=== PATIENT | female | born 1950 | race African-American/Black ===

== ENCOUNTER 2017-03-12 13:24 | Inpatient (IN) | payer MEDICARE, MEDICAID ==
[~2017-03-12] VITALS: Ht 152.4 cm; Wt 89.1 kg
[2017-03-12 14:13] LABS: Basophils # (auto) 0 uL; Basophils % (auto) 0.7 % (0.0-2.0); DEFINITIVE VIEW TRANSMISSION; Eosinophils # (auto) 0.1 uL; Eosinophils % (auto) 2.4 % (0.0-7.0); Hematocrit 37.1 % (36.0-46.0); Lymphocytes # (auto) 1.6 uL; Lymphocytes % (auto) 46.8 % (10.0-50.0); Mean Corpuscular Hemoglobin 25.8 pg (28.0-32.0); Mean Corpuscular Hgb Conc. 32.5 g/dL (32.0-36.0); Mean Corpuscular Volume 79.3 fL (80.0-100.0); Mean Platelet Volume 7.9 fL (7.4-10.4); Monocytes # (auto) 0.3 uL; Monocytes % (auto) 8.5 % (0.0-12.0); Neutrophils # (auto) 1.4 uL; Neutrophils % (auto) 41.6 % (37.0-80.0); Platelet Count (auto) 338 10^3/uL (140-450); Red Cell Distribution Width 14.3 % (11.6-16.0); White Blood Cell 3.3 10^3/uL (4.4-10.8)
[2017-03-12 14:39] LABS: Albumin 3.1 g/dL (3.4-5.0); Alkaline Phosphatase 83 U/L (45-117); Anion Gap 11 (5-15); Aspartate Aminotransferase 14 U/L (15-37); BUN/Creatinine Ratio 10.1; Bilirubin, Total 0.3 mg/dL (0.2-1.0); Blood Urea Nitrogen 8 mg/dL (7-18); Calcium 8.9 mg/dL (8.5-10.1); Carbon Dioxide 27 mmol/L (21-32); Chloride 108 mmol/L (98-107); GFR African American 94 mL/min; GFR Non-African American 78 mL/min; Glucose 80 mg/dL (74-106); Magnesium 1.9 mg/dL (1.6-2.6); Potassium 3.1 mmol/L (3.5-5.1); Sodium 146 mmol/L (136-145); Total Protein 7.4 g/dL (6.4-8.2)
[2017-03-12] MEDS ORDERED: ASPirin 81 mg TAB PO ONE (20:00)
[2017-03-12] MEDS ORDERED: POTASSIUM CHL 20 Meq TABLET PO ONE (20:00)
[2017-03-12] MEDS: ATORVASTATIN 20 MG TAB PO SCH (22:12)
[2017-03-12] MEDS: FAMOTIDINE 20 MG TAB PO SCH (22:13)
[2017-03-12] MEDS: ENOXAPARIN SOD 40 MG/0.4 ML SYRINGE SC SCH (22:14)
[2017-03-12] MEDS ORDERED: TEMAZEPAM 15 MG CAP PO PRN (22:15)
[2017-03-12] MEDS ORDERED: HYDROcodone-ACET 5/325MG TAB PO PRN (22:15)
[2017-03-12] MEDS ORDERED: ACETAMINOPHEN 325 MG TAB PO PRN (22:15)
[2017-03-12] MEDS ORDERED: ONDANSETRON HCL 4 MG/2 ML VIAL IV PRN (22:15)
[2017-03-12] MEDS: DONEPEZIL HYDROCHLORIDE 5 MG TAB PO SCH (22:21)
[2017-03-12] MEDS: CARVEDILOL 3.125 MG TAB PO SCH (22:22)
[2017-03-12 22:30] VITALS: BP 104/41
[2017-03-12 23:05] VITALS: BP 104/41
[2017-03-13] MEDS ORDERED: ZOLP10TA PO (01:46)
[2017-03-13] MEDS ORDERED: FLUO20CA19 PO (01:46)
[2017-03-13] MEDS ORDERED: OXY10CRT PO (01:46)
[2017-03-13] MEDS ORDERED: DONE10TA17 PO (01:46)
[2017-03-13] MEDS ORDERED: NORT25CA PO (01:46)
[2017-03-13] MEDS ORDERED: AML5T PO (01:46)
[2017-03-13] MEDS ORDERED: METO-169 PO (01:46)
[2017-03-13 03:26] LABS: Urine Bilirubin Negative (Negative); Urine Blood Negative /uL (Negative); Urine Color Yellow (Yellow); Urine Glucose Normal (Normal); Urine Ketone Negative (Negative); Urine Mucus FEW (None Seen); Urine Nitrite Negative (Negative); Urine RBC 1 /hpf (0 - 4); Urine Squamous Epithelial Cell FEW /hpf (<5); Urine Urobilinogen Normal (Negative)
[2017-03-13 05:00] VITALS: BP_SYST 127; BP_SYST 144; BP_DIAS 63; BP_DIAS 73
[2017-03-13 06:38] LABS: Basophils # (auto) 0 uL; Basophils % (auto) 0.4 % (0.0-2.0); DEFINITIVE VIEW TRANSMISSION; Eosinophils # (auto) 0.1 uL; Eosinophils % (auto) 2.1 % (0.0-7.0); Hematocrit 36.4 % (36.0-46.0); Hemoglobin 11.9 g/dL (12.2-16.2); Lymphocytes # (auto) 1.8 uL; Lymphocytes % (auto) 42.8 % (10.0-50.0); Mean Corpuscular Hemoglobin 26.2 pg (28.0-32.0); Mean Corpuscular Hgb Conc. 32.7 g/dL (32.0-36.0); Mean Platelet Volume 7.9 fL (7.4-10.4); Monocytes # (auto) 0.4 uL; Monocytes % (auto) 9.7 % (0.0-12.0); Neutrophils # (auto) 1.9 uL; Platelet Count (auto) 303 10^3/uL (140-450); Red Cell Distribution Width 14.2 % (11.6-16.0); White Blood Cell 4.1 10^3/uL (4.4-10.8)
[2017-03-13 07:09] LABS: Albumin 2.6 g/dL (3.4-5.0); BUN/Creatinine Ratio 14.3; Bilirubin, Total 0.3 mg/dL (0.2-1.0); Calcium 8.4 mg/dL (8.5-10.1); Potassium 3.4 mmol/L (3.5-5.1); Total Protein 6.6 g/dL (6.4-8.2)
[2017-03-13 09:00] VITALS: BP 119/67
[2017-03-13] MEDS: FAMOTIDINE 20 MG TAB PO SCH ×2 (10:00→21:45)
[2017-03-13] MEDS: FLUoxetine HCL 20 MG CAP PO SCH (10:00)
[2017-03-13] MEDS: METOPROLOL SUCCINATE XL 50 MG TAB PO SCH (10:00)
[2017-03-13] MEDS: ASPirin 325 MG TAB PO SCH (10:00)
[2017-03-13] MEDS: amLODIPine BESYLATE 5 MG TAB PO SCH (10:01)
[2017-03-13] MEDS: CARVEDILOL 3.125 MG TAB PO SCH ×2 (10:01→21:45)
[2017-03-13 12:15] VITALS: BP 140/77
[2017-03-13 15:54] VITALS: BP 112/61
[2017-03-13] MEDS: ENOXAPARIN SOD 40 MG/0.4 ML SYRINGE SC SCH (21:44)
[2017-03-13] MEDS: ATORVASTATIN 20 MG TAB PO SCH (21:44)
[2017-03-13] MEDS: DONEPEZIL HYDROCHLORIDE 5 MG TAB PO SCH (21:45)
[2017-03-13 22:00] VITALS: BP 104/64
[2017-03-13] MEDS ORDERED: CALCIUM CARB 500 MG CHEW TAB PO PRN (23:15)
[2017-03-14 05:00] VITALS: BP 125/63
[2017-03-14 10:02] VITALS: BP 131/99
[2017-03-14] MEDS: ASPirin 325 MG TAB PO SCH (10:25)
[2017-03-14] MEDS: FAMOTIDINE 20 MG TAB PO SCH ×2 (10:25→21:50)
[2017-03-14] MEDS: amLODIPine BESYLATE 5 MG TAB PO SCH (10:26)
[2017-03-14] MEDS: FLUoxetine HCL 20 MG CAP PO SCH (10:26)
[2017-03-14] MEDS: CARVEDILOL 3.125 MG TAB PO SCH (10:27)
[2017-03-14] MEDS: METOPROLOL SUCCINATE XL 50 MG TAB PO SCH (10:27)
[2017-03-14 10:35] LABS: BUN/Creatinine Ratio 12.6; Calcium 8.4 mg/dL (8.5-10.1); Magnesium 1.8 mg/dL (1.6-2.6); Potassium 3.5 mmol/L (3.5-5.1)
[2017-03-14 10:56] LABS: Hematocrit 36.7 % (36.0-46.0); Hemoglobin 12.1 g/dL (12.2-16.2)
[2017-03-14] MEDS ORDERED: MAGNESIUM SULFATE 1GM/100ML 100 ML IV ONE (11:00)
[2017-03-14] MEDS ORDERED: POTASSIUM CHL 20 Meq TABLET PO ONE (11:15)
[2017-03-14 17:07] VITALS: BP 97/61
[2017-03-14 21:07] VITALS: BP 113/59
[2017-03-14 21:10] VITALS: BP 117/72
[2017-03-14 21:16] VITALS: BP 97/61
[2017-03-14] MEDS: ENOXAPARIN SOD 40 MG/0.4 ML SYRINGE SC SCH (21:48)
[2017-03-14] MEDS: DONEPEZIL HYDROCHLORIDE 5 MG TAB PO SCH (21:49)
[2017-03-14] MEDS: ATORVASTATIN 20 MG TAB PO SCH (21:50)
[2017-03-15 05:01] VITALS: BP 101/58
[2017-03-15 06:00] LABS: Cholesterol 182 mg/dL (< 200); HDL Cholesterol 68 mg/dL (40-59); LDL Cholesterol 108 mg/dL (< 100); Triglycerides 68 mg/dL (< 150)
[2017-03-15 08:45] VITALS: BP 148/84
[2017-03-15] MEDS ORDERED: ASPirin 325 MG TAB PO SCH (10:00)
[2017-03-15] MEDS: FAMOTIDINE 20 MG TAB PO SCH ×2 (10:41→22:09)
[2017-03-15] MEDS: FLUoxetine HCL 20 MG CAP PO SCH (10:41)
[2017-03-15] MEDS: amLODIPine BESYLATE 5 MG TAB PO SCH (10:41)
[2017-03-15] MEDS: METOPROLOL SUCCINATE XL 50 MG TAB PO SCH (10:42)
[2017-03-15 12:59] VITALS: BP 111/54
[2017-03-15] MEDS ORDERED: LORazepam 2MG/ML-1ML VIAL IV ONE (14:15)
[2017-03-15] MEDS ORDERED: MAGNESIUM OXIDE 400 MG TAB PO ONE (14:15)
[2017-03-15 16:21] VITALS: BP 111/59
[2017-03-15 17:16] VITALS: BP 97/46
[2017-03-15 21:50] VITALS: BP 115/62
[2017-03-15] MEDS: ATORVASTATIN 20 MG TAB PO SCH (22:09)
[2017-03-15] MEDS: DONEPEZIL HYDROCHLORIDE 5 MG TAB PO SCH (22:09)
== END 2017-03-15 22:30 | disposition home or self-care (01) | DRG 65 ==
LOC: ER 13:24 → OVERFLOW 13:25 → EAST 23:08
PROVIDERS: ADMIT Internal Medicine; ATTEND Internal Medicine
PROC: 5A09357 Assistance with Respiratory Ventilation, Less than 24 Consecutive Hours, Continuous Positive Airway Pressure (ICD-10-PCS; principal; 2017-03-14)
DX: I63.9 Cerebral infarction, unspecified (principal); E44.1 Mild protein-calorie malnutrition; E87.5 Hyperkalemia; E66.9 Obesity, unspecified; F32.9 Major depressive disorder, single episode, unspecified; E87.6 Hypokalemia; F41.9 Anxiety disorder, unspecified; J32.0 Chronic maxillary sinusitis; Z90.710 Acquired absence of both cervix and uterus; Z80.6 Family history of leukemia; Z82.0 Family history of epilepsy and other diseases of the nervous system; Z82.49 Family history of ischemic heart disease and other diseases of the circulatory system; Z82.3 Family history of stroke; Z83.3 Family history of diabetes mellitus; Z79.82 Long term (current) use of aspirin; Z86.73 Personal history of transient ischemic attack (TIA), and cerebral infarction without residual deficits
CPT/HCPCS: 36415; 70450; 70551; 80048; 80053; 80061; 81001; 83090; 83735; 84484; 85014; 85018; 85025; 93005; 93306; 93886; 94660; 94762; 99291; J2405

== ENCOUNTER 2017-11-29 17:33 | Emergency (ER) | payer MEDICARE, MEDICAID ==
[~2017-11-29] VITALS: Ht 152.4 cm; Wt 74.8 kg
[~2017-11-29 17:33] MED LIST: AML5T PO; DONE10TA17 PO; FLUO20CA19 PO; METO-169 PO; NORT25CA PO; OXY10CRT PO; ZOLP10TA PO
[2017-11-29 18:48] VITALS: BP 152/66
[2017-11-29] MEDS ORDERED: KETOROLAC TROMETH 60MG/2ML VIAL IM ONE (19:30)
== END 2017-11-29 20:23 | disposition home or self-care (01) ==
LOC: ER 17:38
DX: M54.5 Low back pain (principal); I10 Essential (primary) hypertension; Z90.710 Acquired absence of both cervix and uterus; Z79.899 Other long term (current) drug therapy
CPT/HCPCS: 74176; 96372; 99284; J1885

== ENCOUNTER 2017-12-28 22:31 | Inpatient (IN) | payer MEDICARE, MEDICAID ==
[~2017-12-28] VITALS: Ht 152.4 cm; Wt 80.8 kg
[2017-12-28] MEDS ORDERED: cloNIDine HCL 0.1 MG TAB PO ONE (23:00)
[2017-12-28] MEDS ORDERED: PANT40TA2 PO (23:11)
[2017-12-28] MEDS ORDERED: CYCL5TAB PO (23:11)
[2017-12-28] MEDS ORDERED: NAP500T PO (23:11)
[2017-12-28 23:39] LABS: Alanine Aminotransferase 15 U/L (13-56); Albumin 3.4 g/dL (3.4-5.0); Alkaline Phosphatase 81 U/L (45-117); Anion Gap 9 (5-15); Aspartate Aminotransferase 8 U/L (15-37); BUN/Creatinine Ratio 16.7; Bilirubin, Total 0.6 mg/dL (0.2-1.0); Blood Urea Nitrogen 11 mg/dL (7-18); Calcium 8.9 mg/dL (8.5-10.1); Carbon Dioxide 23 mmol/L (21-32); Chloride 109 mmol/L (98-107); GFR African American 115 mL/min; GFR Non-African American 95 mL/min; Glucose 82 mg/dL (74-106); Potassium 3.3 mmol/L (3.5-5.1); Sodium 141 mmol/L (136-145); Total Protein 7.7 g/dL (6.4-8.2)
[2017-12-28 23:45] LABS: Monocytes # (auto) 0.5 uL
[2017-12-28 23:47] LABS: Basophils # (auto) 0.1 uL; Basophils % (auto) 1.6 % (0.0-2.0); Eosinophils # (auto) 0.1 uL; Eosinophils % (auto) 3.1 % (0.0-7.0); Hematocrit 38.7 % (36.0-46.0); Hemoglobin 12.7 g/dL (12.2-16.2); Lymphocytes # (auto) 1.6 uL; Mean Corpuscular Hemoglobin 26.7 pg (28.0-32.0); Mean Corpuscular Hgb Conc. 32.8 g/dL (32.0-36.0); Mean Corpuscular Volume 81.3 fL (80.0-100.0); Monocytes % (auto) 10.9 % (0.0-12.0); Neutrophils # (auto) 2.3 uL; Neutrophils % (auto) 49.4 % (37.0-80.0); Nucleated Red Blood Cells % 0.2 %; Platelet Count (auto) 232 10^3/uL (140-450); Red Blood Cells 4.77 10^6/uL (4.0-5.20); Red Cell Distribution Width 15.2 % (11.8-14.3); White Blood Cell 4.6 10^3/uL (4.4-10.8)
[2017-12-29] MEDS ORDERED: NALBUPHINE HCL 10 MG/1ml INJECTION IV ONE (00:45)
[2017-12-29] MEDS ORDERED: ONDANSETRON HCL 4 MG/2 ML VIAL IV ONE (01:30)
[2017-12-29] MEDS ORDERED: POTASSIUM CHL 20MEQ/100ML 100 ML IV ONE (02:15)
[2017-12-29] MEDS ORDERED: SODIUM CHLORIDE 0.9% 500 ML IV ONE (02:15)
[2017-12-29] MEDS ORDERED: SODIUM CHLORIDE 0.9% 1,000 ML IV SCH (03:01)
[2017-12-29] MEDS ORDERED: NITROGLYCERIN 0.4 MG SL TAB SL PRN (03:15)
[2017-12-29] MEDS ORDERED: ACETAMINOPHEN 325 MG TAB PO PRN (03:15)
[2017-12-29] MEDS ORDERED: MORPHINE SULFATE 4 MG/ML SYR/VIAL IV PRN (03:15)
[2017-12-29] MEDS ORDERED: ONDANSETRON HCL 4 MG/2 ML VIAL IV PRN (03:15)
[2017-12-29] MEDS ORDERED: ALBUMIN 5% 250 ML IV ONE (03:45)
[2017-12-29 03:55] LABS: Urine Bacteria NONE SEEN /hpf (None Seen); Urine Blood Negative /uL (Negative); Urine Specific Gravity 1.011 (1.001-1.035); Urine WBC 1 /hpf (0 - 5)
[2017-12-29 04:05] LABS: Alcohol, Urine < 3.0 mg/dL (0-5); Amphetamine Screen, Urine NEGATIVE (NEGATIVE); Barbiturate Scree,Urine NEGATIVE (NEGATIVE); Benzodiazephine Screen, Urine NEGATIVE (NEGATIVE); Cannabinoid Screen, Urine NEGATIVE (NEGATIVE); Cocaine Screen, Urine NEGATIVE (NEGATIVE); Opiate Scree,Urine NEGATIVE (NEGATIVE); Phencyclidine Screen, Urine NEGATIVE (NEGATIVE)
[2017-12-29] MEDS ORDERED: NOREPINEPHRINE 8 MG/250ML KIT 250 ML IV ONE (05:03)
[2017-12-29 06:50] VITALS: BP 118/72
[2017-12-29] MEDS: NOREPINEPHRINE 8 MG/250ML KIT 250 ML IV SCH (07:10)
[2017-12-29 08:30] VITALS: BP 138/78
[2017-12-29 09:15] VITALS: BP 138/78
[2017-12-29] MEDS: amLODIPine BESYLATE 5 MG TAB PO SCH (09:22)
[2017-12-29] MEDS: cefTRIAXone 1GM/10ml IVPUSH 10 ML IV SCH (09:47)
[2017-12-29] MEDS: PANTOPRAZOLE 40 MG TAB PO SCH (09:48)
[2017-12-29] MEDS: ENOXAPARIN SOD 40 MG/0.4 ML SYRINGE SC SCH (09:48)
[2017-12-29] MEDS ORDERED: METOPROLOL SUCCINATE XL 50 MG TAB PO SCH (10:00)
[2017-12-29] MEDS ORDERED: SODIUM CHLORIDE 0.9% 1,000 ML IV ONE (13:45)
[2017-12-29] MEDS ORDERED: POTASSIUM CHL 20 Meq TABLET PO ONE (14:00)
[2017-12-29] MEDS: SODIUM CHLORIDE 0.9% 1,000 ML IV SCH (16:15)
[2017-12-29] MEDS: DONEPEZIL HYDROCHLORIDE 5 MG TAB PO SCH (22:00)
[2017-12-29] MEDS: ATORVASTATIN 20 MG TAB PO SCH (22:00)
[2017-12-29] MEDS: HYDROcodone-ACET 7.5/325MG TAB PO PRN (22:47)
[2017-12-30] MEDS: SODIUM CHLORIDE 0.9% 1,000 ML IV SCH ×3 (02:15→22:46)
[2017-12-30] MEDS: HYDROcodone-ACET 7.5/325MG TAB PO PRN ×2 (04:29→21:13)
[2017-12-30] MEDS: NOREPINEPHRINE 8 MG/250ML KIT 250 ML IV SCH (05:15)
[2017-12-30 06:37] LABS: Basophils # (auto) 0 uL; Basophils % (auto) 0.3 % (0.0-2.0); Eosinophils # (auto) 0.2 uL; Lymphocytes # (auto) 1.6 uL; Neutrophils # (auto) 1.5 uL; White Blood Cell 3.7 10^3/uL (4.4-10.8)
[2017-12-30 06:40] LABS: Eosinophils % (auto) 4.7 % (0.0-7.0); Hemoglobin 10.5 g/dL (12.2-16.2); Lymphocytes % (auto) 42.4 % (10.0-50.0); Mean Corpuscular Hemoglobin 27.1 pg (28.0-32.0); Mean Corpuscular Hgb Conc. 32.9 g/dL (32.0-36.0); Mean Corpuscular Volume 82.5 fL (80.0-100.0); Monocytes # (auto) 0.4 uL; Monocytes % (auto) 11.2 % (0.0-12.0); Neutrophils % (auto) 41.4 % (37.0-80.0); Red Blood Cells 3.87 10^6/uL (4.0-5.20); Red Cell Distribution Width 15.8 % (11.8-14.3)
[2017-12-30 06:41] LABS: Platelet Count (auto) 183 10^3/uL (140-450)
[2017-12-30 06:56] LABS: Albumin 2.8 g/dL (3.4-5.0); BUN/Creatinine Ratio 18.8; Calcium 8.7 mg/dL (8.5-10.1)
[2017-12-30 07:00] LABS: Bilirubin, Total 0.3 mg/dL (0.2-1.0); Total Protein 6.1 g/dL (6.4-8.2)
[2017-12-30] MEDS: cefTRIAXone 1GM/10ml IVPUSH 10 ML IV SCH (08:53)
[2017-12-30] MEDS: PANTOPRAZOLE 40 MG TAB PO SCH (09:27)
[2017-12-30] MEDS: ENOXAPARIN SOD 40 MG/0.4 ML SYRINGE SC SCH (09:27)
[2017-12-30] MEDS: amLODIPine BESYLATE 5 MG TAB PO SCH (09:27)
[2017-12-30 10:42] VITALS: BP 119/63
[2017-12-30 12:00] VITALS: BP 111/52
[2017-12-30 17:14] VITALS: BP 111/61
[2017-12-30 20:00] VITALS: BP 120/58
[2017-12-30 22:00] VITALS: BP 120/58
[2017-12-30] MEDS: DONEPEZIL HYDROCHLORIDE 5 MG TAB PO SCH ×2 (22:00→22:46)
[2017-12-30] MEDS: ATORVASTATIN 20 MG TAB PO SCH (22:46)
[2017-12-31] VITALS (7 sets, daily range): BP systolic 124–144; BP diastolic 60–78
[2017-12-31 05:39] LABS: Basophils # (auto) 0 uL; Eosinophils # (auto) 0.1 uL; Lymphocytes # (auto) 1.6 uL; Nucleated Red Blood Cells % 0.1 %
[2017-12-31 05:42] LABS: Basophils % (auto) 0.8 % (0.0-2.0); Eosinophils % (auto) 3.2 % (0.0-7.0); Hematocrit 33.1 % (36.0-46.0); Hemoglobin 10.8 g/dL (12.2-16.2); Lymphocytes % (auto) 40.2 % (10.0-50.0); Mean Corpuscular Hemoglobin 26.9 pg (28.0-32.0); Mean Corpuscular Hgb Conc. 32.6 g/dL (32.0-36.0); Mean Corpuscular Volume 82.5 fL (80.0-100.0); Monocytes # (auto) 0.4 uL; Monocytes % (auto) 11.2 % (0.0-12.0); Neutrophils # (auto) 1.7 uL; Neutrophils % (auto) 44.6 % (37.0-80.0); Platelet Count (auto) 175 10^3/uL (140-450); Red Blood Cells 4.01 10^6/uL (4.0-5.20); Red Cell Distribution Width 15.3 % (11.8-14.3); White Blood Cell 3.9 10^3/uL (4.4-10.8)
[2017-12-31 06:02] LABS: Calcium 8.7 mg/dL (8.5-10.1); Potassium 3.8 mmol/L (3.5-5.1)
[2017-12-31 06:04] LABS: BUN/Creatinine Ratio 16.3
[2017-12-31] MEDS: amLODIPine BESYLATE 5 MG TAB PO SCH (09:03)
[2017-12-31] MEDS: PANTOPRAZOLE 40 MG TAB PO SCH (09:05)
[2017-12-31] MEDS: ENOXAPARIN SOD 40 MG/0.4 ML SYRINGE SC SCH (09:05)
[2017-12-31] MEDS: cefTRIAXone 1GM/10ml IVPUSH 10 ML IV SCH (09:05)
[2017-12-31] MEDS: SODIUM CHLORIDE 0.9% 1,000 ML IV SCH ×2 (09:06→20:08)
[2017-12-31] MEDS ORDERED: LORazepam 2MG/ML-1ML VIAL IV PRN (12:30)
[2017-12-31] MEDS: HYDROcodone-ACET 7.5/325MG TAB PO PRN (20:27)
[2017-12-31] MEDS: DONEPEZIL HYDROCHLORIDE 5 MG TAB PO SCH ×2 (21:43→21:58)
[2017-12-31] MEDS: ATORVASTATIN 20 MG TAB PO SCH (21:43)
[2018-01-01] VITALS (7 sets, daily range): BP systolic 120–148; BP diastolic 52–77
[2018-01-01] MEDS: SODIUM CHLORIDE 0.9% 1,000 ML IV SCH ×2 (03:52→15:01)
[2018-01-01 06:48] LABS: Basophils # (auto) 0 uL; Eosinophils # (auto) 0.2 uL; Hemoglobin 11.4 g/dL (12.2-16.2); Mean Corpuscular Hemoglobin 26.3 pg (28.0-32.0); Mean Corpuscular Hgb Conc. 32.4 g/dL (32.0-36.0); Nucleated Red Blood Cells % 0.1 %
[2018-01-01 06:50] LABS: Basophils % (auto) 1.1 % (0.0-2.0); Eosinophils % (auto) 4.2 % (0.0-7.0); Hematocrit 35.3 % (36.0-46.0); Lymphocytes # (auto) 1.4 uL; Lymphocytes % (auto) 34.1 % (10.0-50.0); Mean Corpuscular Volume 81.4 fL (80.0-100.0); Monocytes # (auto) 0.5 uL; Monocytes % (auto) 11.3 % (0.0-12.0); Neutrophils % (auto) 49.3 % (37.0-80.0); Platelet Count (auto) 191 10^3/uL (140-450); Red Blood Cells 4.33 10^6/uL (4.0-5.20)
[2018-01-01 07:06] LABS: Calcium 8.9 mg/dL (8.5-10.1)
[2018-01-01 07:09] LABS: BUN/Creatinine Ratio 10.2
[2018-01-01] MEDS: PANTOPRAZOLE 40 MG TAB PO SCH (10:19)
[2018-01-01] MEDS: amLODIPine BESYLATE 5 MG TAB PO SCH (10:19)
[2018-01-01] MEDS: ENOXAPARIN SOD 40 MG/0.4 ML SYRINGE SC SCH (10:19)
[2018-01-01] MEDS: POTASSIUM CHL 20 Meq TABLET PO SCH (15:01)
[2018-01-01] MEDS: HYDROcodone-ACET 7.5/325MG TAB PO PRN (20:05)
[2018-01-01] MEDS: ATORVASTATIN 20 MG TAB PO SCH (21:56)
[2018-01-01] MEDS: DONEPEZIL HYDROCHLORIDE 5 MG TAB PO SCH (21:56)
[2018-01-02] MEDS: SODIUM CHLORIDE 0.9% 1,000 ML IV SCH ×2 (01:39→10:39)
[2018-01-02 05:34] VITALS: BP 180/86
[2018-01-02 06:29] LABS: Basophils # (auto) 0 uL; Eosinophils # (auto) 0.2 uL; Hemoglobin 11.6 g/dL (12.2-16.2); Lymphocytes # (auto) 1.5 uL; Monocytes # (auto) 0.4 uL; Neutrophils # (auto) 1.7 uL; Red Cell Distribution Width 15.1 % (11.8-14.3)
[2018-01-02 06:31] LABS: Basophils % (auto) 1.2 % (0.0-2.0); Hematocrit 36.1 % (36.0-46.0); Lymphocytes % (auto) 38.1 % (10.0-50.0); Mean Corpuscular Hemoglobin 26.2 pg (28.0-32.0); Mean Corpuscular Volume 81.9 fL (80.0-100.0); Monocytes % (auto) 10.7 % (0.0-12.0); Nucleated Red Blood Cells % 0.2 %; Platelet Count (auto) 212 10^3/uL (140-450); Red Blood Cells 4.41 10^6/uL (4.0-5.20); White Blood Cell 3.8 10^3/uL (4.4-10.8)
[2018-01-02 06:40] VITALS: BP 149/83
[2018-01-02 06:40] LABS: BUN/Creatinine Ratio 10.3; Calcium 8.3 mg/dL (8.5-10.1); Potassium 3.3 mmol/L (3.5-5.1)
[2018-01-02 09:00] VITALS: BP 133/67
[2018-01-02] MEDS ORDERED: POTASSIUM CHL 20 Meq TABLET PO ONE (09:45)
[2018-01-02] MEDS: amLODIPine BESYLATE 5 MG TAB PO SCH (10:31)
[2018-01-02] MEDS: POTASSIUM CHL 20 Meq TABLET PO SCH (10:33)
[2018-01-02] MEDS: PANTOPRAZOLE 40 MG TAB PO SCH (10:34)
[2018-01-02] MEDS: ENOXAPARIN SOD 40 MG/0.4 ML SYRINGE SC SCH (10:34)
[2018-01-02 13:00] VITALS: BP 134/70
[2018-01-02 13:36] VITALS: BP 134/70
== END 2018-01-02 14:50 | disposition home or self-care (01) | DRG 314 ==
LOC: EDBD 22:31 → ER 22:42 → TELE 22:43 → TELE-WESTW 12-30 10:40
PROVIDERS: ADMIT Nurse Practitioner; ATTEND Internal Medicine
PROC: 5A09357 Assistance with Respiratory Ventilation, Less than 24 Consecutive Hours, Continuous Positive Airway Pressure (ICD-10-PCS; principal; 2017-12-29)
PROC: 5A09357 Assistance with Respiratory Ventilation, Less than 24 Consecutive Hours, Continuous Positive Airway Pressure (ICD-10-PCS; 2018-01-01)
DX: I95.9 Hypotension, unspecified (principal); G93.40 Encephalopathy, unspecified; E87.2 Acidosis; G45.9 Transient cerebral ischemic attack, unspecified; I69.354 Hemiplegia and hemiparesis following cerebral infarction affecting left non-dominant side; E86.0 Dehydration; E16.2 Hypoglycemia, unspecified; G47.33 Obstructive sleep apnea (adult) (pediatric); E87.6 Hypokalemia; I10 Essential (primary) hypertension; J32.0 Chronic maxillary sinusitis; E66.9 Obesity, unspecified; F32.9 Major depressive disorder, single episode, unspecified; F41.9 Anxiety disorder, unspecified; M19.90 Unspecified osteoarthritis, unspecified site; Z79.899 Other long term (current) drug therapy; Z80.6 Family history of leukemia; Z82.0 Family history of epilepsy and other diseases of the nervous system; Z82.3 Family history of stroke; Z82.49 Family history of ischemic heart disease and other diseases of the circulatory system; Z83.3 Family history of diabetes mellitus; Z90.710 Acquired absence of both cervix and uterus
CPT/HCPCS: 36415; 36600; 51702; 70450; 70551; 71045; 72125; 80048; 80053; 80307; 81001; 82805; 82962; 83605; 84484; 85025; 87040; 93005; 93306; 93886; 94660; 95819; 96361; 96365; 96375; J2405; J3480

== ENCOUNTER 2018-07-09 11:50 | Observation (INO) | payer MEDICARE, MEDICAID ==
[~2018-07-09] VITALS: Ht 152.4 cm; Wt 79.4 kg
[~2018-07-09 11:50] MED LIST changes: +CYCL5TAB PO; +NAP500T PO; +PANT40TA2 PO
[2018-07-09 13:40] LABS: Eosinophils # (auto) 0.1 uL; Lymphocytes # (auto) 1.5 uL; Mean Corpuscular Volume 80.7 fL (80.0-100.0); Monocytes # (auto) 0.3 uL; Neutrophils # (auto) 2.4 uL; Nucleated Red Blood Cells % 0.1 %; White Blood Cell 4.4 10^3/uL (4.4-10.8)
[2018-07-09 13:42] LABS: Basophils # (auto) 0.1 uL; Basophils % (auto) 1.1 % (0.0-2.0); Eosinophils % (auto) 1.9 % (0.0-7.0); Hematocrit 39.2 % (36.0-46.0); Hemoglobin 12.8 g/dL (12.2-16.2); Lymphocytes % (auto) 34.1 % (10.0-50.0); Mean Corpuscular Hemoglobin 26.3 pg (28.0-32.0); Mean Corpuscular Hgb Conc. 32.6 g/dL (32.0-36.0); Monocytes % (auto) 7.3 % (0.0-12.0); Neutrophils % (auto) 55.6 % (37.0-80.0); Platelet Count (auto) 246 10^3/uL (140-450); Red Blood Cells 4.86 10^6/uL (4.0-5.20); Red Cell Distribution Width 16.1 % (11.8-14.3)
[2018-07-09 13:55] LABS: Albumin 3.3 g/dL (3.4-5.0); BUN/Creatinine Ratio 17.2; Calcium 8.5 mg/dL (8.5-10.1); Potassium 3.2 mmol/L (3.5-5.1)
[2018-07-09 13:57] LABS: Bilirubin, Total 0.2 mg/dL (0.2-1.0); Total Protein 7.3 g/dL (6.4-8.2)
[2018-07-09] MEDS ORDERED: POTASSIUM CHL 20 Meq TABLET PO ONE (19:00)
[2018-07-09 19:26] VITALS: BP 144/89
== END 2018-07-09 19:27 | disposition home or self-care (01) | DRG 885 ==
LOC: ER 11:50 → OVERFLOW 11:51 → ER 19:27
PROVIDERS: ADMIT Family Medicine; ATTEND Family Medicine
DX: F33.1 Major depressive disorder, recurrent, moderate (principal); R45.851 Suicidal ideations; I10 Essential (primary) hypertension; K21.9 Gastro-esophageal reflux disease without esophagitis; Z86.73 Personal history of transient ischemic attack (TIA), and cerebral infarction without residual deficits
CPT/HCPCS: 36415; 71045; 80053; 85025; 99285; G0378

== ENCOUNTER → 2020-05-18 | Emergency (ER) | payer MEDICARE, MEDICAID ==
[~2020-05-18] VITALS: Ht 152.4 cm; Wt 76.7 kg
[~2020-05-18] MED LIST changes: +ASPI81CH43 PO; +ATOR20TA50 PO; +HYDROcodone-ACET 7.5/325MG TAB PO ONE
[2020-05-18 18:10] VITALS: BP 137/61
[2020-05-18 18:53] LABS: Urine Bacteria NONE SEEN /hpf (None Seen); Urine Blood Negative /uL (Negative); Urine Hyaline Cast FEW /lpf (0 - 2); Urine Mucus FEW (None Seen); Urine Specific Gravity 1.028 (1.001-1.035); Urine WBC <1 /hpf (0 - 5)
[2020-05-18 19:03] LABS: Basophils # (auto) 0 10 ^3/uL (0-0.2); Eosinophils # (auto) 0.1 10 ^3/uL (0-0.8)
[2020-05-18 19:05] LABS: Basophils % (auto) 0.7 % (0.0-2.0); Hematocrit 41.7 % (36.0-46.0); Hemoglobin 13.2 g/dL (12.2-16.2); Lymphocytes # (auto) 2.2 10 ^3/uL (0.4-5.4); Lymphocytes % (auto) 42.8 % (10.0-50.0); Mean Corpuscular Hemoglobin 25.2 pg (28.0-32.0); Mean Corpuscular Hgb Conc. 31.7 g/dL (32.0-36.0); Mean Corpuscular Volume 79.6 fL (80.0-100.0); Monocytes # (auto) 0.5 10 ^3/uL (0-1.3); Monocytes % (auto) 9.2 % (0.0-12.0); Neutrophils # (auto) 2.4 10 ^3/uL (1.6-8.6); Neutrophils % (auto) 45.3 % (37.0-80.0); Nucleated Red Blood Cells % 0.2 %; Platelet Count (auto) 238 10^3/uL (140-450); Red Blood Cells 5.23 10^6/uL (4.0-5.20); Red Cell Distribution Width 16.6 % (11.8-14.3); White Blood Cell 5.2 10^3/uL (4.4-10.8)
[2020-05-18 19:08] LABS: Amphetamine Screen, Urine NEGATIVE (NEGATIVE); Barbiturate Scree,Urine NEGATIVE (NEGATIVE); Benzodiazephine Screen, Urine NEGATIVE (NEGATIVE); Cocaine Screen, Urine NEGATIVE (NEGATIVE); Opiate Scree,Urine NEGATIVE (NEGATIVE); Phencyclidine Screen, Urine NEGATIVE (NEGATIVE)
[2020-05-18 19:14] LABS: Cannabinoid Screen, Urine NEGATIVE (NEGATIVE)
[2020-05-18 19:24] LABS: Albumin 3.5 g/dL (3.4-5.0); BUN/Creatinine Ratio 17.4; Potassium 3.9 mmol/L (3.5-5.1)
[2020-05-18 19:27] LABS: Bilirubin, Total 0.3 mg/dL (0.2-1.0); Total Protein 7.9 g/dL (6.4-8.2)
== END | disposition home or self-care (01) ==
LOC: ER 14:02
DX: S39.012A Strain of muscle, fascia and tendon of lower back, initial encounter (principal); M54.31 Sciatica, right side; I12.9 Hypertensive chronic kidney disease with stage 1 through stage 4 chronic kidney disease, or unspecified chronic kidney disease; N18.9 Chronic kidney disease, unspecified; K21.9 Gastro-esophageal reflux disease without esophagitis; E78.5 Hyperlipidemia, unspecified; Z90.710 Acquired absence of both cervix and uterus; Z94.0 Kidney transplant status; Z86.73 Personal history of transient ischemic attack (TIA), and cerebral infarction without residual deficits; X50.0XXA Overexertion from strenuous movement or load, initial encounter; Y93.89 Activity, other specified; Y92.89 Other specified places as the place of occurrence of the external cause; Y99.8 Other external cause status
CPT/HCPCS: 36415; 74176; 80053; 80307; 81001; 82150; 83690; 85025

== ENCOUNTER 2021-06-26 20:23 | Emergency (ER) | payer MEDICARE, MEDICAID ==
[~2021-06-26 20:23] MED LIST changes: -DONE10TA17 PO; +DONE10TA5 PO; -HYDROcodone-ACET 7.5/325MG TAB PO ONE; -METO-169 PO; +METO-289 PO
[2021-06-26] MEDS ORDERED: diphenhdrAMINE HCL 25 MG CAP PO ONE (22:45)
== END 2021-06-27 00:12 | disposition left against medical advice (07) ==
LOC: ER 20:24
DX: L50.0 Allergic urticaria (principal); T39.395A Adverse effect of other nonsteroidal anti-inflammatory drugs [NSAID], initial encounter; Z53.21 Procedure and treatment not carried out due to patient leaving prior to being seen by health care provider; Y92.89 Other specified places as the place of occurrence of the external cause

== ENCOUNTER 2022-09-29 05:21 | Inpatient (IN) | payer MEDICARE, MEDICAID ==
[2022-09-29] VITALS (13 sets, daily range): BP systolic 107–149; BP diastolic 34–62
[~2022-09-29] VITALS: Ht 167.6 cm; Wt 91.0 kg
[~2022-09-29 05:21] MED LIST changes: +CYCL-837 PO; -CYCL5TAB PO
[2022-09-29] MEDS ORDERED: methylPREDNISolone SOD SUCC 125 MG/2 ML VL ONE (05:25)
[2022-09-29] MEDS ORDERED: ETOMIDATE (2MG/ML) 20ML VIAL IV ONE ×2 (05:25→06:00)
[2022-09-29] MEDS ORDERED: PROPOFOL 100 ML IV ONE (05:26)
[2022-09-29] MEDS ORDERED: ROCURONIUM 10MG/ML 10ML VIAL IV ONE ×2 (05:26→06:00)
[2022-09-29] MEDS ORDERED: MIDAZOLAM HCL 5 MG/ML-1ML VIAL ONE (05:26)
[2022-09-29] MEDS: PROPOFOL 100 ML IV SCH ×2 (05:41→20:56)
[2022-09-29] MEDS ORDERED: MIDAZOLAM HCL 5 MG/ML-1ML VIAL IV ONE (06:00)
[2022-09-29] MEDS ORDERED: methylPREDNISolone SOD SUCC 125 MG/2 ML VL IV ONE (06:00)
[2022-09-29] MEDS ORDERED: FAMOTIDINE (10MG/ML) 2ML VL IV ONE (06:15)
[2022-09-29] MEDS ORDERED: TERBUTALINE SULFATE 1 MG/ML 1ML VIAL SC ONE (06:15)
[2022-09-29 07:02] LABS: Basophils # (auto) 0 10 ^3/uL (0-0.2); Eosinophils # (auto) 0.2 10 ^3/uL (0-0.8); Hemoglobin 12.6 g/dL (12.2-16.2); Lymphocytes # (auto) 1.7 10 ^3/uL (0.4-5.4); Nucleated Red Blood Cells % 0.1 %; White Blood Cell 5.3 10^3/uL (4.4-10.8)
[2022-09-29 07:05] LABS: Basophils % (auto) 0.9 % (0.0-2.0); Eosinophils % (auto) 3.8 % (0.0-7.0); Hematocrit 38.4 % (36.0-46.0); Lymphocytes % (auto) 32.8 % (10.0-50.0); Mean Corpuscular Hemoglobin 25.4 pg (28.0-32.0); Mean Corpuscular Hgb Conc. 32.8 g/dL (32.0-36.0); Mean Corpuscular Volume 77.3 fL (80.0-100.0); Monocytes # (auto) 0.4 10 ^3/uL (0-1.3); Monocytes % (auto) 6.7 % (0.0-12.0); Neutrophils % (auto) 55.8 % (37.0-80.0); Red Blood Cells 4.97 10^6/uL (4.0-5.20); Red Cell Distribution Width 16.2 % (11.8-14.3)
[2022-09-29 07:21] LABS: Potassium 3.3 mmol/L (3.5-5.1)
[2022-09-29 07:26] LABS: Urine Bacteria FEW /hpf (None Seen); Urine Blood Negative /uL (Negative); Urine Hyaline Cast FEW /lpf (0 - 2); Urine Mucus FEW (None Seen); Urine Specific Gravity 1.016 (1.001-1.035); Urine WBC 1 /hpf (0 - 5)
[2022-09-29 07:36] LABS: Albumin 3.4 g/dL (3.4-5.0); Bilirubin, Total 0.5 mg/dL (0.2-1.0); Calcium 9.5 mg/dL (8.5-10.1); Total Protein 7.4 g/dL (6.4-8.2)
[2022-09-29] MEDS: MAGNESIUM SULFATE 1GM/100ML 100 ML IV SCH ×2 (07:39→08:35)
[2022-09-29] MEDS ORDERED: POTASSIUM EFFERVESENT TAB 25 MEQ GT ONE (10:45)
[2022-09-29] MEDS ORDERED: ONDANSETRON HCL 4 MG/2 ML VIAL IV PRN (10:45)
[2022-09-29] MEDS: SODIUM CHLORIDE 0.9% 1,000 ML IV SCH ×4 (12:26→21:54)
[2022-09-29] MEDS: MIDAZOLAM DRIP 50 mg/50mL 50 ML IV SCH ×2 (13:13→22:09)
[2022-09-29] MEDS: methylPREDNISolone SOD SUCC 125 MG/2 ML VL IV SCH ×2 (15:08→21:55)
[2022-09-29 16:07] LABS: Creatinine, Urine 238 mg/dL (30.0-125.0); Sodium Urine 37 mmol/L (40-220)
[2022-09-30] VITALS (84 sets, daily range): BP systolic 111–174; BP diastolic 49–79
[2022-09-30] MEDS: PROPOFOL 100 ML IV SCH ×6 (03:37→22:26)
[2022-09-30 04:43] LABS: Basophils # (auto) 0.1 10 ^3/uL (0-0.2); Basophils % (auto) 0.5 % (0.0-2.0); Eosinophils # (auto) 0 10 ^3/uL (0-0.8); Hematocrit 40.1 % (36.0-46.0); Hemoglobin 13.3 g/dL (12.2-16.2); Lymphocytes # (auto) 1.5 10 ^3/uL (0.4-5.4); Lymphocytes % (auto) 9.4 % (10.0-50.0); Mean Corpuscular Hemoglobin 25.3 pg (28.0-32.0); Mean Corpuscular Volume 76.5 fL (80.0-100.0); Monocytes # (auto) 0.2 10 ^3/uL (0-1.3); Monocytes % (auto) 1.3 % (0.0-12.0); Neutrophils # (auto) 14.1 10 ^3/uL (1.6-8.6); Neutrophils % (auto) 88.8 % (37.0-80.0); Nucleated Red Blood Cells % 0.2 %; Red Blood Cells 5.25 10^6/uL (4.0-5.20); Red Cell Distribution Width 15.8 % (11.8-14.3); White Blood Cell 15.9 10^3/uL (4.4-10.8)
[2022-09-30 05:16] LABS: Albumin 2.9 g/dL (3.4-5.0); BUN/Creatinine Ratio 17.3; Calcium 9.3 mg/dL (8.5-10.1); Potassium 3.3 mmol/L (3.5-5.1)
[2022-09-30 05:19] LABS: Bilirubin, Total 0.5 mg/dL (0.2-1.0); Total Protein 7.7 g/dL (6.4-8.2)
[2022-09-30] MEDS: MIDAZOLAM DRIP 50 mg/50mL 50 ML IV SCH ×3 (05:36→17:17)
[2022-09-30] MEDS: methylPREDNISolone SOD SUCC 125 MG/2 ML VL IV SCH ×3 (05:37→21:50)
[2022-09-30] MEDS: SODIUM CHLORIDE 0.9% 1,000 ML IV SCH ×3 (06:29→21:51)
[2022-09-30] MEDS: PANTOPRAZOLE 40 MG/10 ML VIAL INJ IV SCH (10:33)
[2022-09-30] MEDS: ENOXAPARIN SOD 40 MG/0.4 ML SYRINGE SC SCH (10:33)
[2022-09-30] MEDS: POTASSIUM CHL 20MEQ/100ML 100 ML IV SCH ×3 (10:34→14:56)
[2022-10-01] VITALS (97 sets, daily range): BP systolic 93–167; BP diastolic 49–83
[2022-10-01] MEDS: MIDAZOLAM DRIP 50 mg/50mL 50 ML IV SCH ×4 (01:14→21:15)
[2022-10-01] MEDS: PROPOFOL 100 ML IV SCH ×2 (02:26→06:00)
[2022-10-01] MEDS: SODIUM CHLORIDE 0.9% 1,000 ML IV SCH ×2 (02:29→06:33)
[2022-10-01 04:17] LABS: Basophils # (auto) 0 10 ^3/uL (0-0.2); Basophils % (auto) 0.2 % (0.0-2.0); Eosinophils # (auto) 0 10 ^3/uL (0-0.8); Hematocrit 35.8 % (36.0-46.0); Hemoglobin 11.8 g/dL (12.2-16.2); Lymphocytes # (auto) 0.7 10 ^3/uL (0.4-5.4); Lymphocytes % (auto) 5.3 % (10.0-50.0); Mean Corpuscular Hemoglobin 25.2 pg (28.0-32.0); Mean Corpuscular Hgb Conc. 32.9 g/dL (32.0-36.0); Mean Corpuscular Volume 76.3 fL (80.0-100.0); Monocytes # (auto) 0.3 10 ^3/uL (0-1.3); Neutrophils # (auto) 11.6 10 ^3/uL (1.6-8.6); Neutrophils % (auto) 92.5 % (37.0-80.0); Nucleated Red Blood Cells % 0.1 %; Red Blood Cells 4.69 10^6/uL (4.0-5.20); White Blood Cell 12.6 10^3/uL (4.4-10.8)
[2022-10-01 04:34] LABS: Anion Gap 10 (5-15); Blood Urea Nitrogen 22 mg/dL (7-18); Calcium 8.3 mg/dL (8.5-10.1); Carbon Dioxide 18 mmol/L (21-32); Chloride 120 mmol/L (98-107); GFR African American 63 mL/min; GFR Non-African American 52 mL/min; Glucose 126 mg/dL (74-106); Magnesium 2.4 mg/dL (1.6-2.6); Potassium 3.8 mmol/L (3.5-5.1); Sodium 148 mmol/L (136-145)
[2022-10-01] MEDS: methylPREDNISolone SOD SUCC 125 MG/2 ML VL IV SCH ×3 (05:59→22:21)
[2022-10-01] MEDS: SOD CHL 0.45% 1,000 ML IV SCH (09:18)
[2022-10-01] MEDS: PANTOPRAZOLE 40 MG/10 ML VIAL INJ IV SCH (09:41)
[2022-10-01] MEDS: ENOXAPARIN SOD 40 MG/0.4 ML SYRINGE SC SCH (09:41)
[2022-10-02] VITALS (48 sets, daily range): BP systolic 125–176; BP diastolic 53–92
[2022-10-02] MEDS: MIDAZOLAM DRIP 50 mg/50mL 50 ML IV SCH ×2 (01:20→06:17)
[2022-10-02 04:01] LABS: Basophils # (auto) 0 10 ^3/uL (0-0.2); Eosinophils # (auto) 0 10 ^3/uL (0-0.8); Hemoglobin 12.5 g/dL (12.2-16.2); Mean Corpuscular Hemoglobin 25.1 pg (28.0-32.0); Monocytes # (auto) 0.3 10 ^3/uL (0-1.3); Nucleated Red Blood Cells % 0.1 %; White Blood Cell 11.3 10^3/uL (4.4-10.8)
[2022-10-02 04:03] LABS: Basophils % (auto) 0.1 % (0.0-2.0); Hematocrit 38.3 % (36.0-46.0); Lymphocytes # (auto) 0.6 10 ^3/uL (0.4-5.4); Lymphocytes % (auto) 5.2 % (10.0-50.0); Mean Corpuscular Hgb Conc. 32.6 g/dL (32.0-36.0); Mean Corpuscular Volume 77.1 fL (80.0-100.0); Monocytes % (auto) 2.9 % (0.0-12.0); Neutrophils # (auto) 10.3 10 ^3/uL (1.6-8.6); Neutrophils % (auto) 91.8 % (37.0-80.0); Red Blood Cells 4.97 10^6/uL (4.0-5.20); Red Cell Distribution Width 16.8 % (11.8-14.3)
[2022-10-02 04:18] LABS: BUN/Creatinine Ratio 24.8; Calcium 8.9 mg/dL (8.5-10.1); Magnesium 2.6 mg/dL (1.6-2.6); Potassium 3.5 mmol/L (3.5-5.1)
[2022-10-02] MEDS: SOD CHL 0.45% 1,000 ML IV SCH (05:30)
[2022-10-02] MEDS: methylPREDNISolone SOD SUCC 125 MG/2 ML VL IV SCH ×3 (05:49→22:43)
[2022-10-02] MEDS: PROPOFOL 100 ML IV SCH (05:49)
[2022-10-02] MEDS: ENOXAPARIN SOD 40 MG/0.4 ML SYRINGE SC SCH (09:24)
[2022-10-02] MEDS: PANTOPRAZOLE 40 MG/10 ML VIAL INJ IV SCH (09:24)
[2022-10-02] MEDS: hydrALAZINE HCL 20 MG/ML VL IV PRN (11:05)
[2022-10-03] VITALS (56 sets, daily range): BP systolic 140–179; BP diastolic 60–138
[2022-10-03] MEDS: SOD CHL 0.45% 1,000 ML IV SCH ×2 (00:43→20:41)
[2022-10-03] MEDS: MIDAZOLAM DRIP 50 mg/50mL 50 ML IV SCH ×4 (03:42→23:26)
[2022-10-03 04:17] LABS: Basophils # (auto) 0 10 ^3/uL (0-0.2); Basophils % (auto) 0.2 % (0.0-2.0); Eosinophils # (auto) 0 10 ^3/uL (0-0.8); Hemoglobin 13.6 g/dL (12.2-16.2); Lymphocytes # (auto) 0.6 10 ^3/uL (0.4-5.4); Lymphocytes % (auto) 7.5 % (10.0-50.0); Mean Corpuscular Volume 77.8 fL (80.0-100.0); Monocytes # (auto) 0.3 10 ^3/uL (0-1.3); Neutrophils # (auto) 7.3 10 ^3/uL (1.6-8.6); Nucleated Red Blood Cells % 0.1 %; White Blood Cell 8.2 10^3/uL (4.4-10.8)
[2022-10-03 04:20] LABS: Hematocrit 41.6 % (36.0-46.0); Mean Corpuscular Hemoglobin 25.4 pg (28.0-32.0); Mean Corpuscular Hgb Conc. 32.6 g/dL (32.0-36.0); Monocytes % (auto) 3.7 % (0.0-12.0); Neutrophils % (auto) 88.6 % (37.0-80.0); Red Blood Cells 5.34 10^6/uL (4.0-5.20); Red Cell Distribution Width 16.3 % (11.8-14.3)
[2022-10-03] MEDS: methylPREDNISolone SOD SUCC 125 MG/2 ML VL IV SCH ×3 (05:44→21:37)
[2022-10-03] MEDS: PROPOFOL 100 ML IV SCH (05:47)
[2022-10-03 09:35] LABS: Albumin 2.6 g/dL (3.4-5.0); BUN/Creatinine Ratio 35.2; Bilirubin, Total 0.5 mg/dL (0.2-1.0); Magnesium 2.6 mg/dL (1.6-2.6); Potassium 3.4 mmol/L (3.5-5.1); Total Protein 6.7 g/dL (6.4-8.2)
[2022-10-03] MEDS: PANTOPRAZOLE 40 MG/10 ML VIAL INJ IV SCH (10:47)
[2022-10-03] MEDS: ENOXAPARIN SOD 40 MG/0.4 ML SYRINGE SC SCH (10:48)
[2022-10-03] MEDS: hydrALAZINE HCL 20 MG/ML VL IV PRN ×2 (17:36→23:33)
[2022-10-04] VITALS (51 sets, daily range): BP systolic 112–181; BP diastolic 41–115
[2022-10-04] MEDS: MIDAZOLAM DRIP 50 mg/50mL 50 ML IV SCH ×5 (02:04→21:40)
[2022-10-04] MEDS: PROPOFOL 100 ML IV SCH ×2 (02:44→22:54)
[2022-10-04] MEDS: ALBUTEROL SULF 2.5 MG/0.5ML(0.5%) NEB SOLN NEB PRN (02:48)
[2022-10-04] MEDS: IPRATROPIUM BROM 0.5 MG/2.5ML INH SOL NEB PRN (02:48)
[2022-10-04 05:04] LABS: BUN/Creatinine Ratio 34.8; Calcium 8.5 mg/dL (8.5-10.1); Magnesium 2.4 mg/dL (1.6-2.6); Potassium 3.2 mmol/L (3.5-5.1)
[2022-10-04 05:12] LABS: Basophils # (auto) 0 10 ^3/uL (0-0.2); Eosinophils # (auto) 0 10 ^3/uL (0-0.8); Lymphocytes # (auto) 0.7 10 ^3/uL (0.4-5.4); Monocytes # (auto) 1.1 10 ^3/uL (0-1.3); Neutrophils # (auto) 9.6 10 ^3/uL (1.6-8.6); Nucleated Red Blood Cells % 0.1 %; White Blood Cell 11.5 10^3/uL (4.4-10.8)
[2022-10-04 05:18] LABS: Basophils % (auto) 0.3 % (0.0-2.0); Eosinophils % (auto) 0.2 % (0.0-7.0); Hematocrit 38.7 % (36.0-46.0); Hemoglobin 12.7 g/dL (12.2-16.2); Lymphocytes % (auto) 5.7 % (10.0-50.0); Mean Corpuscular Hemoglobin 25.1 pg (28.0-32.0); Mean Corpuscular Hgb Conc. 32.7 g/dL (32.0-36.0); Mean Corpuscular Volume 76.6 fL (80.0-100.0); Monocytes % (auto) 9.9 % (0.0-12.0); Neutrophils % (auto) 83.9 % (37.0-80.0); Red Blood Cells 5.05 10^6/uL (4.0-5.20); Red Cell Distribution Width 16.2 % (11.8-14.3)
[2022-10-04] MEDS: methylPREDNISolone SOD SUCC 125 MG/2 ML VL IV SCH ×2 (06:01→21:39)
[2022-10-04] MEDS: PANTOPRAZOLE 40 MG/10 ML VIAL INJ IV SCH (08:59)
[2022-10-04] MEDS: ENOXAPARIN SOD 40 MG/0.4 ML SYRINGE SC SCH (08:59)
[2022-10-04] MEDS ORDERED: cefTRIAXone 1GM/50ML D5W 50 ML IV ONE (10:00)
[2022-10-04] MEDS ORDERED: POTASSIUM CHL 20MEQ/100ML 100 ML IV ONE (10:00)
[2022-10-04] MEDS: AZITHROMYCIN 500MG/ 250ML 250 ML IV SCH (10:05)
[2022-10-04] MEDS: hydrALAZINE HCL 20 MG/ML VL IV PRN (11:08)
[2022-10-04] MEDS: SOD CHL 0.45% 1,000 ML IV SCH (17:00)
[2022-10-05] VITALS (82 sets, daily range): BP systolic 124–183; BP diastolic 45–89
[2022-10-05] MEDS: SOD CHL 0.45% 1,000 ML IV SCH (02:30)
[2022-10-05 04:29] LABS: Basophils # (auto) 0 10 ^3/uL (0-0.2); Basophils % (auto) 0.1 % (0.0-2.0); Eosinophils # (auto) 0 10 ^3/uL (0-0.8); Eosinophils % (auto) 0.1 % (0.0-7.0); Lymphocytes # (auto) 0.5 10 ^3/uL (0.4-5.4); Mean Corpuscular Volume 78.3 fL (80.0-100.0)
[2022-10-05 04:34] LABS: Hematocrit 41.8 % (36.0-46.0); Hemoglobin 13.5 g/dL (12.2-16.2); Lymphocytes % (auto) 3.8 % (10.0-50.0); Mean Corpuscular Hemoglobin 25.3 pg (28.0-32.0); Mean Corpuscular Hgb Conc. 32.4 g/dL (32.0-36.0); Monocytes # (auto) 0.6 10 ^3/uL (0-1.3); Monocytes % (auto) 5.3 % (0.0-12.0); Neutrophils # (auto) 10.8 10 ^3/uL (1.6-8.6); Neutrophils % (auto) 90.7 % (37.0-80.0); Nucleated Red Blood Cells % 0.1 %; Red Blood Cells 5.34 10^6/uL (4.0-5.20); Red Cell Distribution Width 16.3 % (11.8-14.3); White Blood Cell 11.9 10^3/uL (4.4-10.8)
[2022-10-05 04:37] LABS: BUN/Creatinine Ratio 33.8; Calcium 8.7 mg/dL (8.5-10.1); Magnesium 2.7 mg/dL (1.6-2.6); Potassium 3.6 mmol/L (3.5-5.1)
[2022-10-05] MEDS: methylPREDNISolone SOD SUCC 125 MG/2 ML VL IV SCH ×3 (06:38→22:48)
[2022-10-05] MEDS: cefTRIAXone 1GM/50ML D5W 50 ML IV SCH (08:57)
[2022-10-05] MEDS: PROPOFOL 100 ML IV SCH (09:02)
[2022-10-05] MEDS: PANTOPRAZOLE 40 MG/10 ML VIAL INJ IV SCH (10:10)
[2022-10-05] MEDS: ENOXAPARIN SOD 40 MG/0.4 ML SYRINGE SC SCH (10:10)
[2022-10-05] MEDS: AZITHROMYCIN 500MG/ 250ML 250 ML IV SCH (10:11)
[2022-10-05] MEDS: hydrALAZINE HCL 20 MG/ML VL IV PRN (22:49)
[2022-10-06] VITALS (20 sets, daily range): BP systolic 109–149; BP diastolic 43–96
[2022-10-06] MEDS: ALBUTEROL SULF 2.5 MG/0.5ML(0.5%) NEB SOLN NEB PRN ×2 (00:28→06:32)
[2022-10-06] MEDS: IPRATROPIUM BROM 0.5 MG/2.5ML INH SOL NEB PRN ×2 (00:28→06:32)
[2022-10-06] MEDS: SOD CHL 0.45% 1,000 ML IV SCH (03:16)
[2022-10-06 04:22] LABS: Basophils # (auto) 0 10 ^3/uL (0-0.2); Hemoglobin 12.5 g/dL (12.2-16.2); Lymphocytes # (auto) 0.4 10 ^3/uL (0.4-5.4)
[2022-10-06 04:26] LABS: Basophils % (auto) 0.3 % (0.0-2.0); Eosinophils # (auto) 0.1 10 ^3/uL (0-0.8); Eosinophils % (auto) 0.7 % (0.0-7.0); Lymphocytes % (auto) 3.2 % (10.0-50.0); Mean Corpuscular Hemoglobin 25.2 pg (28.0-32.0); Mean Corpuscular Volume 78.8 fL (80.0-100.0); Monocytes # (auto) 0.6 10 ^3/uL (0-1.3); Monocytes % (auto) 5.1 % (0.0-12.0); Neutrophils # (auto) 10.3 10 ^3/uL (1.6-8.6); Neutrophils % (auto) 90.7 % (37.0-80.0); Nucleated Red Blood Cells % 0.2 %; Red Blood Cells 4.95 10^6/uL (4.0-5.20); Red Cell Distribution Width 16.4 % (11.8-14.3); White Blood Cell 11.4 10^3/uL (4.4-10.8)
[2022-10-06 04:44] LABS: BUN/Creatinine Ratio 45.3; Calcium 8.7 mg/dL (8.5-10.1); Potassium 3.8 mmol/L (3.5-5.1)
[2022-10-06] MEDS: methylPREDNISolone SOD SUCC 125 MG/2 ML VL IV SCH ×3 (05:31→22:40)
[2022-10-06] MEDS: AZITHROMYCIN 500MG/ 250ML 250 ML IV SCH (09:48)
[2022-10-06] MEDS: cefTRIAXone 1GM/50ML D5W 50 ML IV SCH (09:49)
[2022-10-06] MEDS: PANTOPRAZOLE 40 MG/10 ML VIAL INJ IV SCH (09:49)
[2022-10-06] MEDS: ENOXAPARIN SOD 40 MG/0.4 ML SYRINGE SC SCH (09:49)
[2022-10-06] MEDS: MIDAZOLAM DRIP 50 mg/50mL 50 ML IV SCH (13:00)
[2022-10-07] MEDS: SOD CHL 0.45% 1,000 ML IV SCH (05:00)
[2022-10-07] MEDS: PROPOFOL 100 ML IV SCH (06:00)
[2022-10-07] MEDS: methylPREDNISolone SOD SUCC 125 MG/2 ML VL IV SCH ×3 (06:39→22:43)
[2022-10-07 09:00] VITALS: BP 144/64
[2022-10-07] MEDS: ENOXAPARIN SOD 40 MG/0.4 ML SYRINGE SC SCH (09:25)
[2022-10-07] MEDS: PANTOPRAZOLE 40 MG/10 ML VIAL INJ IV SCH (09:25)
[2022-10-07] MEDS: cefTRIAXone 1GM/50ML D5W 50 ML IV SCH (09:26)
[2022-10-07] MEDS: AZITHROMYCIN 500MG/ 250ML 250 ML IV SCH (09:26)
[2022-10-07 12:48] VITALS: BP 144/68
[2022-10-07 16:39] VITALS: BP 140/63
[2022-10-07 22:00] VITALS: BP 124/54
[2022-10-08 00:19] VITALS: BP 124/54
[2022-10-08] MEDS: SOD CHL 0.45% 1,000 ML IV SCH (02:46)
[2022-10-08 05:00] VITALS: BP 133/64
[2022-10-08] MEDS: methylPREDNISolone SOD SUCC 125 MG/2 ML VL IV SCH ×3 (05:49→21:14)
[2022-10-08 09:04] VITALS: BP 145/56
[2022-10-08] MEDS: ENOXAPARIN SOD 40 MG/0.4 ML SYRINGE SC SCH (10:05)
[2022-10-08] MEDS: cefTRIAXone 1GM/50ML D5W 50 ML IV SCH (10:06)
[2022-10-08] MEDS: PANTOPRAZOLE 40 MG/10 ML VIAL INJ IV SCH (10:06)
[2022-10-08] MEDS: AZITHROMYCIN 500MG/ 250ML 250 ML IV SCH (10:06)
[2022-10-08 12:13] VITALS: BP 150/65
[2022-10-08 16:44] VITALS: BP 153/68
[2022-10-08 22:00] VITALS: BP 146/63
[2022-10-09 05:00] VITALS: BP 151/77
[2022-10-09] MEDS: methylPREDNISolone SOD SUCC 125 MG/2 ML VL IV SCH ×2 (05:38→14:22)
[2022-10-09 06:46] LABS: Hematocrit 38.3 % (36.0-46.0)
[2022-10-09 06:48] LABS: Hemoglobin 12.6 g/dL (12.2-16.2); Mean Corpuscular Hemoglobin 25.4 pg (28.0-32.0); Mean Corpuscular Hgb Conc. 32.9 g/dL (32.0-36.0); Mean Corpuscular Volume 77.3 fL (80.0-100.0); Red Blood Cells 4.95 10^6/uL (4.0-5.20); Red Cell Distribution Width 15.6 % (11.8-14.3); White Blood Cell 5.6 10^3/uL (4.4-10.8)
[2022-10-09 06:57] LABS: Calcium 8.6 mg/dL (8.5-10.1); Potassium 4.4 mmol/L (3.5-5.1)
[2022-10-09 07:04] LABS: Albumin 2.2 g/dL (3.4-5.0); BUN/Creatinine Ratio 38.5; Bilirubin, Total 0.5 mg/dL (0.2-1.0); Total Protein 5.4 g/dL (6.4-8.2)
[2022-10-09 07:14] LABS: Basophils % (manual) 0 (0.0-2.0); Blast Cells 0; Eosinophils % (manual) 0 (0-7); Promyelocytes % 0; Reactive Lymphocytes 0
[2022-10-09] MEDS: cefTRIAXone 1GM/50ML D5W 50 ML IV SCH (08:27)
[2022-10-09 08:39] VITALS: BP 118/67
[2022-10-09 08:55] LABS: Band Neutrophils % (manual) 1; Lymphocytes % (manual) 13 (10.0-50.0); Metamyelocytes % 1; Monocytes % (manual) 9 (0-12); Myelocytes % 1
[2022-10-09] MEDS: AZITHROMYCIN 500MG/ 250ML 250 ML IV SCH (09:30)
[2022-10-09] MEDS: ENOXAPARIN SOD 40 MG/0.4 ML SYRINGE SC SCH (09:30)
[2022-10-09] MEDS: PANTOPRAZOLE 40 MG/10 ML VIAL INJ IV SCH (09:30)
[2022-10-09] MEDS ORDERED: LEVO500T31 PO (11:25)
[2022-10-09] MEDS ORDERED: METH4PAK PO (11:25)
[2022-10-09 13:00] VITALS: BP 138/60
[2022-10-09 16:37] VITALS: BP 138/60
== END 2022-10-09 16:55 | disposition home or self-care (01) | DRG 207 ==
LOC: EDBD 05:21 → ER 05:21 → TELE 10:44 → ICU WEST 21:11 → TELE-EAST 10-06 17:45
PROVIDERS: ADMIT Nurse Practitioner Family; ATTEND Internal Medicine Geriatric Medicine
PROC: 5A1955Z Respiratory Ventilation, Greater than 96 Consecutive Hours (ICD-10-PCS; principal; 2022-09-29)
PROC: 0BH17EZ Insertion of Endotracheal Airway into Trachea, Via Natural or Artificial Opening (ICD-10-PCS; 2022-09-29)
PROC: 05HA33Z Insertion of Infusion Device into Left Brachial Vein, Percutaneous Approach (ICD-10-PCS; 2022-10-05)
PROC: B54NZZA Ultrasonography of Left Upper Extremity Veins, Guidance (ICD-10-PCS; 2022-10-05)
PROC: 5A1935Z Respiratory Ventilation, Less than 24 Consecutive Hours (ICD-10-PCS; 2022-10-06)
DX: J96.01 Acute respiratory failure with hypoxia (principal); J98.11 Atelectasis; N17.9 Acute kidney failure, unspecified; I13.0 Hypertensive heart and chronic kidney disease with heart failure and stage 1 through stage 4 chronic kidney disease, or unspecified chronic kidney disease; R57.9 Shock, unspecified; E87.0 Hyperosmolality and hypernatremia; E87.6 Hypokalemia; E78.5 Hyperlipidemia, unspecified; E66.01 Morbid (severe) obesity due to excess calories; K21.9 Gastro-esophageal reflux disease without esophagitis; R00.1 Bradycardia, unspecified; F32.A Depression, unspecified; I50.9 Heart failure, unspecified; G47.33 Obstructive sleep apnea (adult) (pediatric); N18.9 Chronic kidney disease, unspecified; Z68.33 Body mass index [BMI] 33.0-33.9, adult; Z79.82 Long term (current) use of aspirin; Z79.899 Other long term (current) drug therapy; Z80.6 Family history of leukemia; Z82.0 Family history of epilepsy and other diseases of the nervous system; Z82.3 Family history of stroke; Z82.49 Family history of ischemic heart disease and other diseases of the circulatory system; Z86.73 Personal history of transient ischemic attack (TIA), and cerebral infarction without residual deficits; Z90.710 Acquired absence of both cervix and uterus
CPT/HCPCS: 31500; 36415; 36600; 70450; 71045; 80048; 80053; 81001; 82570; 82805; 83735; 83880; 84100; 84300; 84484; 85007; 85025; 85027; 87070; 87077; 87081; 87186; 87205; 87426; 92610; 93306; 94002; 94003; 94640; 96372; 96374; 96375; 97163; 99291; C9113; G0378; J0696; J2250; J2704; J3480; J3490; J7060

== ENCOUNTER 2022-11-18 16:20 | Inpatient (IN) | payer MEDICARE, MEDICAID ==
[~2022-11-18] VITALS: Ht 152.4 cm; Wt 86.5 kg
[~2022-11-18 16:20] MED LIST changes: +LEVO500T31 PO; +METH4PAK PO
[2022-11-18 18:01] LABS: Hematocrit 40.6 % (36.0-46.0); Hemoglobin 13.1 g/dL (12.2-16.2); Mean Corpuscular Hemoglobin 26.4 pg (28.0-32.0); Mean Corpuscular Hgb Conc. 32.1 g/dL (32.0-36.0); Mean Corpuscular Volume 82.3 fL (80.0-100.0); Red Blood Cells 4.94 10^6/uL (4.0-5.20); White Blood Cell 5.6 10^3/uL (4.4-10.8)
[2022-11-18 18:15] LABS: Albumin 3.6 g/dL (3.4-5.0); Calcium 9.3 mg/dL (8.5-10.1); Magnesium 1.8 mg/dL (1.6-2.6); Potassium 4.3 mmol/L (3.5-5.1)
[2022-11-18 18:18] LABS: BUN/Creatinine Ratio 22.9; Bilirubin, Total 0.4 mg/dL (0.2-1.0); Total Protein 7.2 g/dL (6.4-8.2)
[2022-11-18 18:21] LABS: Basophils % (manual) 0 (0.0-2.0); Blast Cells 0; Metamyelocytes % 0; Myelocytes % 0; Promyelocytes % 0
[2022-11-18] MEDS ORDERED: SODIUM CHLORIDE 0.9% 1,000 ML IV ONE (18:45)
[2022-11-18 19:01] LABS: Band Neutrophils % (manual) 3; Eosinophils % (manual) 2 (0-7); Lymphocytes % (manual) 20 (10.0-50.0); Monocytes % (manual) 4 (0-12); Reactive Lymphocytes 1
[2022-11-18 19:07] LABS: Urine Bacteria NONE SEEN /hpf (None Seen); Urine Blood Negative /uL (Negative); Urine Hyaline Cast FEW /lpf (0 - 2); Urine WBC 1 /hpf (0 - 5)
[2022-11-18] MEDS ORDERED: DexAMETHasone SOD PHOS 10MG/1ML VIAL INJ IV ONE (19:15)
[2022-11-18] MEDS ORDERED: IOHEXOL 350 MG/ML 100ML IJ ONE (20:12)
[2022-11-18] MEDS ORDERED: CEFEPIME 1GM/ 50ML 50 ML IV ONE (22:00)
[2022-11-18] MEDS ORDERED: VANCOMYCIN 1GM/250ML 250 ML IV ONE (22:00)
[2022-11-18] MEDS ORDERED: ONDANSETRON HCL 4 MG/2 ML VIAL IV PRN (22:15)
[2022-11-18] MEDS ORDERED: MORPHINE SULFATE INJ 2 MG/ml SYRG IV PRN (22:15)
[2022-11-18] MEDS ORDERED: ACETAMINOPHEN 325 MG TAB PO PRN (22:15)
[2022-11-18] MEDS ORDERED: SODIUM CHLORIDE 0.9% 1,000 ML IV SCH (22:15)
[2022-11-18] MEDS ORDERED: DOCUSATE SOD 100 MG CAP PO PRN (22:15)
[2022-11-18] MEDS ORDERED: VANCOMYCIN PER PHARMACY 0 MG IV SCH (22:15)
[2022-11-18] MEDS ORDERED: MAALOX PLUS or MAALOX 30 ML PO PRN (22:15)
[2022-11-18] MEDS ORDERED: HYDROcodone-ACET 5/325MG TAB PO PRN (22:15)
[2022-11-19 05:17] LABS: Basophils # (auto) 0 10 ^3/uL (0-0.2); Basophils % (auto) 0.4 % (0.0-2.0); Eosinophils # (auto) 0 10 ^3/uL (0-0.8); Eosinophils % (auto) 0.1 % (0.0-7.0); Hematocrit 36.2 % (36.0-46.0); Hemoglobin 11.8 g/dL (12.2-16.2); Lymphocytes # (auto) 0.8 10 ^3/uL (0.4-5.4); Lymphocytes % (auto) 17.4 % (10.0-50.0); Mean Corpuscular Hemoglobin 26.2 pg (28.0-32.0); Mean Corpuscular Hgb Conc. 32.7 g/dL (32.0-36.0); Mean Corpuscular Volume 79.9 fL (80.0-100.0); Monocytes # (auto) 0.2 10 ^3/uL (0-1.3); Monocytes % (auto) 3.2 % (0.0-12.0); Neutrophils # (auto) 3.7 10 ^3/uL (1.6-8.6); Neutrophils % (auto) 78.9 % (37.0-80.0); Nucleated Red Blood Cells % 0.1 %; Red Blood Cells 4.53 10^6/uL (4.0-5.20); Red Cell Distribution Width 19.2 % (11.8-14.3); White Blood Cell 4.7 10^3/uL (4.4-10.8)
[2022-11-19 05:36] LABS: Potassium 5.1 mmol/L (3.5-5.1)
[2022-11-19] MEDS ORDERED: CEFEPIME 1GM/ 50ML 50 ML IV SCH (06:00)
[2022-11-19 09:57] VITALS: BP 131/71
[2022-11-19] MEDS ORDERED: cefTRIAXone 1GM/50ML D5W 50 ML IV ONE (10:15)
[2022-11-19] MEDS ORDERED: methylPREDNISolone SOD SUCC 125 MG/2 ML VL IV ONE (10:15)
[2022-11-19] MEDS ORDERED: AZITHROMYCIN 250 MG TAB PO ONE (10:15)
[2022-11-19] MEDS: IPRATROPIUM BROM 0.5 MG/2.5ML INH SOL NEB SCH ×2 (12:10→18:15)
[2022-11-19] MEDS: ALBUTEROL SULF 2.5 MG/0.5ML(0.5%) NEB SOLN NEB SCH ×2 (12:10→18:15)
[2022-11-19 13:00] VITALS: BP 132/64
[2022-11-19] MEDS ORDERED: OXY5T PO (14:42)
[2022-11-19] MEDS ORDERED: ASCO500T11 PO (14:42)
[2022-11-19] MEDS ORDERED: PANT1INJ3 PO (14:42)
[2022-11-19] MEDS ORDERED: CHOL20007 PO (14:42)
[2022-11-19] MEDS ORDERED: FURO40TA4 PO (14:42)
[2022-11-19] MEDS ORDERED: VANCOMYCIN 1GM/250ML 250 ML IV SCH (16:00)
[2022-11-19 17:00] VITALS: BP 133/59
[2022-11-19 18:50] VITALS: BP 146/80
[2022-11-19 22:00] VITALS: BP 130/55
[2022-11-19] MEDS: methylPREDNISolone SOD SUCC 125 MG/2 ML VL IV SCH (22:16)
[2022-11-20 05:00] VITALS: BP 137/57
[2022-11-20] MEDS: IPRATROPIUM BROM 0.5 MG/2.5ML INH SOL NEB SCH ×3 (06:00→15:54)
[2022-11-20] MEDS: ALBUTEROL SULF 2.5 MG/0.5ML(0.5%) NEB SOLN NEB SCH ×3 (06:00→15:54)
[2022-11-20 06:25] LABS: Basophils # (auto) 0 10 ^3/uL (0-0.2); Eosinophils # (auto) 0 10 ^3/uL (0-0.8); Mean Corpuscular Hemoglobin 26.1 pg (28.0-32.0); Monocytes # (auto) 0.3 10 ^3/uL (0-1.3)
[2022-11-20 06:27] LABS: Basophils % (auto) 0.2 % (0.0-2.0); Hematocrit 36.3 % (36.0-46.0); Hemoglobin 12.1 g/dL (12.2-16.2); Lymphocytes # (auto) 1.2 10 ^3/uL (0.4-5.4); Mean Corpuscular Hgb Conc. 33.3 g/dL (32.0-36.0); Mean Corpuscular Volume 78.3 fL (80.0-100.0); Monocytes % (auto) 3.7 % (0.0-12.0); Neutrophils # (auto) 5.5 10 ^3/uL (1.6-8.6); Neutrophils % (auto) 79.1 % (37.0-80.0); Nucleated Red Blood Cells % 0.2 %; Red Blood Cells 4.63 10^6/uL (4.0-5.20); Red Cell Distribution Width 19.1 % (11.8-14.3); White Blood Cell 6.9 10^3/uL (4.4-10.8)
[2022-11-20 07:41] LABS: Potassium 4.3 mmol/L (3.5-5.1)
[2022-11-20 08:01] LABS: Albumin 3.2 g/dL (3.4-5.0); BUN/Creatinine Ratio 24.7; Bilirubin, Total 0.3 mg/dL (0.2-1.0); Calcium 9.8 mg/dL (8.5-10.1); Magnesium 1.9 mg/dL (1.6-2.6); Total Protein 6.6 g/dL (6.4-8.2)
[2022-11-20] MEDS: methylPREDNISolone SOD SUCC 125 MG/2 ML VL IV SCH (08:38)
[2022-11-20 09:00] VITALS: BP 119/44
[2022-11-20] MEDS ORDERED: cefTRIAXone 1GM/50ML D5W 50 ML IV SCH (09:00)
[2022-11-20] MEDS ORDERED: ENOXAPARIN SOD 40 MG/0.4 ML SYRINGE SC SCH (10:00)
[2022-11-20] MEDS ORDERED: AZITHROMYCIN 250 MG TAB PO SCH (10:00)
[2022-11-20] MEDS ORDERED: PANTOPRAZOLE 40 MG TAB PO SCH (10:00)
[2022-11-20] MEDS ORDERED: AZIT250T9 PO (12:10)
[2022-11-20] MEDS ORDERED: CEFD300C2 PO (12:10)
[2022-11-20] MEDS ORDERED: PRED20TA2 PO (12:10)
[2022-11-20] MEDS ORDERED: PANT40T PO (12:10)
[2022-11-20] MEDS ORDERED: ALBUAER3 IN (12:10)
[2022-11-20 13:00] VITALS: BP 130/58
== END 2022-11-20 16:01 | disposition home or self-care (01) | DRG 193 ==
LOC: ER 16:25 → OVERFLOW 22:17 → CENTRAL 11-19 12:43
PROVIDERS: ADMIT Hospitalist; ATTEND Internal Medicine
DX: J18.9 Pneumonia, unspecified organism (principal); N17.0 Acute kidney failure with tubular necrosis; J44.1 Chronic obstructive pulmonary disease with (acute) exacerbation; J44.0 Chronic obstructive pulmonary disease with (acute) lower respiratory infection; I12.9 Hypertensive chronic kidney disease with stage 1 through stage 4 chronic kidney disease, or unspecified chronic kidney disease; N18.9 Chronic kidney disease, unspecified; Z20.822 Contact with and (suspected) exposure to COVID-19; E66.01 Morbid (severe) obesity due to excess calories; E78.5 Hyperlipidemia, unspecified; Z68.37 Body mass index [BMI] 37.0-37.9, adult; Z80.6 Family history of leukemia; Z82.0 Family history of epilepsy and other diseases of the nervous system; Z82.3 Family history of stroke; Z82.49 Family history of ischemic heart disease and other diseases of the circulatory system; Z86.73 Personal history of transient ischemic attack (TIA), and cerebral infarction without residual deficits; Z90.710 Acquired absence of both cervix and uterus
CPT/HCPCS: 36415; 71046; 71250; 80048; 80053; 81001; 83036; 83735; 83880; 84443; 84484; 85007; 85025; 85027; 85379; 87045; 87081; 87426; 87427; 87493; 87804; 93005; 93970; 94640; 96361; 96374; G0378; J0696; J1100

== ENCOUNTER 2022-12-08 15:21 | Emergency (ER) | payer MEDICARE, MEDICAID ==
[~2022-12-08] VITALS: Ht 152.4 cm; Wt 75.0 kg
[~2022-12-08 15:21] MED LIST changes: +ALBUAER3 IN; +ASCO500T11 PO; -ATOR20TA50 PO; +AZIT250T9 PO; +CEFD300C2 PO; +CHOL20007 PO; -CYCL-837 PO; -DONE10TA5 PO; -FLUO20CA19 PO; +FURO40TA4 PO; -LEVO500T31 PO; -METH4PAK PO; -NAP500T PO; -NORT25CA PO; -OXY10CRT PO; +OXY5T PO; +PANT40T PO; -PANT40TA2 PO; +PRED20TA2 PO; -ZOLP10TA PO
[2022-12-08 16:02] LABS: Basophils # (auto) 0 10 ^3/uL (0-0.2); Eosinophils # (auto) 0.1 10 ^3/uL (0-0.8); Lymphocytes # (auto) 0.8 10 ^3/uL (0.4-5.4)
[2022-12-08 16:04] LABS: Monocytes # (auto) 0.4 10 ^3/uL (0-1.3)
[2022-12-08 16:17] LABS: Neutrophils # (auto) 0.6 10 ^3/uL (1.6-8.6); Red Cell Distribution Width 19.6 % (11.8-14.3)
[2022-12-08 16:18] LABS: Basophils % (auto) 0.7 % (0.0-2.0); Eosinophils % (auto) 4.9 % (0.0-7.0); Hematocrit 39.9 % (36.0-46.0); Hemoglobin 12.7 g/dL (12.2-16.2); Mean Corpuscular Hgb Conc. 31.8 g/dL (32.0-36.0); Mean Corpuscular Volume 81.6 fL (80.0-100.0); Neutrophils % (auto) 30.5 % (37.0-80.0); Nucleated Red Blood Cells % 0.7 %; Red Blood Cells 4.88 10^6/uL (4.0-5.20)
[2022-12-08 16:20] LABS: Alanine Aminotransferase 24 U/L (13-56); Albumin 3.1 g/dL (3.4-5.0); Anion Gap 10 (5-15); Aspartate Aminotransferase 24 U/L (15-37); BUN/Creatinine Ratio 13.8; Blood Urea Nitrogen 11 mg/dL (7-18); Calcium 8.7 mg/dL (8.5-10.1); Carbon Dioxide 27 mmol/L (21-32); Chloride 105 mmol/L (98-107); GFR African American 91 mL/min; GFR Non-African American 75 mL/min; Glucose 105 mg/dL (74-106); Potassium 3.6 mmol/L (3.5-5.1); Sodium 142 mmol/L (136-145)
[2022-12-08 16:21] LABS: Monocytes % (auto) 21.9 % (0.0-12.0)
[2022-12-08 16:23] LABS: Alkaline Phosphatase 66 U/L (45-117); Bilirubin, Total 0.5 mg/dL (0.2-1.0); Total Protein 6.4 g/dL (6.4-8.2)
[2022-12-08 16:24] LABS: White Blood Cell 1.9 10^3/uL (4.4-10.8)
[2022-12-08 17:25] LABS: Urine WBC None Seen /hpf (0 - 5)
[2022-12-08] MEDS ORDERED: methylPREDNISolone SOD SUCC 125 MG/2 ML VL IV ONE (17:30)
[2022-12-08 17:32] LABS: Urine Bacteria NONE SEEN /hpf (None Seen); Urine Blood Negative /uL (Negative); Urine Specific Gravity 1.014 (1.001-1.035)
[2022-12-08 18:45] VITALS: BP 140/64
[2022-12-08] MEDS ORDERED: methylPREDNISolone SOD SUCC 125 MG/2 ML VL IM ONE (18:45)
== END 2022-12-08 19:14 | disposition home or self-care (01) ==
LOC: EDBD 15:21 → ER 15:24
DX: U07.1 COVID-19 (principal); R42 Dizziness and giddiness; I12.9 Hypertensive chronic kidney disease with stage 1 through stage 4 chronic kidney disease, or unspecified chronic kidney disease; N18.2 Chronic kidney disease, stage 2 (mild); K21.9 Gastro-esophageal reflux disease without esophagitis; E78.5 Hyperlipidemia, unspecified; Z86.73 Personal history of transient ischemic attack (TIA), and cerebral infarction without residual deficits; Z79.82 Long term (current) use of aspirin; Z79.899 Other long term (current) drug therapy; Z79.2 Long term (current) use of antibiotics
CPT/HCPCS: 36415; 70450; 71045; 80053; 81001; 84484; 85025; 87426; 93005; 96372; 99285; J2930

== ENCOUNTER 2023-04-28 17:52 | Emergency (ER) | payer MEDICARE, MEDICAID ==
[~2023-04-28] VITALS: Ht 152.4 cm; Wt 79.3 kg
[~2023-04-28 17:52] MED LIST changes: +AZIT-43 PO; -AZIT250T9 PO
[2023-04-28 18:21] VITALS: BP 145/77
== END 2023-04-28 22:37 | disposition left against medical advice (07) ==
LOC: ER 17:52
DX: M54.9 Dorsalgia, unspecified (principal); R42 Dizziness and giddiness; Z53.21 Procedure and treatment not carried out due to patient leaving prior to being seen by health care provider; V49.49XA Driver injured in collision with other motor vehicles in traffic accident, initial encounter; Y93.I9 Activity, other involving external motion; Y92.89 Other specified places as the place of occurrence of the external cause; Y99.8 Other external cause status

== ENCOUNTER 2023-06-12 08:33 | Inpatient (IN) | payer MEDICARE, MEDICAID ==
[2023-06-12] VITALS (7 sets, daily range): BP systolic 124–157; BP diastolic 45–65; PULSE 65–78; RESP 14–20; TEMP 98.3; O2SAT 96–100
[~2023-06-12] VITALS: Ht 152.4 cm; Wt 89.9 kg
[2023-06-12 09:38] LABS: Basophils % (auto) 1.1 % (0.0-2.0); Eosinophils # (auto) 0.2 10 ^3/uL (0-0.8); Monocytes # (auto) 0.6 10 ^3/uL (0-1.3); Red Cell Distribution Width 15.3 % (11.8-14.3); White Blood Cell 4.7 10^3/uL (4.4-10.8)
[2023-06-12 09:43] LABS: Basophils # (auto) 0.1 10 ^3/uL (0-0.2); Eosinophils % (auto) 3.8 % (0.0-7.0); Hematocrit 42.1 % (36.0-46.0); Hemoglobin 13.6 g/dL (12.2-16.2); Lymphocytes # (auto) 1.3 10 ^3/uL (0.4-5.4); Lymphocytes % (auto) 28.4 % (10.0-50.0); Mean Corpuscular Hemoglobin 25.6 pg (28.0-32.0); Mean Corpuscular Hgb Conc. 32.4 g/dL (32.0-36.0); Mean Corpuscular Volume 78.9 fL (80.0-100.0); Monocytes % (auto) 12.2 % (0.0-12.0); Neutrophils # (auto) 2.6 10 ^3/uL (1.6-8.6); Neutrophils % (auto) 54.5 % (37.0-80.0); Nucleated Red Blood Cells % 0.1 %; Red Blood Cells 5.33 10^6/uL (4.0-5.20)
[2023-06-12 09:52] LABS: Albumin 3.5 g/dL (3.4-5.0); Calcium 9.2 mg/dL (8.5-10.1); Potassium 3.1 mmol/L (3.5-5.1)
[2023-06-12 09:56] LABS: BUN/Creatinine Ratio 17.4 (10.0-20.0); Bilirubin, Total 0.4 mg/dL (0.2-1.0); Total Protein 7.2 g/dL (6.4-8.2)
[2023-06-12 10:06] LABS: Urine Bacteria FEW /hpf (None Seen); Urine Blood Negative /uL (Negative); Urine Hyaline Cast FEW /lpf (0 - 2); Urine Specific Gravity 1.018 (1.001-1.035); Urine WBC 19 /hpf (0 - 5)
[2023-06-12 11:33] LABS: Partial Thromboplastin Time 26.5 SEC (24.5-34.5)
[2023-06-12] MEDS ORDERED: POTASSIUM CHL 20 Meq TABLET PO ONE (13:00)
[2023-06-12] MEDS ORDERED: IOHEXOL 350 MG/ML 100ML IJ ONE (13:17)
[2023-06-12] MEDS ORDERED: IODIXANOL 320MG/ML 100ML BTL IV ONE (13:18)
[2023-06-12] MEDS ORDERED: PANTOPRAZOLE 40 MG/10 ML VIAL INJ IV ONE (13:45)
[2023-06-12] MEDS ORDERED: MORPHINE SULFATE INJ 2 MG/ml SYRG IV PRN (13:45)
[2023-06-12] MEDS ORDERED: NITROGLYCERIN 0.4 MG SL TAB SL PRN (13:45)
[2023-06-12] MEDS ORDERED: ACETAMINOPHEN 325 MG TAB PO PRN (13:45)
[2023-06-12] MEDS ORDERED: KETOROLAC TROMETH 30 MG/ML 1ML VIAL IV ONE (13:45)
[2023-06-12] MEDS ORDERED: ONDANSETRON HCL 4 MG/2 ML VIAL IV PRN (13:45)
[2023-06-12] MEDS ORDERED: cefTRIAXone 1GM/50ML D5W 50 ML IV ONE (13:45)
[2023-06-12] MEDS ORDERED: ALBUTEROL SULF 2.5 MG/0.5ML(0.5%) NEB SOLN NEB PRN (14:00)
[2023-06-12] MEDS: HYDROcodone-ACET 5/325MG TAB PO PRN (14:12)
[2023-06-12] MEDS: SODIUM CHLORIDE 0.9% 1,000 ML IV SCH (14:12)
[2023-06-12 16:56] LABS: Cholesterol 248 mg/dL (< 200); HDL Cholesterol 74 mg/dL (40-59); LDL Cholesterol 148 mg/dL (< 100); Triglycerides 122 mg/dL (< 150)
[2023-06-13] VITALS (9 sets, daily range): BP systolic 110–157; BP diastolic 35–70; PULSE 63–72; RESP 14–18; TEMP 97.4–98.9; O2SAT 96–99
[2023-06-13] MEDS ORDERED: GABA800T97 PO (00:41)
[2023-06-13] MEDS: SODIUM CHLORIDE 0.9% 1,000 ML IV SCH ×2 (03:40→15:41)
[2023-06-13] MEDS: HYDROcodone-ACET 5/325MG TAB PO PRN ×2 (03:50→09:20)
[2023-06-13 06:28] LABS: Basophils # (auto) 0 10 ^3/uL (0-0.2); Eosinophils # (auto) 0.2 10 ^3/uL (0-0.8); Lymphocytes # (auto) 1.6 10 ^3/uL (0.4-5.4); Monocytes # (auto) 0.4 10 ^3/uL (0-1.3); Neutrophils # (auto) 0.8 10 ^3/uL (1.6-8.6); White Blood Cell 3.1 10^3/uL (4.4-10.8)
[2023-06-13 06:31] LABS: Basophils % (auto) 0.7 % (0.0-2.0); Eosinophils % (auto) 6.2 % (0.0-7.0); Hematocrit 37.5 % (36.0-46.0); Hemoglobin 11.9 g/dL (12.2-16.2); Lymphocytes % (auto) 51.5 % (10.0-50.0); Mean Corpuscular Hemoglobin 25.5 pg (28.0-32.0); Mean Corpuscular Hgb Conc. 31.8 g/dL (32.0-36.0); Mean Corpuscular Volume 80.1 fL (80.0-100.0); Monocytes % (auto) 14.3 % (0.0-12.0); Neutrophils % (auto) 27.3 % (37.0-80.0); Nucleated Red Blood Cells % 0.1 %; Red Blood Cells 4.69 10^6/uL (4.0-5.20); Red Cell Distribution Width 15.4 % (11.8-14.3)
[2023-06-13 06:47] LABS: Calcium 8.9 mg/dL (8.5-10.1); Potassium 3.2 mmol/L (3.5-5.1)
[2023-06-13 06:53] LABS: BUN/Creatinine Ratio 19.3 (10.0-20.0); Bilirubin, Total 0.3 mg/dL (0.2-1.0)
[2023-06-13] MEDS: cefTRIAXone 1GM/50ML D5W 50 ML IV SCH (09:01)
[2023-06-13] MEDS: CHOLECALCIFEROL (VITD3) 2,000 UNIT CAP/TAB PO SCH (09:19)
[2023-06-13] MEDS: ASPirin 81 mg TAB PO SCH (09:20)
[2023-06-13] MEDS: ENOXAPARIN SOD 40 MG/0.4 ML SYRINGE SC SCH (09:21)
[2023-06-13] MEDS ORDERED: ASCORBIC ACID 500 MG TAB PO SCH (10:00)
[2023-06-13] MEDS ORDERED: PANTOPRAZOLE 40 MG/10 ML VIAL INJ IV SCH (10:00)
[2023-06-13] MEDS ORDERED: amLODIPine BESYLATE 5 MG TAB PO SCH ×2 (10:00→22:00)
[2023-06-13] MEDS ORDERED: PATIENTS OWN MEDICATION (Cholecalciferol (Vitamin D3) 1 TAB) PO SCH (10:00)
[2023-06-13] MEDS ORDERED: METOPROLOL SUCCINATE XL 50 MG TAB PO SCH (10:00)
[2023-06-13] MEDS ORDERED: POTASSIUM CHL 20 Meq TABLET PO ONE (12:00)
[2023-06-13] MEDS ORDERED: ATORVASTATIN 20 MG TAB PO ONE (12:00)
[2023-06-13] MEDS: ATORVASTATIN 20 MG TAB PO SCH (21:18)
[2023-06-13] MEDS: GABAPENTIN 400 MG CAP PO SCH (21:18)
[2023-06-14] VITALS (9 sets, daily range): BP systolic 107–141; BP diastolic 55–76; PULSE 56–68; RESP 16–20; TEMP 97.4–98.3; O2SAT 93–100
[2023-06-14 07:05] LABS: Calcium 8.9 mg/dL (8.5-10.1); Potassium 3.5 mmol/L (3.5-5.1)
[2023-06-14 07:11] LABS: BUN/Creatinine Ratio 17.4 (10.0-20.0)
[2023-06-14 09:03] LABS: Basophils # (auto) 0 10 ^3/uL (0-0.2); Eosinophils # (auto) 0.2 10 ^3/uL (0-0.8); Lymphocytes # (auto) 1.5 10 ^3/uL (0.4-5.4); Monocytes # (auto) 0.3 10 ^3/uL (0-1.3); Neutrophils # (auto) 1.3 10 ^3/uL (1.6-8.6); Red Cell Distribution Width 15.2 % (11.8-14.3); White Blood Cell 3.3 10^3/uL (4.4-10.8)
[2023-06-14 09:05] LABS: Basophils % (auto) 0.2 % (0.0-2.0); Eosinophils % (auto) 6.1 % (0.0-7.0); Hematocrit 38.6 % (36.0-46.0); Hemoglobin 12.4 g/dL (12.2-16.2); Lymphocytes % (auto) 45.1 % (10.0-50.0); Mean Corpuscular Hemoglobin 25.4 pg (28.0-32.0); Mean Corpuscular Hgb Conc. 32.1 g/dL (32.0-36.0); Monocytes % (auto) 8.6 % (0.0-12.0); Nucleated Red Blood Cells % 0.2 %; Red Blood Cells 4.88 10^6/uL (4.0-5.20)
[2023-06-14] MEDS: HYDROcodone-ACET 5/325MG TAB PO PRN (10:38)
[2023-06-14] MEDS: ASPirin 81 mg TAB PO SCH (10:39)
[2023-06-14] MEDS: PANTOPRAZOLE 40 MG TAB PO SCH (10:39)
[2023-06-14] MEDS: CHOLECALCIFEROL (VITD3) 2,000 UNIT CAP/TAB PO SCH (10:39)
[2023-06-14] MEDS: GABAPENTIN 400 MG CAP PO SCH ×2 (10:40→22:02)
[2023-06-14] MEDS: METOPROLOL SUCCINATE XL 50 MG TAB PO SCH (10:40)
[2023-06-14] MEDS: ENOXAPARIN SOD 40 MG/0.4 ML SYRINGE SC SCH (10:41)
[2023-06-14] MEDS: cefTRIAXone 1GM/50ML D5W 50 ML IV SCH (10:41)
[2023-06-14] MEDS: ATORVASTATIN 20 MG TAB PO SCH (22:02)
[2023-06-15] VITALS (9 sets, daily range): BP systolic 111–157; BP diastolic 43–63; PULSE 57–63; RESP 17–18; TEMP 97.9–98.3; O2SAT 95–100
[2023-06-15] MEDS: ENOXAPARIN SOD 40 MG/0.4 ML SYRINGE SC SCH (09:03)
[2023-06-15] MEDS: cefTRIAXone 1GM/50ML D5W 50 ML IV SCH (09:03)
[2023-06-15] MEDS: ASPirin 81 mg TAB PO SCH (09:04)
[2023-06-15] MEDS: METOPROLOL SUCCINATE XL 50 MG TAB PO SCH (09:04)
[2023-06-15] MEDS: GABAPENTIN 400 MG CAP PO SCH (09:04)
[2023-06-15] MEDS: CHOLECALCIFEROL (VITD3) 2,000 UNIT CAP/TAB PO SCH (09:05)
[2023-06-15] MEDS: PANTOPRAZOLE 40 MG TAB PO SCH (09:05)
[2023-06-15] MEDS ORDERED: POTA-228 PO (15:43)
[2023-06-15] MEDS ORDERED: FURO1TAB33 PO (15:43)
[2023-06-15] MEDS ORDERED: CEPH250C PO (15:43)
== END 2023-06-15 19:00 | disposition home or self-care (01) | DRG 689 ==
LOC: ER 08:33 → TELE 13:38 → TELE-EAST 21:17 → EAST 06-14 16:36
PROVIDERS: ADMIT Internal Medicine; ATTEND Student in an Organized Health Care Education/Training Program
DX: N39.0 Urinary tract infection, site not specified (principal); I50.31 Acute diastolic (congestive) heart failure; I13.0 Hypertensive heart and chronic kidney disease with heart failure and stage 1 through stage 4 chronic kidney disease, or unspecified chronic kidney disease; Z68.38 Body mass index [BMI] 38.0-38.9, adult; E66.01 Morbid (severe) obesity due to excess calories; E78.5 Hyperlipidemia, unspecified; E87.6 Hypokalemia; K21.9 Gastro-esophageal reflux disease without esophagitis; N18.2 Chronic kidney disease, stage 2 (mild); I27.20 Pulmonary hypertension, unspecified; J44.9 Chronic obstructive pulmonary disease, unspecified; G62.9 Polyneuropathy, unspecified; I25.10 Atherosclerotic heart disease of native coronary artery without angina pectoris; Z20.822 Contact with and (suspected) exposure to COVID-19; Z86.73 Personal history of transient ischemic attack (TIA), and cerebral infarction without residual deficits; Z83.3 Family history of diabetes mellitus; Z82.49 Family history of ischemic heart disease and other diseases of the circulatory system
CPT/HCPCS: 36415; 71045; 71275; 76775; 80048; 80053; 80061; 81001; 83036; 83605; 83735; 83880; 84132; 84443; 84484; 85025; 85379; 85610; 85730; 87040; 87086; 87426; 87804; 93005; 93306; C9113; G0378; J0696; J1885; Q9967

== ENCOUNTER 2024-04-23 10:32 | Emergency (ER) | payer MEDICARE, MEDICAID ==
[~2024-04-23] VITALS: Ht 152.4 cm; Wt 80.1 kg
[~2024-04-23 10:32] MED LIST changes: -AZIT-43 PO; -CEFD300C2 PO; +CEPH250C PO; +FURO1TAB33 PO; -FURO40TA4 PO; +GABA800T97 PO; -OXY5T PO; +POTA-228 PO; -PRED20TA2 PO
[2024-04-23 13:37] VITALS: BP 142/64; PULSE 73; TEMP 98.4
[2024-04-23] MEDS: IPRATROPIUM BROM 0.5 MG/2.5ML INH SOL NEB ONE (13:52)
[2024-04-23] MEDS: ALBUTEROL SULF 2.5 MG/0.5ML(0.5%) NEB SOLN NEB ONE (13:52)
[2024-04-23 14:05] VITALS: RESP 16; O2SAT 97
[2024-04-23] MEDS ORDERED: BENZ100C97 PO (14:23)
[2024-04-23] MEDS ORDERED: PRED20TA2 PO (14:23)
[2024-04-23] MEDS ORDERED: DOXY1CAP57 PO (14:23)
[2024-04-23] MEDS ORDERED: ALBUAER3 IN (14:23)
== END 2024-04-23 14:37 | disposition home or self-care (01) ==
LOC: ER 10:32
DX: J20.9 Acute bronchitis, unspecified (principal); M54.59 Other low back pain; I12.9 Hypertensive chronic kidney disease with stage 1 through stage 4 chronic kidney disease, or unspecified chronic kidney disease; N18.9 Chronic kidney disease, unspecified; K21.9 Gastro-esophageal reflux disease without esophagitis; F32.9 Major depressive disorder, single episode, unspecified; E78.5 Hyperlipidemia, unspecified; Z98.890 Other specified postprocedural states; Z79.899 Other long term (current) drug therapy
CPT/HCPCS: 71046; 72100; 94640; 99284; J7644

== ENCOUNTER 2024-05-18 18:05 | Inpatient (IN) | payer MEDICARE, MEDICAID ==
[~2024-05-18] VITALS: Ht 152.4 cm; Wt 84.0 kg
[~2024-05-18 18:05] MED LIST changes: +BENZ100C97 PO; +DOXY1CAP57 PO; +PRED20TA2 PO
[2024-05-18 21:43] LABS: Urine Bacteria FEW /hpf (None Seen); Urine Blood Negative /uL (Negative); Urine Clarity Clear (Clear); Urine Color Yellow (Yellow); Urine Mucus FEW (None Seen); Urine Protein, UAD TRACE (Negative); Urine Specific Gravity 1.032 (1.001-1.035); Urine Urobilinogen 2 mg/dL (Negative); Urine WBC 5 /hpf (0 - 5); Urine pH 5.5 (5.0-9.0)
[2024-05-18 21:50] LABS: Basophils # (auto) 0 10 ^3/uL (0-0.2); Basophils % (auto) 0.6 % (0.0-2.0); Eosinophils # (auto) 0.1 10 ^3/uL (0-0.8); Eosinophils % (auto) 4.4 % (0.0-7.0); Hematocrit 41.2 % (36.0-46.0); Hemoglobin 13.3 g/dL (12.2-16.2); Lymphocytes # (auto) 0.9 10 ^3/uL (0.4-5.4); Lymphocytes % (auto) 27.7 % (10.0-50.0); Mean Corpuscular Hemoglobin 26.2 pg (28.0-32.0); Mean Corpuscular Hgb Conc. 32.2 g/dL (32.0-36.0); Mean Corpuscular Volume 81.2 fL (80.0-100.0); Monocytes # (auto) 0.3 10 ^3/uL (0-1.3); Monocytes % (auto) 10.1 % (0.0-12.0); Neutrophils # (auto) 1.8 10 ^3/uL (1.6-8.6); Neutrophils % (auto) 57.2 % (37.0-80.0); Nucleated Red Blood Cells % 0.3 %; Red Blood Cells 5.08 10^6/uL (4.0-5.20); Red Cell Distribution Width 15.5 % (11.8-14.3); White Blood Cell 3.1 10^3/uL (4.4-10.8)
[2024-05-18] MEDS: MECLIZINE HCL 25 MG TAB PO ONE (22:02)
[2024-05-18 22:25] LABS: Alanine Aminotransferase 19 U/L (7-40); Albumin 4.1 g/dL (3.2-4.8); Alkaline Phosphatase 89 U/L (46-116); Anion Gap 6 (5-15); Aspartate Aminotransferase 14 U/L (13-40); BUN/Creatinine Ratio 11.7 (10.0-20.0); Bilirubin, Total 0.3 mg/dL (0.2-1.0); Blood Urea Nitrogen 11 mg/dL (9-23); Calcium 9.4 mg/dL (8.5-10.1); Carbon Dioxide 23 mmol/L (20-30); Chloride 114 mmol/L (98-107); Glucose 81 mg/dL (74-106); Potassium 3.8 mmol/L (3.5-5.1); Sodium 143 mmol/L (136-145); Total Protein 6.8 g/dL (5.7-8.2)
[2024-05-19] VITALS (10 sets, daily range): BP systolic 131–147; BP diastolic 42–57; PULSE 55–64; RESP 12–20; TEMP 97.5–98.5; O2SAT 96–100
[2024-05-19] MEDS: IOHEXOL 350 MG/ML 100ML IJ ONE (02:00)
[2024-05-19] MEDS: CEPHALEXIN 250 MG CAP PO ONE (02:05)
[2024-05-19] MEDS ORDERED: cloNIDine HCL 0.1 MG TAB PO PRN (02:45)
[2024-05-19] MEDS ORDERED: ALBUTEROL SULF 2.5 MG/0.5ML(0.5%) NEB SOLN NEB PRN (02:45)
[2024-05-19] MEDS: POTASSIUM CHL 20 Meq TABLET PO ONE (03:33)
[2024-05-19] MEDS ORDERED: FURO40TA4 PO (06:25)
[2024-05-19] MEDS ORDERED: HYDR25TA4 PO (06:25)
[2024-05-19] MEDS ORDERED: ATOR10TA52 PO (06:25)
[2024-05-19] MEDS: cefTRIAXone 1GM/50ML D5W 50 ML IV SCH (09:27)
[2024-05-19] MEDS: ASPirin 81 mg TAB PO SCH (09:28)
[2024-05-19] MEDS: amLODIPine BESYLATE 5 MG TAB PO SCH (09:31)
[2024-05-19] MEDS: FUROSEMIDE 20 MG TAB PO SCH (09:32)
[2024-05-19] MEDS: METOPROLOL SUCCINATE XL 50 MG TAB PO SCH (09:32)
[2024-05-19] MEDS: ATORVASTATIN 20 MG TAB PO SCH (23:40)
[2024-05-20] VITALS (7 sets, daily range): BP systolic 131–152; BP diastolic 44–70; PULSE 59–72; RESP 16–18; TEMP 97.8–98.4; O2SAT 94–98
[2024-05-20 06:06] LABS: Chloride 110 mmol/L (98-107); Potassium 3.4 mmol/L (3.5-5.1); Sodium 141 mmol/L (136-145)
[2024-05-20 06:07] LABS: Anion Gap 7 (5-15); Calcium 9.6 mg/dL (8.5-10.1); Carbon Dioxide 24 mmol/L (20-30)
[2024-05-20 06:12] LABS: BUN/Creatinine Ratio 11.6 (10.0-20.0); Blood Urea Nitrogen 10 mg/dL (9-23); Glucose 87 mg/dL (74-106)
[2024-05-20] MEDS: MECLIZINE HCL 25 MG TAB PO PRN (09:48)
[2024-05-20] MEDS ORDERED: AMLO1TAB23 PO (10:00)
[2024-05-20] MEDS: POTASSIUM CHL 20 Meq TABLET PO ONE (10:00)
[2024-05-20] MEDS ORDERED: MECL1TAB42 PO (10:00)
== END 2024-05-20 15:15 | disposition home or self-care (01) | DRG 305 ==
LOC: ER 18:05 → OVERFLOW 05-19 04:58 → CENTRAL 05-19 04:58 → UNDODEPER 05-19 07:58
PROVIDERS: ADMIT Nurse Practitioner; ATTEND Internal Medicine
DX: I16.0 Hypertensive urgency (principal); G45.9 Transient cerebral ischemic attack, unspecified; I50.32 Chronic diastolic (congestive) heart failure; N39.0 Urinary tract infection, site not specified; G40.209 Localization-related (focal) (partial) symptomatic epilepsy and epileptic syndromes with complex partial seizures, not intractable, without status epilepticus; I11.0 Hypertensive heart disease with heart failure; K21.9 Gastro-esophageal reflux disease without esophagitis; E78.5 Hyperlipidemia, unspecified; F32.A Depression, unspecified; F41.9 Anxiety disorder, unspecified; G47.33 Obstructive sleep apnea (adult) (pediatric); E66.9 Obesity, unspecified; Z82.0 Family history of epilepsy and other diseases of the nervous system; Z80.6 Family history of leukemia; Z82.49 Family history of ischemic heart disease and other diseases of the circulatory system; Z82.3 Family history of stroke; Z83.3 Family history of diabetes mellitus; Z90.710 Acquired absence of both cervix and uterus; Z86.73 Personal history of transient ischemic attack (TIA), and cerebral infarction without residual deficits; Z68.36 Body mass index [BMI] 36.0-36.9, adult
CPT/HCPCS: 36415; 70450; 70551; 80048; 80053; 81001; 82962; 83880; 84484; 85025; 85379; 93005; 97110; 97116; 97163; 97530; G0378

== ENCOUNTER 2025-06-15 16:46 | Emergency (ER) | payer MEDICARE, MEDICAID ==
[~2025-06-15] VITALS: Ht 152.4 cm; Wt 77.0 kg
[2025-06-15 16:46] VITALS: TEMP 98.8
[~2025-06-15 16:46] MED LIST changes: +AMLO1TAB23 PO; +ATOR10TA52 PO; -BENZ100C97 PO; -CEPH250C PO; -DOXY1CAP57 PO; -FURO1TAB33 PO; +FURO40TA4 PO; +HYDR25TA4 PO; +MECL1TAB42 PO; -POTA-228 PO; -PRED20TA2 PO
--- NOTE | 2025-06-15 17:37 | ED.PDOC ---
HPI Comments Patient is a 74-year-old female with a with a medical history of hypertension, CKD stage 3, TIA, depression presented to the ED with a chief complaint of chest pain. Patient reports having chest pain substernal/left side of the sternum, sharp in character, radiating to the left shoulder with the tingling and numbness in the left arm more than the right, occurred at rest, does not report of any exacerbating factors, denied any nausea, vomiting, abdominal pain, perspiration. Patient reports to be on metoprolol 100 mg once daily and amlodipine 10 mg once daily and furosemide 20 mg twice daily but reports that she ran out of her amlodipine and has noticed to be having high blood pressure. Patient went to her PCP today and was noticed to have elevated blood pressure at 215/89 mmHg following which she was sent to the ED for further management. Patient reports to be having headaches every morning she wakes up associated with dizziness and generalized weakness. Chief Complaint: Chest Pain Time Seen by MD: 16:50 Primary Care Provider: ANTOINE Reviewed Notes: Nurses Notes, Medications, Allergies Allergies: Coded Allergies: NO KNOWN ALLERGIES (Unverified , 05/31/11) Home Meds Active Scripts Amlodipine Besylate (Amlodipine Besylate) 10 Mg Tab, 10 MG PO DAILY for 30 Days, #30 TAB 3 Refills Prov:RAHEEM BIRD MD 05/20/24 Meclizine HCl (Meclizine 25) 25 Mg Tab, 25 MG PO TIDP PRN for 7 Days, #21 TAB Prov:RAHEEM BIRD MD 05/20/24 Albuterol Sulfate (VENTOLIN MDI) 90 Mcg Ih, 90 MCG IN Q6HPRN PRN for 30 Days, #30 INH Prov:KAL HORVATH MD 11/20/22 Pantoprazole Sodium Sesquihydr (Pantoprazole Sodium) 40 Mg Tab, 40 MG PO BID for 30 Days, #60 TAB Prov:KAL HORVATH MD 11/20/22 Aspirin (Asa) 81 Mg Ch, 81 MG PO DAILY, #30 TAB Prov:RADHA HAQ MD 10/04/18 Reported Medications Hydrochlorothiazide (Hydrochlorothiazide) 25 Mg Tab, 25 MG PO DAILY, TAB 05/19/24 Furosemide (Furosemide) 40 Mg Tab, 1 TAB PO DAILY 05/19/24 Atorvastatin Calcium (ATORVASTATIN CALCIUM) 10 Mg Tab, 1 TAB PO DAILY 05/19/24 Gabapentin (Gabapentin) 800 Mg Tab, TAB PO DAILY 06/13/23 Ascorbic Acid (VITAMIN C TABLET) 500 Mg Tb, 1 TAB PO DAILY, #30 TAB 11/19/22 Cholecalciferol (VITAMIN D3) 2,000 Unit Tab, 1 TAB PO DAILY, #30 TAB 5 Refills 11/19/22 Amlodipine Besylate (NORVASC TABLET) 5 Mg Tb, 1 TAB PO DAILY, #30 TAB 5 Refills 03/13/17 Metoprolol Succinate (Metoprolol Succinate Er) 50 Mg Tab, 100 MG PO DAILY, #30 TAB 5 Refills 03/13/17 Information Source: Patient Mode of Arrival: Ambulatory Past Medical History PAST MEDICAL HISTORY: CKF, CVA, Depression, GERD, High Lipids, HTN, TIA Surgical History: Hysterectomy EVENTS 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 ASSISTANT History: No Pertinent EVENTS 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 ASSISTANT History Family History Family History: Reviewed,noncontributory to illness, Family hx of DM, Family hx of heart papa Social History Smoker: Non-Smoker Alcohol: Denies ETOH Use Drugs: Denies Drug Use Lives In: Home Constitutional: reports: fatigue EENTM: denies: blurred vision, double vision, ear bleeding, ear discharge, ear drainage, ear pain, ear ringing, eye pain, eye redness, hearing loss, mouth pain, mouth swelling, nasal discharge, nose bleeding, nose congestion, nose pain, photophobia, tearing, throat pain, throat swelling, voice changes, others Respiratory: denies: cough, hemoptysis, orthopnea, SOB at rest, shortness of breath, SOB with excertion, stridor, wheezing, others Cardiovascular: reports: chest pain; denies: dizzy spells, diaphoresis, Dyspnea on exertion, edema, irregular heart beat, left arm pain, lightheadedness, palpitations, PND, syncope, others Gastrointestinal: denies: abdomen distended, abdominal pain, blood streaked bowels, constipated, diarrhea, dysphagia, difficulty swallowing, hematemesis, melena, nausea, poor appetite, poor fluid intake, rectal bleeding, rectal pain, vomiting, others Genitourinary: denies: abnormal vagina bleeding, burning, dyspareunia, dysuria, flank pain, frequency, hematuria, incontinence, pain, , vagina discharge, urgency, others Neurological: reports: dizziness, headache Musculoskeletal: denies: back pain, gout, joint pain, joint swelling, muscle pain, muscle stiffness, neck pain, others Integumetry: denies: bruises, change in color, change in hair/nails, dryness, laceration, lesions, lumps, rash, wounds, others Allergic/Immunocompromised: denies: Difficulty Healing, Frequent Infections, Hives, Itching, others Hematologic/Lymphatic: denies: anemia, blood clots, easy bleeding, easy bruising, swollen glands, others Endocrine: denies: excessive hunger, excessive sweating, excessive thirst, excessive urination, flushing, intolerance to cold, intolerance to heat, unexplained weight gain, unexplained weight loss, others Psychiatric: denies: anxiety, bipolar disorder, depression, hopeless, panic disorder, schizophrenia, sleepless, suicidal, others Physical Exam General Appearance: Mild Distress HEENT: PERRL/EOMI, Pharynx Normal Neck: Full Range of Motion, Non-Tender, Normal Inspection Respiratory: No Accessory Muscle Use, No Respiratory Distress, Normal Breath Sounds Cardiovascular: No Edema, No JVD, No Murmur, Normal Peripheral Pulses, Regular Rate/Rhythm Breast Exam: Deferred Gastrointestinal: No Organomegaly, Non Tender, Normal Bowel Sounds Genitalia: Deferred Pelvic: Deferred Rectal: Deferred Extremities: Normal inspection, Normal range of motion, No pedal edema Neurologic: rope machine setter II-XII nml as Tested, Dizziness, No Motor Deficits, No Sensory Deficits Cerebellar Function: Ataxia Reflexes: NOT DONE Skin: Dry, Normal Color, Warm Peripheral Pulses: 2+ dorsalis pedis (R), 2+ dorsalis pedis (L), 2+ Radial (R), 2+ Radial (L) Lymphatic: No Adenopathy EKG EKG : Pulse Rate (adult): 60 [place]: Normal Cardiac Rhythm: NSR Block: None Hypertrophy: None ST: Nonsp Was a procedure done? Was a procedure done?: No CP Differential Dx Differential Diagnosis: Angina Differential Diagnosis: HTN Accelerated Differential Diagnosis: Chest Wall Pain, Costochondritis, Esophageal reflux/spasm X-Ray, Labs, Meds, VS Vital Signs Date Time Temp Pulse Resp B/P (MAP) Pulse Ox O2 Delivery O2 Flow Rate FiO2 06/15/25 18:13 58 18 98 Room Air 06/15/25 18:13 58 18 164/68 (100) 98 06/15/25 17:50 58 06/15/25 17:37 60 06/15/25 16:50 60 06/15/25 16:46 98.8 60 15 176/71 (106) 95 98.8 Lab Test 06/15/25 17:47 06/15/25 16:58 06/15/25 16:55 Range/Units Troponin I High Sensitivity 4 4 </=34 ng/L White Blood Count 4.3 L 4.4-10.8 10^3/uL Red Blood Count 4.95 4.0-5.20 10^6/uL Hemoglobin 12.8 12.2-16.2 g/dL Hematocrit 39.5 36.0-46.0 % Mean Corpuscular Volume 79.8 L 80.0-100.0 fL Mean Corpuscular Hemoglobin 25.8 L 28.0-32.0 pg Mean Corpuscular Hemoglobin Concent 32.3 32.0-36.0 g/dL Red Cell Distribution Width 14.9 H 11.8-14.3 % Platelet Count 207 140-450 10^3/uL Mean Platelet Volume 9.1 6.9-10.8 fL Neutrophils (%) (Auto) 39.9 37.0-80.0 % Lymphocytes (%) (Auto) 47.5 10.0-50.0 % Monocytes (%) (Auto) 8.5 0.0-12.0 % Eosinophils (%) (Auto) 3.3 0.0-7.0 % Basophils (%) (Auto) 0.8 0.0-2.0 % Neutrophils # (Auto) 1.7 1.6-8.6 10 ^3/uL Lymphocytes # (Auto) 2.0 0.4-5.4 10 ^3/uL Monocytes # (Auto) 0.4 0-1.3 10 ^3/uL Eosinophils # (Auto) 0.1 0-0.8 10 ^3/uL Basophils # (Auto) 0 0-0.2 10 ^3/uL Nucleated Red Blood Cells 0.3 % Sodium Level 143 136-145 mmol/L Potassium Level 4.0 3.5-5.1 mmol/L Chloride Level 109 H 98-107 mmol/L Carbon Dioxide Level 27 20-31 mmol/L Anion Gap 7 5-15 Blood Urea Nitrogen 13 9-23 mg/dL Creatinine 0.96 0.550-1.02 mg/dL Glomerular Filtration Rate Calc 62 >90 mL/min BUN/Creatinine Ratio 13.5 10.0-20.0 Serum Glucose 77 74-106 mg/dL Calcium Level 10.3 8.7-10.4 mg/dL POC Glucose 81 70-106 mg/dl Patient is a 74-year-old female with medical history not revisit 2 hypertension, CKD stage 3 came to the ER with the elevated blood pressure and chest pain. Initial ECG showed sinus rhythm with a nonspecific repolarization abnormalities, troponin levels were ordered. Troponin levels were within normal limits. Given patient's typical chest pain and risk factors including hypertension and obesity, and a heart score of 5 patient was advised to get admitted to the hospital for risk stratification. Patient's blood pressure was elevated and was ordered amlodipine 5 mg. Multiple attempts were made to call the patient but she eloped Time of 1ST Reevaluation: 18:21 Reevaluation 1ST: Unchanged Time of 2ND Reevaluation: 20:26 Reevaluation 2ND: No response Patient Education/Counseling: Diagnosis, Treatment Family Education/Counseling: No Family Present SEPSIS Sepsis Screen Date sepsis recognized/suspect: Jun 15, 2025 Time Sepsis recognized/suspect: 1643 Recent Procedure: No On Antibiotic Therapy: No Respiratory Rate >20: No Heart Rate >90: No Temp<36 C (96.8 F) or >38.3 C: No SBP <90 or MAP <65 mmHG: No New Acute Mental Status Change: No Is the patient on CPAP, BIPAP,: No Physician Orders Electrocardigram (06/15/25 16:49) Electrocardigram (06/15/25 17:49) Electrocardigram (06/15/25 19:49) Chest Xray 1 View (06/15/25 17:14) Head Without Contrast (06/15/25 17:14) Urinalysis (06/15/25 17:14) Vital Signs Date Time Temp Pulse Resp B/P (MAP) Pulse Ox O2 Delivery O2 Flow Rate FiO2 06/15/25 18:13 58 18 98 Room Air 06/15/25 18:13 58 18 164/68 (100) 98 06/15/25 17:50 58 06/15/25 17:37 60 06/15/25 16:50 60 06/15/25 16:46 98.8 60 15 176/71 (106) 95 98.8 Laboratory Tests Test 06/15/25 16:58 White Blood Count 4.3 10^3/uL (4.4-10.8) L Departure 1 Departure Time of Disposition: 20:56 Impression: Primary Impression: Chest pain Additional Impression: Musculoskeletal chest pain Disposition: 07 LEFT AWOL/ELOPED Condition: Guarded Critical Care Note Critical Care Time?: No Stability Stability form required: No Heart Score Heart Score: Heart Score Response (Comments) Value History Moderate Suspicious 1 EKG Repolarization Disturb 1 Age >65 2 Risk Factors 1 or 2 risk factors 1 Troponin Normal limit 0 Total 5 [place] [employer] Jun 15, 2025 17:37
--- NOTE | 2025-06-15 18:03 | DVH ---
CT HEAD WITHOUT CONTRAST INDICATION: dizziness COMPARISON: CT HEAD WITHOUT CONTRAST on DOS: 05/18/24, HEAD WITHOUT CONTRAST on DOS: 12/08/22 TECHNIQUE: CT of the head without intravenous contrast. RADIATION DOSE: CTDIvol: 51 mGy, DLP: 908 mGy*cm FINDINGS: There is no evidence of acute intracranial hemorrhage, extra-axial collection, mass effect, midline s hift, herniation or hydrocephalus. The ventricles, sulci and cisterns are age appropriate. The villalobos -white differentiation is intact. The visualized paranasal sinuses and mastoid air cells are clear. The surrounding soft tissues and osseous structures are unremarkable. IMPRESSION: 1. No evidence of acute intracranial hemorrhage, mass effect or hydrocephalus.
[2025-06-15 18:07] LABS: Potassium 4.0 mmol/L (3.5-5.1); Sodium 143 mmol/L (136-145)
[2025-06-15 18:08] LABS: Anion Gap 7 (5-15); Carbon Dioxide 27 mmol/L (20-31); Hematocrit 39.5 % (36.0-46.0); Hemoglobin 12.8 g/dL (12.2-16.2); Mean Corpuscular Hemoglobin 25.8 pg (28.0-32.0); Mean Corpuscular Volume 79.8 fL (80.0-100.0); Nucleated Red Blood Cells % 0.3 %
[2025-06-15 18:09] LABS: Calcium 10.3 mg/dL (8.7-10.4)
[2025-06-15 18:11] LABS: Chloride 109 mmol/L (98-107)
[2025-06-15 18:13] VITALS: BP 164/68; PULSE 58; RESP 18; O2SAT 98
[2025-06-15 18:13] LABS: Glucose 77 mg/dL (74-106)
[2025-06-15 18:14] LABS: BUN/Creatinine Ratio 13.5 (10.0-20.0); Blood Urea Nitrogen 13 mg/dL (9-23)
--- NOTE | 2025-06-15 18:20 | DVH ---
CHEST RADIOGRAPH Indication: SOB Technique: Single frontal view of the chest was obtained Comparison: XY CHEST PORTABLE on DOS: 06/12/23, CHEST PORTABLE on DOS: 12/08/22, CXRP on DOS: 12/08/22 FINDINGS: Lines and Tubes: None Lungs: No focal consolidation. Pleura: No effusion. No pneumothorax. Cardiomediastinal contours: Unremarkable Bones: No acute osseous abnormality. IMPRESSION: No acute cardiopulmonary disease.
--- NOTE | 2025-06-17 07:39 | ECG ---
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
--- NOTE | 2025-06-17 07:39 | ECG ---
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
== END 2025-06-15 21:00 | disposition left against medical advice (07) ==
LOC: ER 16:46
DX: R07.89 Other chest pain (principal); M25.512 Pain in left shoulder; R20.0 Anesthesia of skin; I13.0 Hypertensive heart and chronic kidney disease with heart failure and stage 1 through stage 4 chronic kidney disease, or unspecified chronic kidney disease; N18.30 Chronic kidney disease, stage 3 unspecified; I50.9 Heart failure, unspecified; E78.5 Hyperlipidemia, unspecified; F32.A Depression, unspecified; Z79.82 Long term (current) use of aspirin; Z79.899 Other long term (current) drug therapy; Z86.73 Personal history of transient ischemic attack (TIA), and cerebral infarction without residual deficits; Z90.710 Acquired absence of both cervix and uterus
CPT/HCPCS: 36415; 70450; 71045; 80048; 82947; 82962; 84484; 85025; 93005

== ENCOUNTER 2025-06-19 10:45 | Inpatient (IN) | payer MEDICARE, MEDICAID ==
[~2025-06-19] VITALS: Ht 152.4 cm; Wt 80.8 kg
--- NOTE | 2025-06-19 11:27 | DVH ---
EXAM: CT STROKE CTH HISTORY: stroke like symptoms COMPARISON: CT HEAD WITHOUT CONTRAST on DOS: 06/15/25, CT HEAD WITHOUT CONTRAST on DOS: 05/18/24, HEAD WITHOUT CONTRAST on DOS: 12/08/22 TECHNIQUE: Noncontrast axial CT images of the head were performed. Sagittal and coronal reformatted i mages were obtained. This CT exam was performed using 1 or more of the following dose reduction techn iques: Automated exposure control, adjustment of the mA and/or kv according to patient size, or the u se of iterative reconstruction techniques. Radiation Dose: CTDI volume is 53.46 mGy. Dose-length product is 918.31 mGy*cm FINDINGS: No intracranial hemorrhage, mass, midline shift, hydrocephalus, or evidence of acute large vessel inf arct. There is a stable prominent perivascular space along the caudal margin of the right basal gangl ia. There are mucous retention cysts in the bilateral maxillary sinuses. There are bilateral jeaneth bullosa. The bilateral mastoid air cells and middle ear spaces are clear. No cranial fracture or scal p edema. IMPRESSION: 1. No acute intracranial process. 2. Bilateral maxillary sinus disease.
--- NOTE | 2025-06-19 11:28 | ED.PDOC ---
HPI (NEURO) HPI Comments A 74 year-old female, BIB daughter, presents to the ED via wheelchair with a chief complaint of facial numbness with associated slurred speech as of X1 hour apo. Patient reports additional symptoms of left arm numbness and tingling as of X1 week ago. Per daughter, patient was hospitalized for a coma X3 years ago after having Pneumonia. Since then, patient has been seeing a Neurologist regularly. Patient has no further complaints at this time and otherwise denies further associated symptoms of dizziness, migraine, blurred vision, N/V, or fever. Past Medical history: with a HX of HTN, Heart Palpitations, and Kidney Failure, Past Surgical history: Hysterectomy Medications: Social History: Denies smoking, ETOH, and drug use. Allergies: NKA [place]: stroke like symptoms: HPI: Poor Historian. Chronic left facial numbness and left upper extremity numbness and tingling unchanged. Proximally the hour prior to our evaluation patient and family noticed some speech abnormality. Patient is on blood thinners. Past Medical History: Hypertension Past Surgical History: REVIEW OF SYSTEMS: CONSTITUTIONAL: Denies acute: fever, diaphoresis, chills, HEAD: Denies acute: headache, photophobia Eyes: Denies acute: Double vision, vision loss, eye pain, eye discharge. EARS: Denies acute: tinnitus, hearing loss, ear discharge, ear pain, THROAT: Denies acute: sore throat, swelling, difficulty swallowing , pain with swallowing, change in voice. NECK: Denies acute: neck pain, neck swelling, stiff neck. HEART: Denies acute : chest pain, , LUNGS: Denies acute: SOB, wheezing, cough, hemoptysis ABDOMEN: Denies acute: abdominal pain, Nausea, Vomiting, diarrhea, melena , hematemesis, hematochezia SKIN: Denies acute: rash, redness, lesions, itchiness. EXTREMITIES: Denies acute: calf pain, weakness, denies pain in extremity. Denies acute: Low back pain. Neuro: Denies acute: focal neurological deficit, motor or sensory focal neurological deficit, tremors, seizure like activity, confusion, dizziness, change in mental status, loss of bowel or bladder function, cauda equina like symptoms. : Denies acute: dysuria, hematuria, flank pain, increase in urinary frequency. PSYCH: Denies acute: hallucination, suicidal ideation, homicidal ideation. FEMALE: Denies acute: abnormal vaginal bleeding, foul odor, unusual discharge. PHYSICAL EXAM: General: -----mild---acute distress, awake and alert. Head: normocephalic, atraumatic. Neck: supple, trachea is midline, no swelling. Throat: Normal phonation. Eyes:, no erythema, no purulent discharge, no proptosis, no icterus. Heart: regular rate, regular rhythm, no significant murmur appreciated. Lungs: no apparent respiratory distress, No wheezing, no rhonchi, no crackles. No stridors Clear to auscultation bilaterally. Abdomen: non tender to palpation, non distended, soft, no guarding, no rebound, + bowel sounds. Obese Neuro: Awake, Alert, oriented to name, self, situation, follows commands GCS=15. Skin: no petechia, no purpura, no cyanosis, non-pale, not jaundice. Lower extremities: --no - Pitting edema no deformity, no focal swelling, no calf TTP. Makes eye contact. moves all four extremities. Face: no apparent facial droop. Stroke: finger to nose cerebellar testing is intact. No pronator drift. 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 No nuchal rigidity, Kernig's sign, Brudzinski's sign, no meningeal signs. ED COURSE: DISCLAIMER: This medical document was created using an electronic medical record system with voice recognition software and computerized dictation system. Although this document has been carefully reviewed, there might still be some phonetic and typographical errors. Occasional wrong-word or "sound-alike" substitutions may have occurred due to the inherent limitations of voice recognition software. These areas are purely typographical due to imperfections of the software programs and do not reflect any compromise in the patient's medical care. Please read the chart carefully and recognize, using context, where these substitutions have occurred. Chief Complaint: Stroke Time Seen by MD: 11:00 Primary Care Provider: OGUILLERMO Reviewed Notes: Medications, Allergies Information Source: Patient Mode of Arrival: Ambulatory Severity: Moderate Timing: Hours Duration: Since onset Prehospital treatment: None Associated Signs and Symptoms: Other (PER HPI ) Past Medical History PAST MEDICAL HISTORY: CKF, CVA, Depression, GERD, High Lipids, HTN, TIA Surgical History: Hysterectomy HOSTLER HELPER History: No Pertinent HOSTLER HELPER History Family History Family History: Reviewed,noncontributory to illness, Family hx of DM, Family hx of heart papa Social History Smoker: Non-Smoker Alcohol: Denies ETOH Use Drugs: Denies Drug Use Lives In: Home EKG EKG : Pulse Rate (adult): 59 [place]: Normal Was a procedure done? Was a procedure done?: No Differential Diagnosis (SZ) Seizure: N/A CVA: Muñoz's Palsy, CVA, Delirium Tremens, DKA, Drug Overdose, Electrolyte Imbalance, Encephalopathy, Hypoglycemia, Hypoxemia, Mass Lesion, Respiratory Failure, SAH, TIA, Other (Stroke: DDX include TIA, TGA, CVA, intracranial bleed/mass/infection, cerebellar ischemia/infarct, carotid stenosis, lacunar infarct, vertebral/carotid artery dissection,, vertebrobasillary insufficiency, BPV, encephalopathy, electrolyte abnormality, thyroid disease, hydrocephalus, [place] palsy, multiple sclerosis, hypoglycemia, drug toxicity, cardiac arrhythmia, todds paralysis, seizure.) X-Ray, Labs, Meds, VS Vital Signs Date Time Temp Pulse Resp B/P (MAP) Pulse Ox O2 Delivery O2 Flow Rate FiO2 06/19/25 17:45 74 16 126/49 (74) 98 06/19/25 17:30 75 16 118/48 (71) 98 06/19/25 17:15 75 16 119/53 (75) 98 06/19/25 17:13 141/56 06/19/25 17:00 71 16 141/56 (84) 98 06/19/25 17:00 141/56 06/19/25 16:45 74 16 141/55 (83) 98 06/19/25 16:30 76 16 136/53 (80) 98 06/19/25 16:15 74 16 129/51 (77) 98 06/19/25 16:00 98.4 75 16 136/52 (80) 98 98.4 06/19/25 16:00 136/52 06/19/25 15:45 75 16 124/51 (75) 98 06/19/25 15:30 75 16 124/52 (76) 98 06/19/25 15:15 74 16 131/52 (78) 98 06/19/25 15:00 128/48 06/19/25 15:00 78 16 130/48 (75) 98 06/19/25 14:45 75 16 125/48 (73) 98 06/19/25 14:33 71 06/19/25 14:30 127/51 06/19/25 14:30 75 16 127/51 (76) 98 06/19/25 14:15 77 16 133/58 (83) 98 06/19/25 14:00 79 16 137/59 (85) 98 06/19/25 13:45 80 16 128/55 (79) 98 06/19/25 13:30 77 16 163/62 (95) 98 06/19/25 13:30 163/62 06/19/25 13:15 183/64 06/19/25 13:15 74 16 183/64 (103) 98 06/19/25 13:09 70 196/74 06/19/25 13:05 196/74 06/19/25 13:00 66 16 196/74 (114) 98 06/19/25 12:45 64 16 208/80 (122) 98 06/19/25 12:42 64 208/80 06/19/25 12:30 63 16 219/78 (125) 98 06/19/25 12:17 67 230/83 06/19/25 12:15 60 16 230/83 (132) 98 06/19/25 12:10 98 Room Air* 0 21 06/19/25 12:04 59 06/19/25 12:00 60 16 239/79 (132) 98 06/19/25 11:51 64 16 98 Room Air* 0 21 06/19/25 11:45 67 16 204/67 (112) 98 06/19/25 11:42 60 225/75 06/19/25 11:30 58 16 225/75 (125) 98 06/19/25 11:28 59 06/19/25 11:15 56 16 212/52 (105) 98 06/19/25 11:00 97.7 63 16 225/112 (149) 98 97.7 06/19/25 10:55 98.8 57 18 212/52 (105) 99 98.8 06/19/25 10:53 59 Lab Test 06/19/25 15:32 06/19/25 13:21 06/19/25 11:25 06/19/25 11:10 Range/Units Troponin I High Sensitivity 7 5 6 </=34 ng/L White Blood Count 4.0 L 4.4-10.8 10^3/uL Red Blood Count 4.94 4.0-5.20 10^6/uL Hemoglobin 12.9 12.2-16.2 g/dL Hematocrit 39.7 36.0-46.0 % Mean Corpuscular Volume 80.3 80.0-100.0 fL Mean Corpuscular Hemoglobin 26.2 L 28.0-32.0 pg Mean Corpuscular Hemoglobin Concent 32.6 32.0-36.0 g/dL Red Cell Distribution Width 14.9 H 11.8-14.3 % Platelet Count 203 140-450 10^3/uL Mean Platelet Volume 8.9 6.9-10.8 fL Neutrophils (%) (Auto) 40.9 37.0-80.0 % Lymphocytes (%) (Auto) 45.3 10.0-50.0 % Monocytes (%) (Auto) 10.1 0.0-12.0 % Eosinophils (%) (Auto) 2.8 0.0-7.0 % Basophils (%) (Auto) 0.9 0.0-2.0 % Neutrophils # (Auto) 1.6 1.6-8.6 10 ^3/uL Lymphocytes # (Auto) 1.8 0.4-5.4 10 ^3/uL Monocytes # (Auto) 0.4 0-1.3 10 ^3/uL Eosinophils # (Auto) 0.1 0-0.8 10 ^3/uL Basophils # (Auto) 0 0-0.2 10 ^3/uL Nucleated Red Blood Cells 0.2 % Prothrombin Time 10.9 9.3-11.8 sec Prothrombin Time INR 1.03 0.9-1.15 Activated Partial Thromboplast Time 24.6 24.5-34.5 SEC Sodium Level 143 136-145 mmol/L Potassium Level 3.8 3.5-5.1 mmol/L Chloride Level 109 H 98-107 mmol/L Carbon Dioxide Level 26 20-31 mmol/L Anion Gap 8 5-15 Blood Urea Nitrogen 10 9-23 mg/dL Creatinine 0.98 0.550-1.02 mg/dL Glomerular Filtration Rate Calc 61 >90 mL/min BUN/Creatinine Ratio 10.2 10.0-20.0 Serum Glucose 80 74-106 mg/dL Hemoglobin A1c 5.6 <5.7 % A1C Calcium Level 10.1 8.7-10.4 mg/dL Magnesium Level 1.9 1.6-2.6 mg/dL Total Bilirubin 0.6 0.2-1.0 mg/dL Aspartate Amino Transferase (AST) 20 13-40 U/L Alanine Aminotransferase (ALT) 14 7-40 U/L Alkaline Phosphatase 89 46-116 U/L B-Type Natriuretic Peptide 105.72 0-100 pg/mL Total Protein 6.8 5.7-8.2 g/dL Albumin 4.2 3.2-4.8 g/dL Triglycerides Level 110 < 150 mg/dL Cholesterol Level 195 < 200 mg/dL LDL Cholesterol 101 H < 100 mg/dL HDL Cholesterol 61 H 40-59 mg/dL POC Glucose 79 70-106 mg/dl [place] [address] Ph: [phone] DIAGNOSTIC IMAGING Diagnostic Imaging Report : [id number] Signed PATIENT: OCTAVIO MORRIS ACCT: [id number] UNIT: [id number] : 1950 LOC: ER ROOM / BED: / AGE / SEX: 74 / F ADM STATUS: REG ER SERVICE 1100 ORDERING PHYSICIAN: DU DANIELSON DO PROCEDURE(s): CTH - STROKE CTH REASON: stroke like symptoms ORDER NUMBER(s): [id number], ACCESSION NUMBER(s): [id number] EXAM: CT STROKE CTH HISTORY: stroke like symptoms COMPARISON: CT HEAD WITHOUT CONTRAST on DOS: 06/15/25, CT HEAD WITHOUT CONTRAST on DOS: 05/18/24, HEAD WITHOUT CONTRAST on DOS: 12/08/22 TECHNIQUE: Noncontrast axial CT images of the head were performed. Sagittal and coronal reformatted images were obtained. This CT exam was performed using 1 or more of the following dose reduction techniques: Automated exposure control, adjustment of the mA and/or kv according to patient size, or the use of iterative reconstruction techniques. Radiation Dose: CTDI volume is 53.46 mGy. Dose-length product is 918.31 mGy*cm FINDINGS: No intracranial hemorrhage, mass, midline shift, hydrocephalus, or evidence of acute large vessel infarct. There is a stable prominent perivascular space along the caudal margin of the right basal ganglia. There are mucous retention cysts in the bilateral maxillary sinuses. There are bilateral jeaneth bullosa. The bilateral mastoid air cells and middle ear spaces are clear. No cranial fracture or scalp edema. IMPRESSION: 1. No acute intracranial process. 2. Bilateral maxillary sinus disease. [place] [address] Ph: [phone] DIAGNOSTIC IMAGING Diagnostic Imaging Report : [id number] Signed PATIENT: OCTAVIO MORRIS ACCT: [id number] UNIT: [id number] : 1950 LOC: ER ROOM / BED: / AGE / SEX: 74 / F ADM STATUS: REG ER SERVICE 1100 ORDERING PHYSICIAN: DU DANIELSON DO PROCEDURE(s): CXR1 - CHEST XRAY 1 VIEW REASON: stroke like symptoms ORDER NUMBER(s): [id number], ACCESSION NUMBER(s): [id number] XY CHEST XRAY 1 VIEW, HISTORY: stroke like symptoms COMPARISON: XY CHEST XRAY 1 VIEW on DOS: 06/15/25, XY CHEST PORTABLE on DOS: 06/12/23, CHEST PORTABLE on DOS: 12/08/22 XY CHEST XRAY 1 VIEW on DOS: 06/15/25, XY CHEST PORTABLE on DOS: 06/12/23, CHEST PORTABLE on DOS: 12/08/22 TECHNICAL DATA: 1 view of the chest was obtained. FINDINGS: Lines and tubes: None Cardiomediastinal silhouette: normal Pulmonary vasculature: normal Lung expansion: normal Lung airspace: normal Lung interstitium: normal Pleura: normal Pneumothorax: no Bones: Unremarkable Other: no IMPRESSION: No acute intrathoracic abnormality. Images Reviewed?: Images reviewed and evaluated by me Time of 1ST Reevaluation: 12:22 Reevaluation 1ST: Unchanged Patient Education/Counseling: Diagnosis, Treatment Family Education/Counseling: Diagnosis, Treatment Comments MDM: patient presented with the above HPI.--stroke-like symptom----workup was initiated. patient was found with the above mentioned diagnosis. Code stroke was activated immediately. the following medications were ordered: please refer to order lists of meds and tests obtained by myself Dr. Danielson. Patient ED course and VS have been stabilized. Patient has been reassessed in the ED and remained in a stable condition. Pertinent incidental findings were discussed with the patient and/or family. Patient/family voices understanding and is agreeable with plan. Patient has been observed in the ED adequate length of time to insure improvement/stability. Escalation of care considered: Consideration of escalation to observation or admission Patient required to be on a drip for blood pressure control. Neurology was consulted. Patient was ADMITTED to the medicine team for further evaluation and treatment of their presentation. All the reports of any imaging studies that were ordered by myself were reviewed by myself. Medical Screening: No EMC Exist At This Time Departure 1 Departure Time of Disposition: 11:34 Impression: Primary Impression: Stroke-like symptoms Additional Impressions: Hypertensive crisis Slurred speech Disposition: ADMITTED INPATIENT Admit to: Tele Condition: Guarded Critical Care Note Critical Care Time?: Yes (1 hr-critical care time only) Stability Stability form required: No Heart Score Heart Score: Heart Score Response (Comments) Value History N/A 0 EKG N/A 0 Age N/A 0 Risk Factors N/A 0 Troponin N/A 0 Total 0 I personally scribed for DU DANIELSON DO ([email or web address]) on 06/19/25 at 11:28. Electronically submitted by Gisselle Landin ([employer]). I personally scribed for DU DANIELSON DO ([email or web address]) on 06/19/25 at 12:21. Electronically submitted by Gisselle Landin ([employer]). I personally scribed for DU DANIELSON DO ([email or web address]) on 06/19/25 at 12:22. Electronically submitted by Gisselle Landin ([employer]). I personally scribed for DU DANIELSON DO ([email or web address]) on 06/19/25 at 13:58. Electronically submitted by Gisselle Landin ([employer]). DU DANIELSON DO Jun 19, 2025 11:28
[2025-06-19] MEDS: LABETALOL HCL 20 MG/4 ML VL IV ONE ×2 (11:42→12:17)
--- NOTE | 2025-06-19 11:42 | BSKYNEURO ---
[facility] Note # Demographics Consult Type: Acute Stroke Level 2 (4.5-24 hrs) Patient Location: Emergency Room First Name: Libia Last Name: Partha Date of : 1950 Age: 74 Gender: Female Facility: [facility] Time of Initial Page (): 06/19/2025 11:03 Time of Return Call (): 06/19/2025 11:04 # HPI History: 74y with hx of HTN, heart palpitations, CKD stg 3 presenting with numbness on the L side of her face and arm, some weakness in both hands and slurred speech. States the numbness on her L side started yesterday evening and the speech changes started this morning. On my evaluation she has slow stuttering speech but not slurred speech Last Known Normal: Last evening # Scores Time of exam and NIHSS (): 06/19/2025 11:18 Level of Consciousness 1a: [0] = Alert; keenly responsive LOC Questions 1b: [0] = Answers both questions correctly LOC Commands 1c: [0] = Performs both tasks correctly Best Gaze 2: [0] = Normal Visual 3: [0] = No visual loss Facial Palsy 4: [0] = Normal symmetrical movements Motor Arm Left 5a: [0] = No drift Motor Arm Right 5b: [0] = No drift Motor Leg Left 6a: [0] = No drift Motor Leg Right 6b: [0] = No drift Limb Ataxia 7: [0] = Absent Sensory 8: [1] = [id number] sensory loss Best Language 9: [0] = No aphasia Dysarthria 10: [0] = Normal Extinction and Inattention 11: [0] = No abnormality NIHSS Total: 1 # Exam Vitals: vital signs reviewed # Data Time Head CT personally read by me (): 06/19/2025 11:[address]: - no bleed - per radiologist read # Assessment Impression: L hemibody numbness, b/l hand subjective weakness, stuttering speech, R occipital numbness: symptoms do not localize to a single vascular territory, can obtain MRIb to evaluate for stroke but if negative would not pursue further stroke work up # Plan Thrombolytic/Intervention: NOT IV Thrombolysis or IA Intervention candidate Thrombolytic Exclusion: > 4.5 hours Intraarterial Exclusion: - clinical exam not consistent with presence of large vessel occlusion (LVO), can reconsider if LVO found on vascular imaging Modified [place] Scale (mRS) pre-stroke: [1] = No significant disability despite symptoms; able to carry out all usual duties and activities. Target Blood Pressure: - Normotension Imaging: (urgency: STAT): - CT Angiogram Head and CT Angiogram Neck AND call back with results if abnormal Imaging: (urgency: routine): - MRI Brain without contrast Other: - If patient has any neurological deterioration please call me back immediately - would not pursue stroke work-up if MRI is negative - Toxic/metabolic/infectious work up per primary/ER # Logistics Attestation of consult completion: The patient is located at: [facility]. Facility staff participated in the visit. I performed this telemedicine visit from my offsite office utilizing interactive 2 way audio and visual telecommunication technology. Consent: Verbal consent was obtained from the patient and/or family for this encounter. Total time spent in telemedicine encounter: I spent 18 minutes reviewing clinical data and/or imaging, obtaining history, examining the patient, com municating with the onsite care team, and in preparation of this report. # Demographics First Name: Libia Last Name: Partha Facility: [facility] Electronically signed at 06/19/2025 11:42 ([place] Time) by Drea Burton DO Yes DREA BURTON DO Jun 19, 2025 11:42
[2025-06-19 11:51] VITALS: PULSE 64; RESP 16; O2SAT 98
[2025-06-19 11:59] LABS: Hematocrit 39.7 % (36.0-46.0); Hemoglobin 12.9 g/dL (12.2-16.2); Mean Corpuscular Hemoglobin 26.2 pg (28.0-32.0); Mean Corpuscular Volume 80.3 fL (80.0-100.0); Nucleated Red Blood Cells % 0.2 %
[2025-06-19 12:07] LABS: INR 1.03 (0.9-1.15); Partial Thromboplastin Time 24.6 SEC (24.5-34.5); Prothrombin Time 10.9 sec (9.3-11.8)
[2025-06-19 12:08] LABS: Alanine Aminotransferase 14 U/L (7-40); Albumin 4.2 g/dL (3.2-4.8); Alkaline Phosphatase 89 U/L (46-116); Anion Gap 8 (5-15); BUN/Creatinine Ratio 10.2 (10.0-20.0); Bilirubin, Total 0.6 mg/dL (0.2-1.0); Blood Urea Nitrogen 10 mg/dL (9-23); Calcium 10.1 mg/dL (8.7-10.4); Carbon Dioxide 26 mmol/L (20-31); Chloride 109 mmol/L (98-107); Glucose 80 mg/dL (74-106); Magnesium 1.9 mg/dL (1.6-2.6); Potassium 3.8 mmol/L (3.5-5.1); Sodium 143 mmol/L (136-145); Total Protein 6.8 g/dL (5.7-8.2)
[2025-06-19] MEDS ORDERED: NICARDIPINE HCL IN SODIUM CHLO 200 ML IV SCH (13:00)
[2025-06-19] MEDS: NICARDIPINE HCL IN SODIUM CHLO 200 ML IV SCH (13:05)
--- NOTE | 2025-06-19 14:21 | ECG ---
[facility] Test Date: 2025-06-19 Test Time: 12:04:07 Pat Name: OCTAVIO MORRIS Department: ED Room: 0205T Gender: F Cardiac/Vascular Sonographer: ZEE : 1950 Requested By: DU DANIELSON Order Number: [id number] Reading MD: Cristóbal Reyes Measurements Intervals [place] Rate: 59 P: 36 CA: 167 QRS: 45 QRSD: 87 T: 43 QT: 427 QTc: 423 Interpretive Statements Sinus rhythm Minimal ST elevation, anterior leads Electronically Signed On 06-24-2025 17:44:30 PDT by Cristóbal Reyes Please click the below link to view image of tracing.
[2025-06-19] MEDS ORDERED: NITROGLYCERIN 0.4 MG SL TAB SL PRN (18:00)
[2025-06-19] MEDS ORDERED: MORPHINE SULFATE INJ 2 MG/ml SYRG IV PRN (18:00)
[2025-06-19] MEDS ORDERED: ONDANSETRON HCL 4 MG/2 ML VIAL IV PRN (18:00)
--- NOTE | 2025-06-19 18:34 | DVHINCON2 ---
Date of service: Jun 19, [address] Avendano Reason for Consultation Stroke-like syndrome History of Present Illness Ms. Chavis is a 74 years old right-handed female with a history of obesity, anxiety, depression, hypertension, OAS. She came to the hospital on06/19/25 with a chief complaint of facial numbness with associated slurred speech as of X1 hour At that time, she is alert and fully oriented, she provided the following history I saw her in 03/14/2017 for acute stroke syndrome (negative MRI ), 12/31/2017 for ALOC, 05/19/2024 for facial numbness Around 06/19/2025 7:00 a.m., she woke up with slurred voice, numbness and tingling in the left face, mouth, left arm and the leg, weakness in the left arm than leg, she dragging leg when she walked. Around 9:00 a.m., she also had numbness and tingling in the right face. After arrived the ER, she could hardly speak, as time passing by, she has seen improvement, when I saw her in the evening, she still had mild tingling numbness in the left side of her body, and mild left-sided weakness [facility], 06/18/2025:NIHSS: 1 She just started taking aspirin at home The following the previous stroke-like syndrome improved documentation On 05/16/2024, she had tingling, numbness in bifrontal head region, right face, left arm and leg, but without new weakness. She started to improve after he came to the emergency room On 12/28/17, when she was in the shower, she developed lightheadedness, she came out, sat on and she had palpitation, hot feeling in the head and face, numbness in the head, then she decided to lay done in the bed, and she developed numbness in the left face, arm and the leg. 30 minutes later, her daughter noticed that she was sleepy, and had general weakness. The patient admits that she could not keep her eyes open, but she thought that her mind was clear though she did not remember everything clearly. She improved after she came to the emergency room. She has sleep apnea but she could not tolerate APAP treatment WBC/HB/PLT/MCV,: 4/12.9/203/80.3 CMP, 06/19/25: Unremarkable TG/CH OL/LDL/HDL, 02/2017:68/182/108/68. 06/12/2023: 122/248/148/74 HST III, 09/2017: AHI: 5.1. CPAP 10 cmHO2 was recommended Carotid Doppler, 12/29/17: Unremarkable. CT head, 12/29/17: 1. No intracranial hemorrhage or acute intracranial abnormality. 2. MRI may be considered for further evaluation as clinically warranted. 3. Acute chronic inflammatory changes of the paranasal sinuses. CT head 06/19/2025: 1. No acute intracranial process. 2. Bilateral maxillary sinus disease MRI brain, 03/15/17: 1. No evidence of acute infarct. 2. A few scattered foci of T2 / FLAIR hyperintensity in the supratentorial white matter which are nonspecific and can be seen with mild form of chronic microvascular ischemic disease MR head, 12/31/2017: 1. No evidence of acute ischemia. 2. A few foci of increased T2 weighted/FLAIR signal intensity in the deep white matter, nonspecific in appearance though perhaps reflective of complicated migraines, hypertensive microvascular ischemic disease, or sequela from prior traumatic or inflammatory insults MRI head, 05/19/2024: No acute intracranial abnormality Past Medical History Hypertension, obesity, depression, anxiety, YANDY, arthritis Past Surgical History Hysterectomy Family History: FH: epilepsy G8 MOTHER FH: leukemia G8 FATHER Family history: Hypertension G8 MOTHER Stroke G8 MOTHER Family History Hypertension, diabetes, heart disease, stroke, seizure, leukemia Social History She is nonsmoker, no history of alcohol recreational substances abuse Allergies: Coded Allergies: NO KNOWN ALLERGIES (Unverified , 05/31/11) Home Meds Active Scripts Amlodipine Besylate (Amlodipine Besylate) 10 Mg Tab, 10 MG PO DAILY for 30 Days, #30 TAB 3 Refills Prov:RAHEEM BIRD MD 05/20/24 Meclizine HCl (Meclizine 25) 25 Mg Tab, 25 MG PO TIDP PRN for 7 Days, #21 TAB Prov:RAHEEM BIRD MD 05/20/24 Albuterol Sulfate (VENTOLIN MDI) 90 Mcg Ih, 90 MCG IN Q6HPRN PRN for 30 Days, #30 INH Prov:KAL HORVATH MD 11/20/22 Pantoprazole Sodium Sesquihydr (Pantoprazole Sodium) 40 Mg Tab, 40 MG PO BID for 30 Days, #60 TAB Prov:KAL HORVATH MD 11/20/22 Aspirin (Asa) 81 Mg Ch, 81 MG PO DAILY, #30 TAB Prov:RADHA HAQ Taylor TORRES 10/04/18 Reported Medications Hydrochlorothiazide (Hydrochlorothiazide) 25 Mg Tab, 25 MG PO DAILY, TAB 05/19/24 Furosemide (Furosemide) 40 Mg Tab, 1 TAB PO DAILY 05/19/24 Atorvastatin Calcium (ATORVASTATIN CALCIUM) 10 Mg Tab, 1 TAB PO DAILY 05/19/24 Gabapentin (Gabapentin) 800 Mg Tab, TAB PO DAILY 06/13/23 Ascorbic Acid (VITAMIN C TABLET) 500 Mg Tb, 1 TAB PO DAILY, #30 TAB 11/19/22 Cholecalciferol (VITAMIN D3) 2,000 Unit Tab, 1 TAB PO DAILY, #30 TAB 5 Refills 11/19/22 Amlodipine Besylate (NORVASC TABLET) 5 Mg Tb, 1 TAB PO DAILY, #30 TAB 5 Refills 03/13/17 Metoprolol Succinate (Metoprolol Succinate Er) 50 Mg Tab, 100 MG PO DAILY, #30 TAB 5 Refills 03/13/17 Current Medications Current Medications Medications (Trade) Dose Ordered Sig/Caren Route PRN Reason Start Time Stop Time Status Last Admin Nicardipine/ Sodium Chloride 200 ml @ 50 mls/hr Q4H IV 06/19/25 13:00 06/19/25 12:53 DC Nicardipine/ Sodium Chloride 200 ml @ 50 mls/hr Q4H IV 06/19/25 13:00 06/19/25 17:13 Review of Systems As above, the other systems are negative Vital Signs Vital Signs Date Time Temp Pulse Resp B/P (MAP) Pulse Ox O2 Delivery O2 Flow Rate FiO2 06/19/25 18:00 75 16 122/47 (72) 98 06/19/25 16:00 98.4 98.4 06/19/25 12:10 Room Air* 0 21 Physical Exam GENERAL EXAM: General: the patient is well developed and nourished. No acute distress. HEENT: Normocephalic, neck is supple, no carotid bruits. No mass. RESPIRATORY: Normal respiratory effort with symmetrical lung expansion. Lungs clear to auscultation. CARDIOVASCULAR: Regular rate and rhythm with no murmurs. S1, S2. ABDOMEN: Soft, nontender, normal bowel sound NEUROLOGICAL: MENTAL STATUS: Awake and alert. Oriented to person, place, time and general circumstances. Able to give personal history. The patient is aware of recent events SPEECH, LANGUAGE, HIGHER CORTICAL FUNCTION: no aphasia or dysathria. CRANIAL NERVES: #2: Intact visual martinez to confrontation. The optic discs were sharp. #3,4,6: Pupils are equal, round and reactive. EOMs full and conjugate. No nystagmus. #5: Diminished sense to pinprick and light touch in the left face. Mandibular strength intact. #7: Facial muscles symmetrical and strength intact. #8: Hearing grossly normal to voice. #9,10: Uvula and soft palate rise in the midline. Swallow and voice are normal. #11: Trapezius and sternomastoid strength intact bilaterally. #12: Tongue midline. No fasciculations or atrophy. SENSATION: Sensation to touch and pinprick is diminished in the left arm the leg MOTOR: Normal tone in the upper and lower extremity. Normal muscle bulk. No fasciculations. No abnormal movements or posturing. Muscle strength of the major groups in the extremities is 4-5/5 with possible left leg drift. REFLEXES: Deep tendon reflexes normal and symmetrical. No pathological reflexes. CEREBELLAR/COORDINATION: Finger to nose and heel to rogel are normal melchor aterally. GAIT/STATION: deferred. Labs/Diagnostic Data Labs Test 06/19/25 15:32 06/19/25 11:25 06/19/25 11:10 Range/Units Troponin I High Sensitivity 7 </=34 ng/L White Blood Count 4.0 L 4.4-10.8 10^3/uL Red Blood Count 4.94 4.0-5.20 10^6/uL Hemoglobin 12.9 12.2-16.2 g/dL Hematocrit 39.7 36.0-46.0 % Mean Corpuscular Volume 80.3 80.0-100.0 fL Mean Corpuscular Hemoglobin 26.2 L 28.0-32.0 pg Mean Corpuscular Hemoglobin Concent 32.6 32.0-36.0 g/dL Red Cell Distribution Width 14.9 H 11.8-14.3 % Platelet Count 203 140-450 10^3/uL Mean Platelet Volume 8.9 6.9-10.8 fL Neutrophils (%) (Auto) 40.9 37.0-80.0 % Lymphocytes (%) (Auto) 45.3 10.0-50.0 % Monocytes (%) (Auto) 10.1 0.0-12.0 % Eosinophils (%) (Auto) 2.8 0.0-7.0 % Basophils (%) (Auto) 0.9 0.0-2.0 % Neutrophils # (Auto) 1.6 1.6-8.6 10 ^3/uL Lymphocytes # (Auto) 1.8 0.4-5.4 10 ^3/uL Monocytes # (Auto) 0.4 0-1.3 10 ^3/uL Eosinophils # (Auto) 0.1 0-0.8 10 ^3/uL Basophils # (Auto) 0 0-0.2 10 ^3/uL Nucleated Red Blood Cells 0.2 % Prothrombin Time 10.9 9.3-11.8 sec Prothrombin Time INR 1.03 0.9-1.15 Activated Partial Thromboplast Time 24.6 24.5-34.5 SEC Sodium Level 143 136-145 mmol/L Potassium Level 3.8 3.5-5.1 mmol/L Chloride Level 109 H 98-107 mmol/L Carbon Dioxide Level 26 20-31 mmol/L Anion Gap 8 5-15 Blood Urea Nitrogen 10 9-23 mg/dL Creatinine 0.98 0.550-1.02 mg/dL Glomerular Filtration Rate Calc 61 >90 mL/min BUN/Creatinine Ratio 10.2 10.0-20.0 Serum Glucose 80 74-106 mg/dL Calcium Level 10.1 8.7-10.4 mg/dL Magnesium Level 1.9 1.6-2.6 mg/dL Total Bilirubin 0.6 0.2-1.0 mg/dL Aspartate Amino Transferase (AST) 20 13-40 U/L Alanine Aminotransferase (ALT) 14 7-40 U/L Alkaline Phosphatase 89 46-116 U/L B-Type Natriuretic Peptide 105.72 0-100 pg/mL Total Protein 6.8 5.7-8.2 g/dL Albumin 4.2 3.2-4.8 g/dL POC Glucose 79 70-106 mg/dl Assessment Left-sided paresthesia, right facial paresthesia, left-sided weakness, ? Acute stroke syndrome ? Psychogenic/anxiety Obstructive sleep apnea Anxiety Plan/Recommendation Monitoring Supportive treatment Telemetry Carotid Doppler Echocardiogram MRI head Plavix 75 mg daily for 21 days Aspirin 81 mg daily Lipitor 80 mg daily APAP in the hospital Weight control EDS precaution discussed Follow with me on discharge Prognosis: Poor This medical document was created using an electronic medical record system with [employer] dictation system. Although this document has been carefully reviewed, there may still be some phonetic and typographical errors. These areas are purely typographical due to imperfections of the software programs, and do not reflect any compromise in the patient's medical care. Plan discussed with: Patient, Other DANIELA SALOMON MD Jun 19, 2025 18:34
[2025-06-19] MEDS ORDERED: ALBUTEROL SULF HFA 90MCG INH 200DOSE IN PRN (18:45)
[2025-06-19 18:55] LABS: Triglycerides 110 mg/dL (< 150)
[2025-06-19 18:57] LABS: Cholesterol 195 mg/dL (< 200); HDL Cholesterol 61 mg/dL (40-59)
[2025-06-19] MEDS: PANTOPRAZOLE 40 MG/10 ML VIAL INJ IV SCH (18:57)
[2025-06-19] MEDS: ATORVASTATIN 20 MG TAB PO SCH (18:57)
[2025-06-19] MEDS: SODIUM CHLORIDE 0.9% 1,000 ML IV SCH (18:58)
--- NOTE | 2025-06-19 18:58 | DVHHPRES ---
History of Present Illness Resident Creating Document: SACHA CLAY RESIDENT Reason for Visit: Facial numbness and slurred speech for 1 hour History of Present Illness Ms. Octavio Morris is a 74-year-old female presenting to the ED with acute left facial numbness and slurred speech lasting 1 hour. She also reports left arm tingling and left lower extremity weakness/numbness one week prior that partially improved. She has had morning headaches for 2 weeks and intermittent dizziness when ambulating. On arrival, she was found to be in hypertensive emergency (BP 220/110). She received Labetalol 5 mg IV, then 10 mg IV, lowering BP to 192/88. She was started on a Nicardipine drip (10 mg/hr) and BP stabilized to 136/52. Currently, she is alert, oriented, and able to ambulate but reports residual left-sided sensory changes. CT head was negative for hemorrhage or large vessel infarction. MRI is pending. EKG shows sinus rhythm with mild ST elevation. Labs: WBC 4.0 (low), MCH 26.2 (low), RDW 14.9 (high), PT/INR/APTT normal, renal function stable. Plan Overview * Admit to stroke unit/telemetry for close monitoring * Maintain MAP ~108 (SBP ~150/90) with Nicardipine * Initiate dual antiplatelet therapy (aspirin + clopidogrel) for minor ischemic stroke * Start high-intensity statin (atorvastatin 80 mg) * Obtain MRI brain, MRA head/neck, and TTE * Continue neuro checks, swallow eval, PT/OT/ST involvement * DVT and GI prophylaxis * Close renal monitoring (CKD stage 3) Past Medical History Hypertension Palpitations Chronic kidney disease (unspecified) Mini-stroke (TIA) Past Surgical History: Total hip replacement Past Surgical History Bilateral hip replacement Hysterectomy Family History Non-contributory for early cardiovascular or cerebrovascular disease. Past Social History Non-smoker, no alcohol use, no illicit drug use. Lives with family. Review of Systems Review of Systems * Constitutional: No fever, chills, or weight loss. * Neuro: Positive for left facial numbness, left arm numbness, left leg weakness, headache, dizziness, slurred speech. No seizures or LOC. * CV: History of palpitations, denies current chest pain. * Respiratory: No cough, SOB, or wheezing. * GI: No nausea, vomiting, abdominal pain. * : No dysuria or hematuria. * MSK: Bilateral hip prostheses, no acute joint pain. * Skin: No rashes or lesions. * Psych: No depression or anxiety reported. Cardiovascular: Chest Pain, Palpitations, Orthopnea, Paroxysmal Noc. Dyspnea, Edema, Lt Headedness, Other Allergies: Coded Allergies: NO KNOWN ALLERGIES (Unverified , 05/31/11) Medications Current Medications Medications Dose Ordered Sig/Caren Route Start Time Stop Time Status Last Admin Dose Admin Nicardipine/ Sodium Chloride 200 ml @ 50 mls/hr Q4H IV 06/19/25 13:00 06/19/25 17:13 100 MLS/HR Sodium Chloride 1,000 ml @ 60 mls/hr [id number] IV 06/19/25 18:00 Acetaminophen 650 mg Q6HP PRN PO 06/19/25 18:00 Ondansetron HCl 4 mg Q4HP PRN IV 06/19/25 18:00 Nitroglycerin 0.4 mg Q5MINP PRN SL 06/19/25 18:00 Morphine Sulfate 2 mg Q30M PRN IV 06/19/25 18:00 Aspirin 81 mg DAILY PO 06/20/25 10:00 Atorvastatin Calcium 80 mg DAILY PO 06/19/25 18:45 Pantoprazole Sodium 40 mg DAILY IV 06/19/25 18:45 Albuterol 90 mcg Q6HPRN PRN IN 06/19/25 18:45 Ascorbic Acid 500 mg DAILY PO 06/20/25 10:00 Exam Vital Signs Vital Signs Date Time Temp Pulse Resp B/P (MAP) Pulse Ox O2 Delivery O2 Flow Rate FiO2 06/19/25 18:00 75 16 122/47 (72) 98 06/19/25 16:00 98.4 98.4 06/19/25 12:10 Room Air* 0 21 Exam Vitals: BP 136/52 (post-titration), HR 78, RR 16, Temp 98.4F, SpO? 98% RA.?General: Alert, oriented 3, NAD.?HEENT: PERRLA, no visual field deficits, mild cataract changes.?Neuro: * Mental Status: Alert, speech clear. * Cranial Nerves: * CN VII: Mild left facial sensory decrease, no motor asymmetry. * CN VIIIXII: Intact. * Motor: 5/5 strength in all extremities, no drift. * Sensory: Decreased light touch on left face, arm, leg. * Reflexes: 2+ symmetric, plantar downgoing. * Coordination: Finger-nose intact. * NIHSS: 1 (mild sensory deficit).?Cardiac: Regular rhythm, no murmurs.?Lungs: Clear to auscultation.?Abdomen: Soft, NTND.?Extremities: No edema, prosthetic hips noted.?Skin: Warm, intact. Labs/Xrays PATIENT: OCTAVIO MORRIS ACCT: [id number] UNIT: [id number] : 1950 LOC: ER ROOM / BED: / AGE / SEX: 74 / F ADM STATUS: REG ER SERVICE 1100 ORDERING PHYSICIAN: DU DANIELSON DO PROCEDURE(s): CXR1 - CHEST XRAY 1 VIEW REASON: stroke like symptoms ORDER NUMBER(s): [id number], ACCESSION NUMBER(s): [id number] XY CHEST XRAY 1 VIEW, HISTORY: stroke like symptoms COMPARISON: XY CHEST XRAY 1 VIEW on DOS: 06/15/25, XY CHEST PORTABLE on DOS: 06/12/23, CHEST PORTABLE on DOS: 12/08/22 XY CHEST XRAY 1 VIEW on DOS: 06/15/25, XY CHEST PORTABLE on DOS: 06/12/23, CHEST PORTABLE on DOS: 12/08/22 TECHNICAL DATA: 1 view of the chest was obtained. FINDINGS: Lines and tubes: None Cardiomediastinal silhouette: normal Pulmonary vasculature: normal Lung expansion: normal Lung airspace: normal Lung interstitium: normal Pleura: normal Pneumothorax: no Bones: Unremarkable Other: no IMPRESSION: No acute intrathoracic abnormality. ATED BY: JERALD OLIVEROS MD DICTATED DATE/TIME: 06/19/251127 SIGNED BY: JERALD OLIVEROS MD SIGNED DATE/TIME: 06/19/251127 CC: PATIENT: LUIS FERNANDO MORRISCCT: [id number]: [id number] : 1950 LOC: ER ROOM / BED: / AGE / SEX: 74 / F ADM STATUS: REG ER SERVICE 1100 ORDERING PHYSICIAN: DU DANIELSON DO PROCEDURE(s): CTH - STROKE CTH REASON: stroke like symptoms ORDER NUMBER(s): [id number], ACCESSION NUMBER(s): [id number] EXAM: CT STROKE CTH HISTORY: stroke like symptoms COMPARISON: CT HEAD WITHOUT CONTRAST on DOS: 06/15/25, CT HEAD WITHOUT CONTRAST on DOS: 05/18/24, HEAD WITHOUT CONTRAST on DOS: 12/08/22 TECHNIQUE: Noncontrast axial CT images of the head were performed. Sagittal and coronal reformatted images were obtained. This CT exam was performed using 1 or more of the following dose reduction techniques: Automated exposure control, adjustment of the mA and/or kv according to patient size, or the use of iterative reconstruction techniques. Radiation Dose: CTDI volume is 53.46 mGy. Dose-length product is 918.31 mGy*cm FINDINGS: No intracranial hemorrhage, mass, midline shift, hydrocephalus, or evidence of acute large vessel infarct. There is a stable prominent perivascular space along the caudal margin of the right basal ganglia. There are mucous retention cysts in the bilateral maxillary sinuses. There are bilateral jeaneth bullosa. The bilateral mastoid air cells and middle ear spaces are clear. No cranial fracture or scalp edema. IMPRESSION: 1. No acute intracranial process. 2. Bilateral maxillary sinus disease. ATED BY: CATE JONES MD DICTATED DATE/TIME: 06/19/25 112 SIGNED BY: CATE JONES MD SIGNED DATE/TIME: 06/19/25 112 CC: Labs Test 06/19/25 15:32 06/19/25 11:25 06/19/25 11:10 Range/Units Troponin I High Sensitivity 7 </=34 ng/L White Blood Count 4.0 L 4.4-10.8 10^3/uL Red Blood Count 4.94 4.0-5.20 10^6/uL Hemoglobin 12.9 12.2-16.2 g/dL Hematocrit 39.7 36.0-46.0 % Mean Corpuscular Volume 80.3 80.0-100.0 fL Mean Corpuscular Hemoglobin 26.2 L 28.0-32.0 pg Mean Corpuscular Hemoglobin Concent 32.6 32.0-36.0 g/dL Red Cell Distribution Width 14.9 H 11.8-14.3 % Platelet Count 203 140-450 10^3/uL Mean Platelet Volume 8.9 6.9-10.8 fL Neutrophils (%) (Auto) 40.9 37.0-80.0 % Lymphocytes (%) (Auto) 45.3 10.0-50.0 % Monocytes (%) (Auto) 10.1 0.0-12.0 % Eosinophils (%) (Auto) 2.8 0.0-7.0 % Basophils (%) (Auto) 0.9 0.0-2.0 % Neutrophils # (Auto) 1.6 1.6-8.6 10 ^3/uL Lymphocytes # (Auto) 1.8 0.4-5.4 10 ^3/uL Monocytes # (Auto) 0.4 0-1.3 10 ^3/uL Eosinophils # (Auto) 0.1 0-0.8 10 ^3/uL Basophils # (Auto) 0 0-0.2 10 ^3/uL Nucleated Red Blood Cells 0.2 % Prothrombin Time 10.9 9.3-11.8 sec Prothrombin Time INR 1.03 0.9-1.15 Activated Partial Thromboplast Time 24.6 24.5-34.5 SEC Sodium Level 143 136-145 mmol/L Potassium Level 3.8 3.5-5.1 mmol/L Chloride Level 109 H 98-107 mmol/L Carbon Dioxide Level 26 20-31 mmol/L Anion Gap 8 5-15 Blood Urea Nitrogen 10 9-23 mg/dL Creatinine 0.98 0.550-1.02 mg/dL Glomerular Filtration Rate Calc 61 >90 mL/min BUN/Creatinine Ratio 10.2 10.0-20.0 Serum Glucose 80 74-106 mg/dL Hemoglobin A1c 5.6 <5.7 % A1C Calcium Level 10.1 8.7-10.4 mg/dL Magnesium Level 1.9 1.6-2.6 mg/dL Total Bilirubin 0.6 0.2-1.0 mg/dL Aspartate Amino Transferase (AST) 20 13-40 U/L Alanine Aminotransferase (ALT) 14 7-40 U/L Alkaline Phosphatase 89 46-116 U/L B-Type Natriuretic Peptide 105.72 0-100 pg/mL Total Protein 6.8 5.7-8.2 g/dL Albumin 4.2 3.2-4.8 g/dL Triglycerides Level 110 < 150 mg/dL LDL Cholesterol 101 H < 100 mg/dL POC Glucose 79 70-106 mg/dl SEPSIS Sepsis Screen Date sepsis recognized/suspect: Jun 19, 2025 Time Sepsis recognized/suspect: 1153 Recent Procedure: No On Antibiotic Therapy: No Respiratory Rate >20: No Heart Rate >90: No Temp<36 C (96.8 F) or >38.3 C: No SBP <90 or MAP <65 mmHG: No New Acute Mental Status Change: No Is the patient on CPAP, BIPAP,: No Physician Orders Stroke Assessment (06/19/25 11:00) Vital Signs .PER UNIT PROTOCOL (06/19/25 11:00) Baggage Handler (06/19/25 11:00) Accurate Weight In Kg (06/19/25 11:00) Accucheck (06/19/25 11:00) Ct Head Cva (06/19/25 11:00) Chest Xray 1 View (06/19/25 11:00) * Neurology Consult (06/19/25 11:00) 2 Large Bore Ivs (20mg Or Larg (06/19/25 11:00) Nursing Dysphagia Screen (06/19/25 11:00) Neuro Checks Per Unit Protocol (06/19/25 11:00) Nicardipine Hcl In Sodium Chlo (Cardene (06/19/25 13:00) Admit (06/19/25 17:57) Code Status (06/19/25 17:57) Review Orders With Adm. (06/19/25 17:57) Encourage Activity As Tolerate (06/19/25 17:57) Npo (Nothing By Mouth) Diet (06/19/25 Dinner) Sodium Chloride 0.9% (06/19/25 18:00) Acetaminophen Tablet (Tylenol Tablet) (06/19/25 18:00) Notify Md Of Changes From Base (06/19/25 17:57) Advance Directive (06/19/25 17:57) Abdomen 2 View (06/19/25 17:57) Echo 2d Mode Cardiac Dop (06/19/25 17:57) Urinalysis (06/19/25 17:57) Lipid Panel (06/19/25 17:57) Patient Condition (06/19/25 17:57) Allergies (06/19/25 17:57) Ondansetron Hcl (Zofran) (06/19/25 18:00) Drug Screen (06/19/25 17:57) Sequential Compression Device (06/19/25 ) Nitroglycerin Sublingual (Ntrostat Subli (06/19/25 18:00) Morphine Sulfate Injection (06/19/25 18:00) Oxygen By Nasal Cannula (06/19/25 17:57) Stat Ekg For Chest Pain (06/19/25 17:57) Notify Md Of Changes From Base (06/19/25 17:57) Market Development Trainer For 24 Hours (06/19/25 17:57) Emergency Dysrhythmia Protocol (06/19/25 17:57) Rhythm Strips Once Every Shift (06/19/25 17:57) Neuro Checks Q2hrs Q4HR (06/19/25 17:57) Angio Head/Neck (06/19/25 17:57) Communication Order (06/19/25 18:26) Speech Evaluation (06/19/25 18:26) Pt Request For Service (06/19/25 18:26) Market Development Trainer (06/19/25 18:26) Aspirin Tablet (06/20/25 10:00) Atorvastatin (Lipitor) (06/19/25 18:45) Pantoprazole (Protonix) (06/19/25 18:45) Complete Blood Count (06/20/25 04:00) PTPTT (06/19/25 18:31) Prothrombin Time W/ Inr (06/19/25 18:31) Abdomen Complete Sonogram (06/19/25 18:31) Comprehensive Metabolic Panel (06/20/25 04:00) Albuterol Inhaler (Ventolin Hfa) (06/19/25 18:45) Ascorbic Acid Tablet (Vitamin C Tablet) (06/20/25 10:00) Vital Signs Date Time Temp Pulse Resp B/P (MAP) Pulse Ox O2 Delivery O2 Flow Rate FiO2 06/19/25 18:00 75 16 122/47 (72) 98 06/19/25 17:45 74 16 126/49 (74) 98 06/19/25 17:30 75 16 118/48 (71) 98 06/19/25 17:15 75 16 119/53 (75) 98 06/19/25 17:13 141/56 7 17:00 71 16 141/56 (84) 98 06/19/25 17:00 141/56 06/19/25 16:45 74 16 141/55 (83) 98 06/19/25 16:30 76 16 136/53 (80) 98 06/19/25 16:15 74 16 129/51 (77) 98 06/19/25 16:00 98.4 75 16 136/52 (80) 98 98.4 06/19/25 16:00 136/52 06/19/25 15:45 75 16 124/51 (75) 98 06/19/25 15:30 75 16 124/52 (76) 98 06/19/25 15:15 74 16 131/52 (78) 98 06/19/25 15:00 128/48 06/19/25 15:00 78 16 130/48 (75) 98 06/19/25 14:45 75 16 125/48 (73) 98 06/19/25 14:33 71 06/19/25 14:30 127/51 06/19/25 14:30 75 16 127/51 (76) 98 06/19/25 14:15 77 16 133/58 (83) 98 06/19/25 14:00 79 16 137/59 (85) 98 06/19/25 13:45 80 16 128/55 (79) 98 06/19/25 13:30 77 16 163/62 (95) 98 06/19/25 13:30 163/62 06/19/25 13:15 183/64 06/19/25 13:15 74 16 183/64 (103) 98 06/19/25 13:09 70 196/74 06/19/25 13:05 196/74 06/19/25 13:00 66 16 196/74 (114) 98 06/19/25 12:45 64 16 208/80 (122) 98 06/19/25 12:42 64 208/80 06/19/25 12:30 63 16 219/78 (125) 98 06/19/25 12:17 67 230/83 06/19/25 12:15 60 16 230/83 (132) 98 06/19/25 12:10 98 Room Air* 0 21 06/19/25 12:04 59 06/19/25 12:00 60 16 239/79 (132) 98 06/19/25 11:51 64 16 98 Room Air* 0 21 06/19/25 11:45 67 16 204/67 (112) 98 06/19/25 11:42 60 225/75 06/19/25 11:30 58 16 225/75 (125) 98 06/19/25 11:28 59 06/19/25 11:15 56 16 212/52 (105) 98 06/19/25 11:00 97.7 63 16 225/112 (149) 98 97.7 Laboratory Tests Test 06/19/25 11:25 White Blood Count 4.0 10^3/uL (4.4-10.8) L Medications Medications Dose Ordered Sig/Caren Route Start Time Stop Time Status Last Admin Dose Admin Labetalol HCl 5 mg ONCE ONCE IV 06/19/25 11:30 06/19/25 11:31 DC 06/19/25 11:42 5 MG Labetalol HCl 10 mg ONCE ONCE IV 06/19/25 12:15 06/19/25 12:16 DC 06/19/25 12:17 10 MG Nicardipine/ Sodium Chloride 200 ml @ 50 mls/hr Q4H IV 06/19/25 13:00 06/19/25 17:13 100 MLS/HR Assessment/Plan Assessment/Plan Acute Ischemic Stroke mild (NIHSS 1) with left-sided sensory deficits; CT negative, MRI pending. Hypertensive Emergency SBP >220 with end-organ neuro involvement. Hyperlipidemia Chronic Kidney Disease (unspecified stage) monitor renal function during antihypertensive therapy. History of TIA increases recurrence risk. Headache (likely secondary to uncontrolled HTN) Status post bilateral hip replacement History of coma secondary to pneumonia Treatment Plan ([facility]) Neurology Admit to stroke/telemetry unit Neuro checks q1h MRI brain with DWI, MRA head/neck Neurology consult PT/OT/ST evaluations Keep NPO until swallow evaluation is completed Medications Aspirin 325 mg PO once (or MN if NPO), then 81 mg daily Clopidogrel 300 mg PO loading dose, then 75 mg PO daily 21 days (dual antiplatelet therapy) Atorvastatin 80 mg PO nightly Continue Nicardipine drip titrated to maintain MAP ~108 (SBP ~150/90) IV fluids: NS at 50 mL/hr (CKD3, monitor I/O, avoid overload) Cardiovascular Continuous telemetry TTE with bubble study Monitor for arrhythmias Renal Daily BMP, strict I/O Avoid nephrotoxic drugs Prophylaxis DVT: Heparin 5000 units SQ q8h GI: Pantoprazole 40 mg PO daily Aspiration precautions: HOB >30, swallow eval Case discussed in detail with the attending physician, including the clinical presentation, diagnostic workup, and comprehensive management plan. The patient was present for the discussion and demonstrated understanding of her condition and the proposed plan. She verbally consented to hospital admission and agreed to the outlined evaluation and treatment strategies, including imaging, labs, medications, specialist consultations, and supportive care. Plan discussed with: Patient My Orders Orders - SACHA CLAY RESIDENT Procedure Category Date Status Time Admit ADMIT 06/19/25 Transmitted 17:57 Code Status CODE 06/19/25 Transmitted 17:57 Review Orders With SAEED 06/19/25 In Process Adm. 17:57 Encourage Activity As SAEED 06/19/25 In Process Tolerate 17:57 Npo (Nothing By DIET 06/19/25 Transmitted Mouth) Diet Dinner Sodium Chloride 0.9% PHA 06/19/25 In Process 18:00 Acetaminophen Tablet PHA 06/19/25 In Process (Tylenol Tablet) 18:00 Notify Of Changes BANNER 06/19/25 In Process From Base 17:57 Advance Directive BANNER 06/19/25 In Process 17:57 Abdomen 2 View XY 06/19/25 Logged 17:57 Echo 2d Mode Cardiac US 06/19/25 Logged DOP 17:57 Urinalysis LAB 06/19/25 Logged 17:57 Lipid Panel LAB 06/19/25 In Process 17:57 Patient Condition ORDERS 06/19/25 Transmitted 17:57 Allergies SAEED 06/19/25 In Process 17:57 Ondansetron Hcl PHA 06/19/25 In Process (Zofran) 18:00 Drug Screen LAB 06/19/25 Logged 17:57 Sequential SAEED 06/19/25 In Process Compression Device Nitroglycerin PHA 06/19/25 In Process Sublingual (Ntrostat 18:00 Morphine Sulfate PHA 06/19/25 In Process Injection 18:00 Oxygen By Nasal RT 06/19/25 Transmitted Cannula 17:57 Stat Ekg For Chest SAEED 06/19/25 In Process Pain 17:57 Notify Of Changes BANNER 06/19/25 In Process From Base 17:57 Market Development Trainer For BANNER 06/19/25 In Process 24 Hours 17:57 Emergency Dysrhythmia BANNER 06/19/25 In Process Protocol 17:57 Rhythm Strips Once BANNER 06/19/25 In Process Every Shift 17:57 Neuro Checks Q2hrs BANNER 06/19/25 In Process 17:57 Angio Head/Neck CT 06/19/25 Logged 17:57 Communication Order ORDERS 06/19/25 Transmitted 18:[address] 06/19/25 Logged 18:26 Pt Request For Service PT 06/19/25 Logged 18:26 Market Development Trainer ORDERS 06/19/25 Transmitted 18:26 Aspirin Tablet PHA 06/20/25 In Process 10:00 Atorvastatin (Lipitor) PHA 06/19/25 In Process 18:45 Pantoprazole PHA 06/19/25 In Process (Protonix) 18:45 Complete Blood Count LAB 06/20/25 Verified 04:00 PTPTT LAB 06/19/25 Logged 18:31 Prothrombin Time W/ LAB 06/19/25 Logged INR 18:31 Abdomen Complete US 06/19/25 Logged Sonogram 18:31 Comprehensive LAB 06/20/25 Verified Metabolic Panel 04:00 Albuterol Inhaler PHA 06/19/25 In Process (Ventolin Hfa) 18:45 Ascorbic Acid Tablet PHA 06/20/25 In Process (Vitamin C Tablet) 10:00 Common Visit Codes: 19477-[id number] INP/OBS CARE (HIGH) Secondary Visit Codes: 89938-HMOZQERV CARE PLAN 30 MINUTES SACHA CLAY RESIDENT Jun 19, 2025 18:58
--- NOTE | 2025-06-19 19:50 | DVH ---
INDICATION: evaluate for acute cholecystitis TECHNIQUE: Multiple real-time sonographic images were obtained of the right upper quadrant. COMPARISON: None FINDINGS: The liver demonstrates homogeneous echotexture without focal mass lesions. The liver measu res 13.6 cm. There is no intrahepatic or extrahepatic ductal dilatation. The common duct measures 0.2 cm. Gallbladder polyp is present measuring 0.5 cm. The gallbladder wall measures 0.3 cm and is within nor mal limits. The right kidney measures 7.5 cm. The right kidney is normal in contour, size, and shape. The echogen icity is normal. There is no hydronephrosis. The pancreas is not well visualized due to overlying bowel gas. IMPRESSION: No acute findings. Gallbladder polyp is present measuring 0.5 cm. FOLLOW UP RECOMMENDATIONS: Low-risk polyps (pedunculated with a thick or wide stalk, or sessile): < 6 mm: no follow-up 7-9 mm follow-up ultrasound at 12 months 10-14 mm: follow-up ultrasound at 6, 12, 24, and 36 months vs surgical consult > 15 mm: surgical consult Rosaline Bravo, Marc Torres, Abraham Perkins et al. Management of Incidentally Detected Gallbladder Polyps: Society of Radiologists in Ultrasound Consensus Conference Recommendations. Radiology. 2021;:[id number].
[2025-06-19 21:00] VITALS: O2SAT 94
[2025-06-19] MEDS: CLOPIDOGREL BISULFATE 75 MG TAB PO ONE (21:14)
--- NOTE | 2025-06-19 21:16 | DVH ---
Exam: XY KUB ABDOMEN SINGLE VIEW Indication: EVALUTE FOR SBO Comparison: None Technique: Single radiographic views of the abdomen. Findings: Nonobstructive bowel gas pattern noted. There is no definite evidence for pneumoperitoneum. No abnormal calcifications noted. Hardware within the bilateral hips status post arthroplasty. Impression: 1. Nonobstructive bowel gas pattern noted.
--- NOTE | 2025-06-19 21:32 | DVH ---
Carotid Duplex Clinical History: cva Comparison: None Technique: Duplex Doppler evaluation of the extracranial carotid and vertebral arteries including color Doppler and spectral/pulsed waveform analysis was performed. Findings: RIGHT SIDE: The peak systolic velocities are 107 cm/s in the CCA, 178 cm/s in the ICA. The ICA/CCA ratio is 1.7. The external carotid artery is patent with peak systolic velocity of 271 cm/s proximally. There is appropriate antegrade flow in the right vertebral artery. Calcified plaque within the carotid bulb, ICA and ECA. LEFT SIDE: The peak systolic velocities are 97 cm/s in the CCA, 165 cm/s in the ICA. The ICA/CCA ratio is 1.7. The external carotid artery is patent with peak systolic velocity of 237 cm/s proximally. There is appropriate antegrade flow in the left vertebral artery. Calcified plaque within the carotid bulb, ICA and ECA. IMPRESSION: 1. Estimated 50-69% stenosis of the right carotid system. 2. Estimated 50-69% stenosis of the left carotid system. Reference: Radiology 2003; 229:340-346 Normal ICA PSV is <125 cm/sec and no plaque or intimal thickening is visible sonographically additional criteria include ICA/CCA PSV ratio <2.0 and ICA EDV <40 cm/sec <50% ICA stenosis ICA PSV is <125 cm/sec and plaque or intimal thickening is visible sonographically additional criteria include ICA/CCA PSV ratio <2.0 and ICA EDV <40 cm/sec 50-69% ICA stenosis ICA PSV is 125-230 cm/sec and plaque is visible sonographically additional criteria include ICA/CCA PSV ratio of 2.0-4.0 and ICA EDV of 40-100 cm/sec 70% ICA stenosis but less than near occlusion ICA PSV is >230 cm/sec and visible plaque and luminal narrowing are seen at villalobos-scale and color Dopp ler ultrasound (the higher the Doppler parameters lie above the threshold of 230 cm/sec, the greater the likelihood of severe disease) additional criteria include ICA/CCA PSV ratio >4 and ICA EDV >100 cm/sec
[2025-06-19 21:36] VITALS: BP 123/46; PULSE 75; RESP 15; TEMP 98.5; O2SAT 94
[2025-06-19] MEDS ORDERED: ALBUTEROL SULF 2.5 MG/0.5ML(0.5%) NEB SOLN NEB PRN (22:00)
[2025-06-19] MEDS: LOSARTAN POTASSIUM 25 MG TAB PO ONE (22:44)
[2025-06-20] VITALS (12 sets, daily range): BP systolic 127–158; BP diastolic 46–80; PULSE 64–75; RESP 15–20; TEMP 97.2–98.1; O2SAT 95–99
[2025-06-20 01:13] LABS: Urine Protein, UAD Negative (Negative)
[2025-06-20 02:05] LABS: Amphetamine Screen, Urine Neg (NEGATIVE); Barbiturate Scree,Urine Neg (NEGATIVE); Benzodiazephine Screen, Urine Neg (NEGATIVE); Cannabinoid Screen, Urine Neg (NEGATIVE); Cocaine Screen, Urine Neg (NEGATIVE); Opiate Scree,Urine Neg (NEGATIVE); Phencyclidine Screen, Urine Neg (NEGATIVE)
[2025-06-20] MEDS: ACETAMINOPHEN 325 MG TAB PO PRN (04:11)
[2025-06-20 09:18] LABS: Hematocrit 43.7 % (36.0-46.0); Hemoglobin 14.4 g/dL (12.2-16.2); Mean Corpuscular Hemoglobin 26.6 pg (28.0-32.0); Mean Corpuscular Volume 80.7 fL (80.0-100.0); Nucleated Red Blood Cells % 0.5 %
[2025-06-20 09:34] LABS: Alanine Aminotransferase 15 U/L (7-40); Albumin 4.7 g/dL (3.2-4.8); Alkaline Phosphatase 101 U/L (46-116); Anion Gap 12 (5-15); BUN/Creatinine Ratio 9.4 (10.0-20.0); Carbon Dioxide 24 mmol/L (20-31); Chloride 105 mmol/L (98-107); Glucose 85 mg/dL (74-106); Sodium 141 mmol/L (136-145); Total Protein 7.6 g/dL (5.7-8.2)
[2025-06-20 09:35] LABS: Bilirubin, Total 1.0 mg/dL (0.2-1.0)
--- NOTE | 2025-06-20 09:39 | DVH ---
MRI BRAIN HEAD WO CONTRAST INDICATION: Rule out stroke EXAM DATE: 06/20/2025 07:59 AM COMPARISON: MRI BRAIN HEAD WO CONTRAST on DOS: 05/19/24 PROCEDURE: Using a 1.5 Yeny scanner, multisequence multiplanar imaging of the brain was obtained. FINDINGS: The brainshows normal morphology and signal characteristics. No abnormal T2 hyperintensity, diffusion restriction, or susceptibility hypointensity is present. The ventricles are normal in size . The midline structures are intact. The major intracranial flow voids are present. The aerated space s are normal. The orbital contents and extracranial soft tissues appear normal. IMPRESSION: No acute abnormal MRI findings of the brain.
[2025-06-20 09:40] LABS: Blood Urea Nitrogen 8 mg/dL (9-23); Calcium 10.5 mg/dL (8.7-10.4); Potassium 3.4 mmol/L (3.5-5.1)
[2025-06-20] MEDS: CLOPIDOGREL BISULFATE 75 MG TAB PO SCH (09:57)
[2025-06-20] MEDS: ASCORBIC ACID 500 MG TAB PO SCH (09:57)
[2025-06-20] MEDS: LOSARTAN POTASSIUM 25 MG TAB PO SCH (09:58)
[2025-06-20] MEDS ORDERED: CLOPIDOGREL BISULFATE 75 MG TAB PO SCH (10:00)
--- NOTE | 2025-06-20 13:42 | DVHPNRES ---
Progress Note Date Seen: Jun 20, 2025 Resident Creating Document: ROLY ROBISON RESIDENT Has the PT tested + for MRSA If YES, has PT been informed?: No Medical Necessity Reason Pt with a Central, PICC or Fol: No Subjective Review of Systems This is a 74-year-old female presenting to the ED with acute left facial numbness and slurred speech lasting 1 hour. She also reports left arm tingling and left lower extremity weakness/numbness one week prior that partially improved. She has had morning headaches for 2 weeks and intermittent dizziness when ambulating. On admission, she was found to be in hypertensive emergency (BP 220/110). She received Labetalol 5 mg IV, then 10 mg IV, lowering BP to 192/88. She was started on a Nicardipine drip (10 mg/hr) and BP stabilized to 136/52. Currently, she is alert, oriented, and able to ambulate but reports residual left-sided sensory changes. CT head was negative for hemorrhage or large vessel infarction. MRI is pending. EKG shows sinus rhythm with mild ST elevation. Labs: WBC 4.0 (low), MCH 26.2 (low), RDW 14.9 (high), PT/INR/APTT normal, renal function stable. Patient was admitted for further assessment and management of possible acute ischemic stroke. Patient seen and examined at bedside. Patient states that left upper and lower extremities has been regaining force but still minimally weak compared to the right side. Patient stated that symptoms has been improving compared to admission. Muscles of the face looks symmetric and equal in force. Sensory garcia there is decreased sensation in the left lower aspect of the face compared to the right. The patient has no fever/chills, chest pain, shortness of breath or any other associated symptoms. We will continue the patient on atorvastatin 80 mg daily, aspirin 81 mg daily and clopidogrel [address] of the head and brain MRI both came back grossly unremarkable. We will discuss the case with neurologist since nine bilateral carotid Doppler ultrasound showed 50-69% stenosis bilaterally. Meanwhile we will continue current medical management. Blood pressure has been on normal range. ROS Constitutional: Denies weight loss, fever and chills. HEENT: Denies changes in vision and hearing. Respiratory: Denies shortness of breath and cough Cardiovascular: Denies chest discomfort or palpitations GI: Denies abdominal pain, nausea, vomiting and diarrhea. : Denies dysuria and urinary frequency. Musculoskeletal: Denies myalgias and joint pain Skin: Denies rash and pruritus. Neurological: Denies dizziness, headache, vision or hearing problems Objective vital signs Vital Sign Date Time Temp Pulse Resp B/P (MAP) Pulse Ox O2 Delivery O2 Flow Rate FiO2 06/20/25 13:00 69 19 158/57 (90) 96 06/20/25 10:00 Room Air* 0 21 06/20/25 05:00 97.9 97.9 Total Intake and Output 06/19/25 06/19/25 06/20/25 15:00 23:00 07:00 Intake Total 100 ml 400 ml Balance 100 ml 400 ml medications Current Medications Medications Dose Ordered Sig/Caren Route Start Time Stop Time Status Last Admin Dose Admin Sodium Chloride 1,000 ml @ 60 mls/hr [id number] IV 06/19/25 18:00 06/19/25 18:58 60 MLS/HR Acetaminophen 650 mg Q6HP PRN PO 06/19/25 18:00 06/20/25 13:09 650 MG Ondansetron HCl 4 mg Q4HP PRN IV 06/19/25 18:00 Nitroglycerin 0.4 mg Q5MINP PRN SL 06/19/25 18:00 Morphine Sulfate 2 mg Q30M PRN IV 06/19/25 18:00 Aspirin 81 mg DAILY PO 06/20/25 10:00 06/20/25 09:57 81 MG Atorvastatin Calcium 80 mg DAILY PO 06/19/25 18:45 06/19/25 18:57 80 MG Pantoprazole Sodium 40 mg DAILY IV 06/19/25 18:45 06/20/25 09:56 40 MG Albuterol 90 mcg Q6HPRN PRN IN 06/19/25 18:45 Cancel Ascorbic Acid 500 mg DAILY PO 06/20/25 10:00 06/20/25 09:57 500 MG Clopidogrel Bisulfate 75 mg DAILY PO 06/20/25 10:00 07/08/25 09:59 06/20/25 09:57 75 MG Albuterol 2.5 mg Q6HPRN PRN NEB 06/19/25 22:00 Amlodipine Besylate 10 mg DAILY PO 06/20/25 10:00 06/20/25 09:58 10 MG Losartan Potassium 25 mg DAILY PO 06/20/25 10:00 06/20/25 09:58 25 MG Examination Physical Examination General: Patient alert and oriented in person, place and time. Patient following commands. HEENT: Normocephalic, atraumatic, moist mucous membranes Respiratory/pulmonary: Clear lungs bilaterally, vesicular murmurs present in almost all lung martinez, no associated crackles or wheezes. Cardiovascular: Normal heart sounds S1 and S2 with no associated murmurs Abdomen: Abdomen nondistended, there is no pain to palpation in any of the abdominal quadrants, no palpable masses. Extremities: There is no peripheral edema present at the lower extremities. Skin: No rashes or pruritus, there is no sacral edema present at this time. Neurological: There is left upper and lower extremity weakness compared to right side but patient status improving compared to admission. There is also decrease of sensation in the lower aspect of the left face compared to the right. Otherwise, cranial nerves unremarkable. laboratory and microbiology Laboratory Tests 06/20/25 08:50 Test 06/20/25 08:50 Range/Units Serum Glucose 85 74-106 mg/dL Problem List/Assessment/Plan Problem List/Assessment/Plan Assessment/plan Possible acute ischemic stroke, mild (NIHSS 1) with left-sided motor weakness and mild sensory decreased in left lower side of the face Hypertensive emergency Hypokalemia Dyslipidemia Acute tension headache likely in the setting of uncontrolled hypertension Status post bilateral hip replacement History of, secondary to bacterial pneumonia Plan -CT of the head was grossly unremarkable -MRI of the brain grossly unremarkable -bilateral carotid Doppler ultrasound showed bilateral stenosis of 50-69% on both carotid systems -neurology on board -continue aspirin 81 mg daily -continue atorvastatin 80 mg daily -continue clopidogrel 75 mg for 21 days -maintain blood pressure -continue amlodipine 10 mg daily and losartan 25 mg daily -we will monitor for symptom resolution in the next 24 hours Goals of care discussed with the patient at bedside for >35min, full code Plan discussed with Dr. Vallejo Plan discussed with: Patient My Orders My Orders Orders - ROLY ROBISON Procedure Category Date Status Time Cardiac DIET 06/20/25 Transmitted Diet-2gna,Lofat,Lochol Lunch Date of Service: Jun 20, 2025 Billing Provider: GOPI BANKS MD Common Visit Codes: [id number] INP/OBS CARE(HIGH) ROLY ROBISON Jun 20, 2025 13:42 GOPI BANKS MD Jun 24, 2025 01:43
[2025-06-20] MEDS: POTASSIUM EFFERVESENT TAB 25 MEQ PO ONE (16:04)
--- NOTE | 2025-06-20 21:44 | DVHPN2 ---
Progress Note - Dictate Date Seen: Jun 20, 2025 Has the PT tested + for MRSA If YES, has PT been informed?: No Medical Necessity Reason Pt with a Central, PICC or Fol: No Subjective Ms. Chavis is a 74 years old right-handed female with a history of obesity, anxiety, depression, hypertension, OAS. She came to the hospital on06/19/25 with a chief complaint of facial numbness with associated slurred speech as of X1 hour I saw her in 03/14/2017 for acute stroke syndrome (negative MRI ), 12/31/2017 for ALOC, 05/19/2024 for facial numbness I have seen and examined the patient, talked to her nurse, voice is fine, but she still has numbness in the left face, arm than leg. On physical examination, she has general weakness, with muscle power 4/5 in all her extremities Urinalysis, 06/19/2025: WBC: 4, urine leukocyte esterase: Trace UDS, 06/19/2025: Negative WBC/HB/PLT/MCV,: 4/12.9/203/80.3 CMP, 06/19/25: Unremarkable TG/CH OL/LDL/HDL, 02/2017:68/182/108/68. 06/12/2023: 122/248/148/74, 06/19/2025: 110/195/101/61 HST III, 09/2017: AHI: 5.1. CPAP 10 cmHO2 was recommended Carotid Doppler, 06/19/2025: 1. Estimated 50-69% stenosis of the right carotid system. 2. Estimated 50-69% stenosis of the left carotid system. CT head, 12/29/17: 1. No intracranial hemorrhage or acute intracranial abnormality. 2. MRI may be considered for further evaluation as clinically warranted. 3. Acute chronic inflammatory changes of the paranasal sinuses. CT head 06/19/2025: 1. No acute intracranial process. 2. Bilateral maxillary sinus disease MRI brain, 03/15/17: 1. No evidence of acute infarct. 2. A few scattered foci of T2 / FLAIR hyperintensity in the supratentorial white matter which are nonspecific and can be seen with mild form of chronic microvascular ischemic disease MR head, 12/31/2017: 1. No evidence of acute ischemia. 2. A few foci of increased T2 weighted/FLAIR signal intensity in the deep white matter, nonspecific in appearance though perhaps reflective of complicated migraines, hypertensive microvascular ischemic disease, or sequela from prior traumatic or inflammatory insults MRI head, 05/19/2024: No acute intracranial abnormality MRI headache, 06/20/2025: No acute abnormal MRI findings of the brain vital signs Vital Sign Date Time Temp Pulse Resp B/P (MAP) Pulse Ox O2 Delivery O2 Flow Rate FiO2 06/20/25 21:00 98.1 75 18 129/72 (91) 97 98.1 06/20/25 19:14 Room Air 0.0 06/20/25 19:14 21 Total Intake and Output 06/19/25 06/19/25 06/20/25 15:00 23:00 07:00 Intake Total 100 ml 400 ml 0 ml Balance 100 ml 400 ml 0 ml medications Current Medications Medications Dose Ordered Sig/Caren Route Start Time Stop Time Status Last Admin Dose Admin Sodium Chloride 1,000 ml @ 60 mls/hr [id number] IV 06/19/25 18:00 06/20/25 16:05 60 MLS/HR Acetaminophen 650 mg Q6HP PRN PO 06/19/25 18:00 06/20/25 13:09 650 MG Ondansetron HCl 4 mg Q4HP PRN IV 06/19/25 18:00 Nitroglycerin 0.4 mg Q5MINP PRN SL 06/19/25 18:00 Morphine Sulfate 2 mg Q30M PRN IV 06/19/25 18:00 Aspirin 81 mg DAILY PO 06/20/25 10:00 06/20/25 09:57 81 MG Pantoprazole Sodium 40 mg DAILY IV 06/19/25 18:45 06/20/25 09:56 40 MG Albuterol 90 mcg Q6HPRN PRN IN 06/19/25 18:45 Cancel Ascorbic Acid 500 mg DAILY PO 06/20/25 10:00 06/20/25 09:57 500 MG Clopidogrel Bisulfate 75 mg DAILY PO 06/20/25 10:00 07/08/25 09:59 06/20/25 09:57 75 MG Albuterol 2.5 mg Q6HPRN PRN NEB 06/19/25 22:00 Amlodipine Besylate 10 mg DAILY PO 06/20/25 10:00 06/20/25 09:58 10 MG Losartan Potassium 25 mg DAILY PO 06/20/25 10:00 06/20/25 09:58 25 MG Atorvastatin Calcium 80 mg HS PO 06/20/25 22:00 objective General: the patient is well developed and nourished. No acute distress. MENTAL STATUS: Awake and alert. Oriented to person, place, time and general circumstances. Able to give personal history. The patient is aware of recent events SPEECH, LANGUAGE, HIGHER CORTICAL FUNCTION: no aphasia or dysathria. CRANIAL NERVES: Pupils are equal, round and reactive. EOMs full and conjugate. No nystagmus. Diminished sense to pinprick and light touch in the left face. Mandibular strength intact. Facial muscles symmetrical and strength intact. SENSATION: Sensation to touch and pinprick is diminished in the left arm the leg MOTOR: Normal tone in the upper and lower extremity. Normal muscle bulk. No fasciculations. No abnormal movements or posturing. Muscle strength of the major groups in the extremities is 4/5 . REFLEXES: Deep tendon reflexes normal and symmetrical. No pathological reflexes. CEREBELLAR/COORDINATION: Finger to nose and heel to rogel are normal bilaterally. GAIT/STATION: deferred laboratory and microbiology Laboratory Tests 06/20/25 08:50 Test 06/20/25 08:50 Range/Units Serum Glucose 85 74-106 mg/dL Problem List Left-sided paresthesia, right facial paresthesia, left-sided weakness, TIA ? Acute stroke syndrome ? Psychogenic/anxiety Obstructive sleep apnea Anxiety Assessment/Plan Monitoring Supportive treatment Telemetry Echocardiogram Plavix 75 mg daily for 21 days Aspirin 81 mg daily Lipitor 80 mg daily APAP in the hospital Weight control EDS precaution discussed Follow with me on discharge This medical document was created using an electronic medical record system with [employer] dictation system. Although this document has been carefully reviewed, there may still be some phonetic and typographical errors. These areas are purely typographical due to imperfections of the software programs, and do not reflect any compromise in the patient's medical care. Plan discussed with: Patient, Other Prognosis poor Plan discussed with: Patient, Other DANIELA SALOMON MD Jun 20, 2025 21:44
[2025-06-20] MEDS: ATORVASTATIN 20 MG TAB PO SCH (22:08)
[2025-06-21] VITALS (12 sets, daily range): BP systolic 114–146; BP diastolic 48–79; PULSE 68–79; RESP 16–19; TEMP 97.9–98.4; O2SAT 95–99
[2025-06-21 05:57] LABS: Hemoglobin 14.2 g/dL (12.2-16.2)
[2025-06-21 05:59] LABS: Hematocrit 42.2 % (36.0-46.0); Mean Corpuscular Hemoglobin 26.6 pg (28.0-32.0); Mean Corpuscular Volume 79.2 fL (80.0-100.0); Nucleated Red Blood Cells % 0.0 %
[2025-06-21 06:09] LABS: Anion Gap 9 (5-15); Carbon Dioxide 24 mmol/L (20-31); Chloride 106 mmol/L (98-107); Potassium 3.7 mmol/L (3.5-5.1); Sodium 139 mmol/L (136-145)
[2025-06-21 06:10] LABS: Calcium 10.7 mg/dL (8.7-10.4)
[2025-06-21 06:15] LABS: BUN/Creatinine Ratio 10.9 (10.0-20.0); Blood Urea Nitrogen 10 mg/dL (9-23); Glucose 90 mg/dL (74-106)
--- NOTE | 2025-06-21 15:54 | DVHSR ---
APPROVED REPORT EXAM: Two-dimensional and M-mode echocardiogram with Doppler and color Doppler. Blood Pressure: 143/46 mmHg INDICATION Evaluate for cardiac influence on stroke RISK FACTORS Height: 5', Weight: 175 DIMENSIONS LVDd3.9 (3.8-5.7cm)LA (2D)3.2 (1.9-4.0cm)Aortic Root3.0 (2.0-3.7cm) LVDs2.4 (2.5-4.0cm)LA (MM) (1.9-4.0cm)Aortic Cusp Exc1.6 (1.5-2.0cm) EF (%) 70.0 (55-70%)Rt. Atrium3.3 (1.9-4.0cm)Asc. Aorta cm IVSd1.4 (0.7-1.1cm)RV (D) (1.8-2.4cm) PWd1.3 (0.7-1.1cm) Mitral Valve MitralMitral Stenosis E wave0.70m/sMV Mean GR.mmHg A wave1.00m/sMV Peak GR.mmHg E/A ratio0.72D MVAcm2 Aortic Valve Aortic ValveAortic Stenosis V11.20m/Chaz Mean GR.4mmHg V21.40m/Chaz Peak GR.8mmHg LVOT Diameter1.8 (1.8-2.4cm)Doppler AVA2.18cm2 Tricuspid Valve TR Velocity2.70m/s [id number] Conclusion Technically good study. Sinus rhythm. Left atrial enlargement. Concentric LVH. Aortic root enlargement. Valves are normal. EF of 65%. Mild TR. Impaired diastolic relaxation. No pericardial effusion masses or vegetations discernible.
[2025-06-21] MEDS ORDERED: ATOR20TA50 PO (16:48)
[2025-06-21] MEDS ORDERED: CLOP75TA70 PO (16:48)
[2025-06-21] MEDS ORDERED: ASPI-325 PO (16:48)
--- NOTE | 2025-06-21 17:51 | DVHDSRES ---
Discharge Summary Date of Admission Resident Creating Document: SACHA CLAY AISHWARYA RESIDENT Jun 19, 2025 at 17:57 Date of Discharge: Jun 21, 2025 Admitting Diagnosis Acute Ischemic Stroke mild (NIHSS 1) with left-sided sensory deficits Hypertensive Emergency SBP >220 with end-organ neuro involvement. Hyperlipidemia Chronic Kidney Disease (unspecified stage) monitor renal function during antihypertensive therapy. History of TIA increases recurrence risk. Headache (likely secondary to uncontrolled HTN) Status post bilateral hip replacement History of coma secondary to pneumonia Labs/Diagnostic Data: Laboratory Results Test 06/21/25 04:41 06/20/25 08:50 06/19/25 23:40 06/19/25 22:12 White Blood Count 5.0 10^3/uL (4.4-10.8) Red Blood Count 5.33 10^6/uL (4.0-5.20) Hemoglobin 14.2 g/dL (12.2-16.2) Hematocrit 42.2 % (36.0-46.0) Mean Corpuscular Volume 79.2 fL (80.0-100.0) Mean Corpuscular Hemoglobin 26.6 pg (28.0-32.0) Mean Corpuscular Hemoglobin Concent 33.6 g/dL (32.0-36.0) Red Cell Distribution Width 15.0 % (11.8-14.3) Platelet Count 215 10^3/uL (140-450) Mean Platelet Volume 8.4 fL (6.9-10.8) Neutrophils (%) (Auto) 56.7 % (37.0-80.0) Lymphocytes (%) (Auto) 30.0 % (10.0-50.0) Monocytes (%) (Auto) 9.6 % (0.0-12.0) Eosinophils (%) (Auto) 3.0 % (0.0-7.0) Basophils (%) (Auto) 0.7 % (0.0-2.0) Neutrophils # (Auto) 2.8 10 ^3/uL (1.6-8.6) Lymphocytes # (Auto) 1.5 10 ^3/uL (0.4-5.4) Monocytes # (Auto) 0.5 10 ^3/uL (0-1.3) Eosinophils # (Auto) 0.2 10 ^3/uL (0-0.8) Basophils # (Auto) 0 10 ^3/uL (0-0.2) Nucleated Red Blood Cells 0.0 % Sodium Level 139 mmol/L (136-145) Potassium Level 3.7 mmol/L (3.5-5.1) Chloride Level 106 mmol/L (98-107) Carbon Dioxide Level 24 mmol/L (20-31) Anion Gap 9 (5-15) Blood Urea Nitrogen 10 mg/dL (9-23) Creatinine 0.92 mg/dL (0.550-1.02) Glomerular Filtration Rate Calc 66 mL/min (>90) BUN/Creatinine Ratio 10.9 (10.0-20.0) Serum Glucose 90 mg/dL (74-106) Calcium Level 10.7 mg/dL (8.7-10.4) Total Bilirubin 1.0 mg/dL (0.2-1.0) Aspartate Amino Transferase (AST) 21 U/L (13-40) Alanine Aminotransferase (ALT) 15 U/L (7-40) Alkaline Phosphatase 101 U/L (46-116) Total Protein 7.6 g/dL (5.7-8.2) Albumin 4.7 g/dL (3.2-4.8) Urine Color Colorless (Yellow) Urine Clarity Clear (Clear) Urine pH 7.0 (5.0-9.0) Urine Specific [place] 1.010 (1.001-1.035) Urine Protein Negative (Negative) Urine Ketones Negative (Negative) Urine Blood Negative /uL (Negative) Urine Nitrite Negative (Negative) Urine Bilirubin Negative (Negative) Urine Urobilinogen Normal mg/dL (Negative) Urine Leukocyte Esterase Trace /uL (Negative) Urine RBC <1 /hpf (0 - 4) Urine Microscopic WBC 4 /HPF (0-5) Urine Squamous Epithelial Cells Few /hpf (<5) Urine Bacteria None seen /hpf (None Seen) Urine Glucose Normal mg/dL (Normal) Urine Opiates Screen Neg (NEGATIVE) Urine Fentanyl Screen Neg (NEGATIVE) Urine Barbiturates Screen Neg (NEGATIVE) Urine Phencyclidine Screen Neg (NEGATIVE) Urine Amphetamines Screen Neg (NEGATIVE) Urine Benzodiazepines Screen Neg (NEGATIVE) Urine Cocaine Screen Neg (NEGATIVE) Urine Cannabinoids Screen Neg (NEGATIVE) POC Glucose 91 mg/dl (70-106) Test 06/19/25 15:32 06/19/25 11:25 Troponin I High Sensitivity 7 ng/L (</=34) Prothrombin Time 10.9 sec (9.3-11.8) Prothrombin Time INR 1.03 (0.9-1.15) Activated Partial Thromboplast Time 24.6 SEC (24.5-34.5) Hemoglobin A1c 5.6 % A1C (<5.7) Magnesium Level 1.9 mg/dL (1.6-2.6) B-Type Natriuretic Peptide 105.72 pg/mL (0-100) Triglycerides Level 110 mg/dL (< 150) Cholesterol Level 195 mg/dL (< 200) LDL Cholesterol 101 mg/dL (< 100) HDL Cholesterol 61 mg/dL (40-59) Other Laboratory Tests 06/21/25 04:41 Brief Hx & Hospital Course: The patient, a 74-year-old female, presented to the ED with acute left-sided facial numbness and slurred speech lasting 1 hour, and reported left arm numbness and left lower extremity weakness for one week prior. On arrival, she was found to be in hypertensive emergency with a BP of 220/110. She was treated with IV Labetalol (5 mg then 10 mg) followed by Nicardipine drip, achieving blood pressure control (BP stabilized to 136/52). Initial CT head showed no acute intracranial process, only bilateral maxillary sinus disease. MRI brain confirmed no acute ischemia or hemorrhage. Carotid Doppler revealed bilateral carotid stenosis (5069%) with calcified plaques. The patient was started on dual antiplatelet therapy (aspirin + clopidogrel for 21 days) and high-intensity statin therapy. Blood pressure was maintained within goal with oral antihypertensives (amlodipine, losartan, metoprolol). She remained neurologically stable with mild residual left-sided sensory deficit. ECHO showed sinus rhythm, left atrial enlargement, mild concentric LVH, aortic root enlargement, EF 65%, mild TR, impaired diastolic relaxation, no pericardial effusion. Abdominal ultrasound showed a gallbladder polyp (0.5 cm). Abdominal X- ray revealed a non-obstructive bowel gas pattern. During hospitalization, she was monitored closely with neuro checks, BP management, and stroke workup. Symptoms improved, and she was deemed stable for discharge. Consults/Reason for consult Neurology :- for focal neurological defecits/ stroke symptoms Operations or Procedures PATIENT: ARTURONAYAT: [id number]: [id number] : 1950 LOC: ER ROOM / BED: / AGE / SEX: 74 / F ADM STATUS: REG ER SERVICE 1100 ORDERING PHYSICIAN: DU DANIELSON DO PROCEDURE(s): CTH - STROKE CTH REASON: stroke like symptoms ORDER NUMBER(s): [id number], ACCESSION NUMBER(s): [id number] EXAM: CT STROKE CTH HISTORY: stroke like symptoms COMPARISON: CT HEAD WITHOUT CONTRAST on DOS: 06/15/25, CT HEAD WITHOUT CONTRAST on DOS: 05/18/24, HEAD WITHOUT CONTRAST on DOS: 12/08/22 TECHNIQUE: Noncontrast axial CT images of the head were performed. Sagittal and coronal reformatted images were obtained. This CT exam was performed using 1 or more of the following dose reduction techniques: Automated exposure control, adjustment of the mA and/or kv according to patient size, or the use of iterative reconstruction techniques. Radiation Dose: CTDI volume is 53.46 mGy. Dose-length product is 918.31 mGy*cm FINDINGS: No intracranial hemorrhage, mass, midline shift, hydrocephalus, or evidence of acute large vessel infarct. There is a stable prominent perivascular space along the caudal margin of the right basal ganglia. There are mucous retention cysts in the bilateral maxillary sinuses. There are bilateral jeaneth bullosa. The bilateral mastoid air cells and middle ear spaces are clear. No cranial fracture or scalp edema. IMPRESSION: 1. No acute intracranial process. 2. Bilateral maxillary sinus disease. ATED BY: CATE JONES MD DICTATED DATE/TIME: 06/19/251123 SIGNED BY: CATE JONES MD SIGNED DATE/TIME: 06/19/251123 CC: PATIENT: OCTAVIO MORRIS ACCT: [id number] UNIT: [id number] : 1950 LOC: OVERFLOW ROOM / BED: 100[address] / A AGE / SEX: 74 / F ADM STATUS: ADM IN SERVICE 0409 ORDERING PHYSICIAN: VASQUEZ JACKSON PROCEDURE(s): MBHL - BRAIN HEAD WO CONTRAST REASON: Rule out stroke ORDER NUMBER(s): [id number], ACCESSION NUMBER(s): [id number] MRI BRAIN HEAD WO CONTRAST INDICATION: Rule out stroke EXAM DATE: 06/20/2025 07:59 AM COMPARISON: MRI BRAIN HEAD WO CONTRAST on DOS: 05/19/24 PROCEDURE: Using a 1.5 Yeny scanner, multisequence multiplanar imaging of the brain was obtained. FINDINGS: The brainshows normal morphology and signal characteristics. No abnormal T2 hyperintensity, diffusion restriction, or susceptibility hypointensity is present. The ventricles are normal in size. The midline structures are intact. The major intracranial flow voids are present. The aerated spaces are normal. The orbital contents and extracranial soft tissues appear normal. IMPRESSION: No acute abnormal MRI findings of the brain. ATED BY: JERALD OLIVEROS MD DICTATED DATE/TIME: 06/20/25936 SIGNED BY: JERALD OLIVEROS MD SIGNED DATE/TIME: 06/20/25936 CC: PATIENT: OCTAVIO MORRIS ACCT: [id number] UNIT: [id number] : 1950 LOC: OVERFLOW ROOM / BED: [address] [place] [address] AGE / SEX: 74 / F ADM STATUS: ADM IN SERVICE 40 ORDERING PHYSICIAN: DANIELA OLIVEROS MD PROCEDURE(s): CARCL - CAROTID DUPLX W COLOR DOP REASON: cva ORDER NUMBER(s): [id number], ACCESSION NUMBER(s): [id number] Carotid Duplex Clinical History: cva Comparison: None Technique: Duplex Doppler evaluation of the extracranial carotid and vertebral arteries including color Doppler and spectral/pulsed waveform analysis was performed. Findings: RIGHT SIDE: The peak systolic velocities are 107 cm/s in the CCA, 178 cm/s in the ICA. The ICA/CCA ratio is 1.7. The external carotid artery is patent with peak systolic velocity of 271 cm/s proximally. There is appropriate antegrade flow in the right vertebral artery. Calcified plaque within the carotid bulb, ICA and ECA. LEFT SIDE: The peak systolic velocities are 97 cm/s in the CCA, 165 cm/s in the ICA. The ICA/CCA ratio is 1.7. The external carotid artery is patent with peak systolic velocity of 237 cm/s proximally. There is appropriate antegrade flow in the left vertebral artery. Calcified plaque within the carotid bulb, ICA and ECA. IMPRESSION: 1. Estimated 50-69% stenosis of the right carotid system. 2. Estimated 50-69% stenosis of the left carotid system. Reference: Radiology 2003; 229:340-346 Normal ICA PSV is <125 cm/sec and no plaque or intimal thickening is visible sonographically additional criteria include ICA/CCA PSV ratio <2.0 and ICA EDV <40 cm/sec <50% ICA stenosis ICA PSV is <125 cm/sec and plaque or intimal thickening is visible sonographically additional criteria include ICA/CCA PSV ratio <2.0 and ICA EDV <40 cm/sec 50-69% ICA stenosis ICA PSV is 125-230 cm/sec and plaque is visible sonographically additional criteria include ICA/CCA PSV ratio of 2.0-4.0 and ICA EDV of 40-100 cm/sec 70% ICA stenosis but less than near occlusion ICA PSV is >230 cm/sec and visible plaque and luminal narrowing are seen at villalobos-scale and color Doppler ultrasound (the higher the Doppler parameters lie above the threshold of 230 cm/sec, the greater the likelihood of severe disease) additional criteria include ICA/CCA PSV ratio >4 and ICA EDV >100 cm/sec ATED BY: DIANA WALLIS MD DICTATED DATE/TIME: 06/19/252129 SIGNED BY: DIANA WALLIS MD SIGNED DATE/TIME: 06/19/252129 CC: PATIENT: OCTAVIO MORRIS ACCT: [id number] UNIT: [id number] : 1950 LOC: OVERFLOW ROOM / BED: [address] [place] [address] / AGE / SEX: 74 / F ADM STATUS: ADM IN SERVICE 1831 ORDERING PHYSICIAN: SACHA CLAY PROCEDURE(s): GBUS - GALLBLADDER REASON: evaluate for acute cholecystitis ORDER NUMBER(s): [id number], ACCESSION NUMBER(s): [id number] INDICATION: evaluate for acute cholecystitis TECHNIQUE: Multiple real-time sonographic images were obtained of the right upper quadrant. COMPARISON: None FINDINGS: The liver demonstrates homogeneous echotexture without focal mass lesions. The liver measures 13.6 cm. There is no intrahepatic or extrahepatic ductal dilatation. The common duct measures 0.2 cm. Gallbladder polyp is present measuring 0.5 cm. The gallbladder wall measures 0.3 cm and is within normal limits. The right kidney measures 7.5 cm. The right kidney is normal in contour, size, and shape. The echogenicity is normal. There is no hydronephrosis. The pancreas is not well visualized due to overlying bowel gas. IMPRESSION: No acute findings. Gallbladder polyp is present measuring 0.5 cm. FOLLOW UP RECOMMENDATIONS: Low-risk polyps (pedunculated with a thick or wide stalk, or sessile): < 6 mm: no follow-up 7-9 mm follow-up ultrasound at 12 months 10-14 mm: follow-up ultrasound at 6, 12, 24, and 36 months vs surgical consult > 15 mm: surgical consult Rosaline Bravo, Marc Torres, Abraham Perkins et al. Management of Incidentally Detected Gallbladder Polyps: Society of Radiologists in Ultrasound Consensus Conference Recommendations. Radiology. 2021;:[id number]. ATED BY: MICHAEL SCHWARZ MD DICTATED DATE/TIME: 06/19/251947 SIGNED BY: MICHAEL SCHWARZ MD SIGNED DATE/TIME: 06/19/251947 CC: PATIENT: OCTAVIO MORRIS ACCT: [id number] UNIT: [id number] : 1950 LOC: OVERFLOW ROOM / BED: [address] [place] [address] / AGE / SEX: 74 / F ADM STATUS: ADM IN SERVICE 56 ORDERING PHYSICIAN: SACHA CLAY RESIDENT PROCEDURE(s): KUB - KUB ABDOMEN SINGLE VIEW REASON: EVALUTE FOR SBO ORDER NUMBER(s): [id number], ACCESSION NUMBER(s): [id number] Exam: XY KUB ABDOMEN SINGLE VIEW Indication: EVALUTE FOR SBO Comparison: None Technique: Single radiographic views of the abdomen. Findings: Nonobstructive bowel gas pattern noted. There is no definite evidence for pneumoperitoneum. No abnormal calcifications noted. Hardware within the bilateral hips status post arthroplasty. Impression: 1. Nonobstructive bowel gas pattern noted. ATED BY: DIANA WALLIS MD DICTATED DATE/TIME: 06/19/252113 SIGNED BY: DIANA WALLIS MD SIGNED DATE/TIME: 06/19/252113 CC: PATIENT: LUIS FERNANDO MORRISCCT: [id number]: [id number] : 1950 LOC: ER ROOM / BED: / AGE / SEX: 74 / F ADM STATUS: REG ER SERVICE 1100 ORDERING PHYSICIAN: DU DANIELSON DO PROCEDURE(s): CXR1 - CHEST XRAY 1 VIEW REASON: stroke like symptoms ORDER NUMBER(s): [id number], ACCESSION NUMBER(s): [id number] XY CHEST XRAY 1 VIEW, HISTORY: stroke like symptoms COMPARISON: XY CHEST XRAY 1 VIEW on DOS: 06/15/25, XY CHEST PORTABLE on DOS: 06/12/23, CHEST PORTABLE on DOS: 12/08/22 XY CHEST XRAY 1 VIEW on DOS: 06/15/25, XY CHEST PORTABLE on DOS: 06/12/23, CHEST PORTABLE on DOS: 12/08/22 TECHNICAL DATA: 1 view of the chest was obtained. FINDINGS: Lines and tubes: None Cardiomediastinal silhouette: normal Pulmonary vasculature: normal Lung expansion: normal Lung airspace: normal Lung interstitium: normal Pleura: normal Pneumothorax: no Bones: Unremarkable Other: no IMPRESSION: No acute intrathoracic abnormality. ATED BY: JERALD OLIVEROS MD DICTATED DATE/TIME: 06/19/251127 SIGNED BY: JERALD OLIVEROS MD SIGNED DATE/TIME: 07/25/25 1128 CC: Condition at Discharge: Stable Final Diagnosis/Problems List 1. Transient Ischemic Attack (TIA) symptoms resolved (minor, NIHSS 1) ruled in clinically, imaging negative but symptoms consistent. 2. Hypertensive Emergency resolved. 3. Bilateral Carotid Artery Stenosis (5069%) stable, requires outpatient vascular follow-up. 4. Chronic Kidney Disease, Stage 3 stable renal function during hospitalization. 5. Gallbladder Polyp (0.5 cm) incidental finding, outpatient follow-up required. 6. Dyslipidemia on high-intensity statin. 7. Left Atrial Enlargement, Mild LVH, Mild TR, Impaired Diastolic Relaxation cardiology follow-up needed. 8. History of TIA and Bacterial Pneumonia stable. 9. Status Post Bilateral Hip Replacement stable. Discharge Disposition: Home Discharge Instruct/Medications Diet: Cardiac 2g Na,low cholest Activity: No Restrictions, As Tolerated Follow Up/Referral: 1. Neurology: In 1-2 weeks for stroke follow-up. 2. Vascular Surgery: In 46 weeks for evaluation of carotid artery stenosis. 3. Cardiology: In 1-2 weeks for management of atrial enlargement, LVH, and diastolic dysfunction. 4. Gastroenterology / General Surgery: In 612 months for gallbladder polyp surveillance. 5. Primary Care: In 1 weeks for BP, CKD, and medication review. Medications: New Prescriptions * Aspirin 81 mg PO daily * Clopidogrel 75 mg PO daily for 21 days * Atorvastatin 80 mg PO nightly Continued Medications * Albuterol inhaler PRN * Amlodipine 10 mg PO daily * Ascorbic Acid 500 mg PO daily * Cholecalciferol (Vitamin D3) 2000 IU PO daily * Furosemide 40 mg PO daily * Gabapentin 800 mg PO daily * Hydrochlorothiazide 25 mg PO daily * Meclizine 25 mg PO TID PRN * Metoprolol Succinate 100 mg PO daily * Pantoprazole 40 mg PO BID New Medications: Aspirin (Aspirin Low Dose) 81 Mg Tab 81 MG PO DAILY for 30 Days, #30 TAB 2 Refills Atorvastatin Calcium (Atorvastatin Calcium) 20 Mg Tab 80 MG PO HS for 30 Days, #120 TAB 2 Refills Clopidogrel Bisulfate (Clopidogrel) 75 Mg Tab 75 MG PO DAILY for 21 Days, #21 TAB Continued Medications: Albuterol Sulfate (Ventolin Mdi) 90 Mcg Ih 90 MCG IN Q6HPRN PRN for 30 Days, #30 INH Amlodipine Besylate (Amlodipine Besylate) 10 Mg Tab 10 MG PO DAILY for 30 Days, #30 TAB 3 Refills Ascorbic Acid (Vitamin C Tablet) 500 Mg Tb 1 TAB PO DAILY, #30 TAB Aspirin (Asa) 81 Mg Ch 81 MG PO DAILY, #30 TAB Cholecalciferol (Vitamin D3) 2,000 Unit Tab 1 TAB PO DAILY, #30 TAB 5 Refills Furosemide (Furosemide) 40 Mg Tab 1 TAB PO DAILY Gabapentin (Gabapentin) 800 Mg Tab TAB PO DAILY Hydrochlorothiazide (Hydrochlorothiazide) 25 Mg Tab 25 MG PO DAILY, TAB Meclizine HCl (Meclizine 25) 25 Mg Tab 25 MG PO TIDP PRN for 7 Days, #21 TAB Metoprolol Succinate (Metoprolol Succinate Er) 50 Mg Tab 100 MG PO DAILY, #30 TAB 5 Refills Pantoprazole Sodium Sesquihydr (Pantoprazole Sodium) 40 Mg Tab 40 MG PO BID for 30 Days, #60 TAB Discontinued Medications: Atorvastatin Calcium (Atorvastatin Calcium) 10 Mg Tab 1 TAB PO DAILY Care Plan: * Stroke secondary prevention with dual antiplatelet therapy (aspirin + clopidogrel for 21 days, then aspirin alone). * Continue high-intensity statin (atorvastatin 80 mg nightly). * Maintain BP <140/90, continue antihypertensives. * Monitor carotid stenosis: Vascular surgery referral. * Follow gallbladder polyp: GI or surgical follow-up, repeat US in 612 months. * Lifestyle modifications: Low-salt diet, avoid smoking, regular exercise. * Close follow-up with neurology, cardiology, PCP. Scheduled Amlodipine Besylate (Amlodipine Besylate), 10 MG PO DAILY Amlodipine Besylate (Norvasc Tablet), 10 MG PO DAILY Ascorbic Acid (Vitamin C Tablet), 1 TAB PO DAILY, (Reported) Aspirin (Asa), 81 MG PO DAILY Aspirin (Aspirin Low Dose), 81 MG PO DAILY Atorvastatin Calcium (Atorvastatin Calcium), 80 MG PO HS Cholecalciferol (Vitamin D3), 1 TAB PO DAILY, (Reported) Clopidogrel Bisulfate (Clopidogrel), 75 MG PO DAILY Furosemide (Furosemide), 1 TAB PO DAILY, (Reported) Gabapentin (Gabapentin), TAB PO DAILY, (Reported) Hydrochlorothiazide (Hydrochlorothiazide), 25 MG PO DAILY, (Reported) Metoprolol Succinate (Metoprolol Succinate Er), 100 MG PO DAILY, (Reported) Pantoprazole Sodium Sesquihydr (Pantoprazole Sodium), 40 MG PO BID Scheduled PRN Albuterol Sulfate (Anuradha Thompson), 90 MCG IN Q6HPRN PRN Meclizine HCl (Meclizine 25), 25 MG PO TIDP PRN Discontinued Medications Atorvastatin Calcium (Atorvastatin Calcium), 1 TAB PO DAILY, (Reported) 40 Discharge Statement: "Patient was advised to return to the ER or call 911 if any headaches, dizziness, shortness of breath, chest pain, abdominal pain, bleeding, fevers, or worsening of medical condition. Patient was counseled about treatment plan, medications, possible side effects, patientverbalized understanding. All questions were answered to the best of my ability. This discharge took greater then 30 minutes in planning, reviewing documentation, counseling the patient, and discussing with other team members." ASSESSMENT ASSESSMENT Hospital Course The patient, a 74-year-old female, presented to the ED with acute left-sided facial numbness and slurred speech lasting 1 hour, and reported left arm numbness and left lower extremity weakness for one week prior. On arrival, she was found to be in hypertensive emergency with a BP of 220/110. She was treated with IV Labetalol (5 mg then 10 mg) followed by Nicardipine drip, achieving blood pressure control (BP stabilized to 136/52). Initial CT head showed no acute intracranial process, only bilateral maxillary sinus disease. MRI brain confirmed no acute ischemia or hemorrhage. Carotid Doppler revealed bilateral carotid stenosis (5069%) with calcified plaques. The patient was started on dual antiplatelet therapy (aspirin + clopidogrel for 21 days) and high-intensity statin therapy. Blood pressure was maintained within goal with oral antihypertensives (amlodipine, losartan, metoprolol). She remained neurologically stable with mild residual left-sided sensory deficit. ECHO showed sinus rhythm, left atrial enlargement, mild concentric LVH, aortic root enlargement, EF 65%, mild TR, impaired diastolic relaxation, no pericardial effusion. Abdominal ultrasound showed a gallbladder polyp (0.5 cm). Abdominal X- ray revealed a non-obstructive bowel gas pattern. During hospitalization, she was monitored closely with neuro checks, BP management, and stroke workup. Symptoms improved, and she was deemed stable for discharge. Assessment 1. Transient Ischemic Attack (TIA) symptoms resolved (minor, NIHSS 1) ruled in clinically, imaging negative but symptoms consistent. 2. Hypertensive Emergency resolved. 3. Bilateral Carotid Artery Stenosis (5069%) stable, requires outpatient vascular follow-up. 4. Chronic Kidney Disease, Stage 3 stable renal function during hospitalization. 5. Gallbladder Polyp (0.5 cm) incidental finding, outpatient follow-up required. 6. Dyslipidemia on high-intensity statin. 7. Left Atrial Enlargement, Mild LVH, Mild TR, Impaired Diastolic Relaxation cardiology follow-up needed. 8. History of TIA and Bacterial Pneumonia stable. 9. Status Post Bilateral Hip Replacement stable. Date of Service: Jun 21, 2025 Billing Provider: GOPI BANKS MD Common Visit Codes: 22905-YCW/OBS DISCH DAY >30min SACHA CLAY RESIDENT Jun 21, 2025 17:51 GOPI BANKS MD Jun 24, 2025 21:53
[2025-06-21] MEDS ORDERED: AML5T PO (18:03)
--- NOTE | 2025-06-22 08:24 | ECG ---
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
--- NOTE | 2025-06-22 12:50 | ECG ---
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
== END 2025-06-21 20:45 | disposition home or self-care (01) | DRG 68 ==
LOC: ER 10:48 → OVERFLOW 17:57 → TELE-CENTR 06-20 14:46
PROVIDERS: ATTEND Internal Medicine
PROC: 5A09357 Assistance with Respiratory Ventilation, Less than 24 Consecutive Hours, Continuous Positive Airway Pressure (ICD-10-PCS; principal; 2025-06-20)
DX: I65.23 Occlusion and stenosis of bilateral carotid arteries (principal); I16.1 Hypertensive emergency; R73.9 Hyperglycemia, unspecified; F41.9 Anxiety disorder, unspecified; G47.33 Obstructive sleep apnea (adult) (pediatric); N18.30 Chronic kidney disease, stage 3 unspecified; K82.4 Cholesterolosis of gallbladder; J32.0 Chronic maxillary sinusitis; E66.9 Obesity, unspecified; I07.1 Rheumatic tricuspid insufficiency; E78.5 Hyperlipidemia, unspecified; K21.9 Gastro-esophageal reflux disease without esophagitis; I12.9 Hypertensive chronic kidney disease with stage 1 through stage 4 chronic kidney disease, or unspecified chronic kidney disease; E87.6 Hypokalemia; Z68.34 Body mass index [BMI] 34.0-34.9, adult; F32.A Depression, unspecified; Z90.710 Acquired absence of both cervix and uterus; Z96.643 Presence of artificial hip joint, bilateral; Z82.49 Family history of ischemic heart disease and other diseases of the circulatory system; Z83.3 Family history of diabetes mellitus; Z82.3 Family history of stroke; Z80.6 Family history of leukemia; Z82.0 Family history of epilepsy and other diseases of the nervous system; Z79.899 Other long term (current) drug therapy; Z79.82 Long term (current) use of aspirin; Z79.02 Long term (current) use of antithrombotics/antiplatelets
CPT/HCPCS: 36415; 70450; 70551; 71045; 74018; 76705; 80048; 80053; 80061; 80307; 81001; 82962; 83036; 83735; 83880; 84484; 85025; 85610; 85730; 93005; 93306; 93886; 94640; 94660; 96361; 96374; 97110; 97116; 97163; 97530; 99291; G0378; J2470

== ENCOUNTER 2025-11-07 15:49 | Inpatient (IN) | payer OTHER, MEDICAID ==
[~2025-11-07] VITALS: Ht 152.4 cm; Wt 77.0 kg
[~2025-11-07 15:49] MED LIST changes: +ASPI-325 PO; -ATOR10TA52 PO; +ATOR20TA50 PO; +CLOP75TA70 PO
[2025-11-07 16:31] LABS: Nucleated Red Blood Cells % 0.1 %
[2025-11-07 16:33] LABS: Hematocrit 40.3 % (36.0-46.0); Hemoglobin 13.0 g/dL (12.2-16.2); Mean Corpuscular Hemoglobin 26.9 pg (28.0-32.0); Mean Corpuscular Volume 83.0 fL (80.0-100.0)
[2025-11-07 16:47] LABS: Alanine Aminotransferase 21 U/L (7-40); Albumin 4.2 g/dL (3.2-4.8); Alkaline Phosphatase 99 U/L (46-116); Anion Gap 10 (5-15); BUN/Creatinine Ratio 8.7 (10.0-20.0); Bilirubin, Total 0.9 mg/dL (0.2-1.0); Blood Urea Nitrogen 8 mg/dL (9-23); Calcium 9.6 mg/dL (8.7-10.4); Carbon Dioxide 25 mmol/L (20-31); Chloride 106 mmol/L (98-107); Glucose 103 mg/dL (74-106); Potassium 3.6 mmol/L (3.5-5.1); Sodium 141 mmol/L (136-145); Total Protein 7.3 g/dL (5.7-8.2)
--- NOTE | 2025-11-07 17:06 | DVH ---
CLINICAL INFORMATION: Hypertension. Nausea and vomiting. TECHNIQUE: Axial imaging was obtained through the brain without contrast. Coronal and sagittal reformatted images were obtained, reviewed, and stored. Images were reviewed in brain and bone windows. All CT scans at this medical facility are performed using dose modulation techniques as appropriate to a performed exam including the following: Automated exposure control was utilized; adjustment of the MA and/or KV according to patient size; and use of iterative reconstruction technique. CTDIvol = 53.99 mGy DLP = 755.91 mGy-cm COMPARISON: MRI BRAIN HEAD WO CONTRAST on DOS: 06/20/25, CT STROKE CTH on DOS: 06/19/25, CT HEAD WITHOUT CONTRAST on DOS: 06/15/25 FINDINGS: There is no acute intracranial hemorrhage. No mass effect or midline shift. There is a partially empty sella. The ventricles and sulci are within normal limits in size for age. Basal cisterns are patent. The calvarium is unremarkable. Paranasal sinuses and mastoid air cells are clear. IMPRESSION: No CT evidence of acute intracranial abnormality.
--- NOTE | 2025-11-07 17:09 | ED.PDOC ---
HPI Comments HPI: Partha 75 y.o F presents to the ED for a chief complaint of intermittent chest pain associated with SOB, nausea and vomiting that started 1 day ago. Patient describes pain as sharp and has no alleviating factors. Patient states last emesis episode was earlier today. Additionally, she mentions elevated BP for the past week and was also elevated during her appointment with her PCP who stated if it continued to be high, to come into the ED. Patient today mentions BP read 269/120. She has been compliant with taking her medication. She denies any fever, chills, or back pain. 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 REVIEW OF SYSTEMS: CONSTITUTIONAL: Denies acute: fever, diaphoresis, chills, HEAD: Denies acute: headache, photophobia Eyes: Denies acute: Double vision, vision loss, eye pain, eye discharge. EARS: Denies acute: tinnitus, hearing loss, ear discharge, ear pain, THROAT: Denies acute: sore throat, swelling, difficulty swallowing , pain with swallowing, change in voice. NECK: Denies acute: neck pain, neck swelling, stiff neck. HEART: Denies acute : , palpitations, LUNGS: Denies acute: , wheezing, cough, hemoptysis ABDOMEN: Denies acute: abdominal pain, diarrhea, melena , hematemesis, hematochezia SKIN: Denies acute: rash, redness, lesions, itchiness. EXTREMITIES: Denies acute: calf pain, numbness, tingling, weakness, denies pain in extremity. Denies acute: Low back pain. Neuro: Denies acute: focal neurological deficit, motor or sensory focal neurological deficit, tremors, seizure like activity, confusion, dizziness, change in mental status, loss of bowel or bladder function, cauda equina like symptoms. : Denies acute: dysuria, hematuria, flank pain, increase in urinary frequency. PSYCH: Denies acute: hallucination, suicidal ideation, homicidal ideation. PHYSICAL EXAM: General: -----moderate---acute distress, awake and alert. Head: normocephalic, atraumatic. No raccoon's eyes, no singletary sign. Neck: supple, trachea is midline, no swelling. Throat: Normal phonation. Eyes:, no erythema, no purulent discharge, no proptosis, no icterus. Heart: regular rate, regular rhythm, no significant murmur appreciated. Lungs: no apparent respiratory distress, Able to speak in full sentences. No wheezing, no rhonchi, no crackles. No stridors Clear to auscultation bilaterally. Abdomen: non tender to palpation, non distended, soft, no guarding, no rebound, + bowel sounds. Obese Neuro: Awake, Alert, oriented to name, self, situation, follows commands GCS=15. Speech is normal. Skin: no petechia, no purpura, no cyanosis, non-pale, not jaundice. Lower extremities: --trace bilateral- Pitting edema no deformity, no focal swelling, no calf TTP. Makes eye contact. moves all four extremities. Face: no apparent facial droop. ED COURSE: DISCLAIMER: This medical document was created using an electronic medical record system with voice recognition software and computerized dictation system. Although this document has been carefully reviewed, there might still be some phonetic and typographical errors. Occasional wrong-word or "sound-alike" substitutions may have occurred due to the inherent limitations of voice recognition software. These areas are purely typographical due to imperfections of the software programs and do not reflect any compromise in the patient's medical care. Please read the chart carefully and recognize, using context, where these substitutions have occurred. Chief Complaint: Chest Pain Time Seen by MD: 16:57 Primary Care Provider: OOA Reviewed Notes: Allergies Allergies: Coded Allergies: NO KNOWN ALLERGIES (Unverified , 05/31/11) Home Meds Active Scripts Amlodipine Besylate (NORVASC TABLET) 5 Mg Tb, 10 MG PO DAILY for 30 Days, #60 TAB 1 Refill Prov:DIANE ALVAREZ RESIDENT 06/21/25 Clopidogrel Bisulfate (CLOPIDOGREL) 75 Mg Tab, 75 MG PO DAILY for 21 Days, #21 TAB Prov:DIANE ALVAREZ 06/21/25 Aspirin (Aspirin Low Dose) 81 Mg Tab, 81 MG PO DAILY for 30 Days, #30 TAB 2 Refills Prov:DIANE ALVAREZ 06/21/25 Atorvastatin Calcium (ATORVASTATIN CALCIUM) 20 Mg Tab, 80 MG PO HS for 30 Days, #120 TAB 2 Refills Prov:DIANE ALVAREZ 06/21/25 Amlodipine Besylate (Amlodipine Besylate) 10 Mg Tab, 10 MG PO DAILY for 30 Days, #30 TAB 3 Refills Prov:RAHEEM BIRD MD 05/20/24 Meclizine HCl (Meclizine 25) 25 Mg Tab, 25 MG PO TIDP PRN for 7 Days, #21 TAB Prov:RAHEEM BIRD MD 05/20/24 Albuterol Sulfate (VENTOLIN MDI) 90 Mcg Ih, 90 MCG IN Q6HPRN PRN for 30 Days, #30 INH Prov:KAL HORVATH MD 11/20/22 Pantoprazole Sodium Sesquihydr (Pantoprazole Sodium) 40 Mg Tab, 40 MG PO BID for 30 Days, #60 TAB Prov:KAL HORVATH MD 11/20/22 Aspirin (Asa) 81 Mg Ch, 81 MG PO DAILY, #30 TAB Prov:RADHA HAQ MD 10/04/18 Reported Medications Hydrochlorothiazide (Hydrochlorothiazide) 25 Mg Tab, 25 MG PO DAILY, TAB 05/19/24 Furosemide (Furosemide) 40 Mg Tab, 1 TAB PO DAILY 05/19/24 Gabapentin (Gabapentin) 800 Mg Tab, TAB PO DAILY 06/13/23 Ascorbic Acid (VITAMIN C TABLET) 500 Mg Tb, 1 TAB PO DAILY, #30 TAB 11/19/22 Cholecalciferol (VITAMIN D3) 2,000 Unit Tab, 1 TAB PO DAILY, #30 TAB 5 Refills 11/19/22 Metoprolol Succinate (Metoprolol Succinate Er) 50 Mg Tab, 100 MG PO DAILY, #30 TAB 5 Refills 03/13/17 Information Source: Patient, Relative Mode of Arrival: Ambulatory EKG EKG : Pulse Rate (adult): 75 Cardiac Rhythm: NSR Was a procedure done? Was a procedure done?: No CP Differential Dx Differential Diagnosis: N/A Differential Diagnosis: CHF, HTN Essential, HTN Accelerated, HTN Encephalopathy Differential Diagnosis: Angina, Aortic dissection, Chest Wall Pain, Cholelithiasis, Costochondritis, Esophageal reflux/spasm, Myocardial Infarction, Pericarditis X-Ray, Labs, Meds, VS Vital Signs Date Time Temp Pulse Resp B/P (MAP) Pulse Ox O2 Delivery O2 Flow Rate FiO2 11/07/25 18:57 71 11/07/25 17:31 99.6 79 18 157/89 (111) 97 99.6 11/07/25 17:31 79 157/89 11/07/25 17:09 75 11/07/25 16:58 76 11/07/25 15:58 75 11/07/25 15:58 98.8 82 16 210/64 99 98.8 Lab Test 11/07/25 17:10 11/07/25 16:17 Range/Units Troponin I High Sensitivity 7 8 </=34 ng/L White Blood Count 4.5 4.4-10.8 10^3/uL Red Blood Count 4.86 4.0-5.20 10^6/uL Hemoglobin 13.0 12.2-16.2 g/dL Hematocrit 40.3 36.0-46.0 % Mean Corpuscular Volume 83.0 80.0-100.0 fL Mean Corpuscular Hemoglobin 26.9 L 28.0-32.0 pg Mean Corpuscular Hemoglobin Concent 32.4 32.0-36.0 g/dL Red Cell Distribution Width 15.4 H 11.8-14.3 % Platelet Count 180 140-450 10^3/uL Mean Platelet Volume 9.0 6.9-10.8 fL Neutrophils (%) (Auto) 79.0 37.0-80.0 % Lymphocytes (%) (Auto) 8.7 L 10.0-50.0 % Monocytes (%) (Auto) 10.1 0.0-12.0 % Eosinophils (%) (Auto) 1.4 0.0-7.0 % Basophils (%) (Auto) 0.8 0.0-2.0 % Neutrophils # (Auto) 3.5 1.6-8.6 10 ^3/uL Lymphocytes # (Auto) 0.4 0.4-5.4 10 ^3/uL Monocytes # (Auto) 0.5 0-1.3 10 ^3/uL Eosinophils # (Auto) 0.1 0-0.8 10 ^3/uL Basophils # (Auto) 0 0-0.2 10 ^3/uL Nucleated Red Blood Cells 0.1 % Sodium Level 141 136-145 mmol/L Potassium Level 3.6 3.5-5.1 mmol/L Chloride Level 106 98-107 mmol/L Carbon Dioxide Level 25 20-31 mmol/L Anion Gap 10 5-15 Blood Urea Nitrogen 8 L 9-23 mg/dL Creatinine 0.92 0.550-1.02 mg/dL Glomerular Filtration Rate Calc 65 >90 mL/min BUN/Creatinine Ratio 8.7 L 10.0-20.0 Serum Glucose 103 74-106 mg/dL Calcium Level 9.6 8.7-10.4 mg/dL Total Bilirubin 0.9 0.2-1.0 mg/dL Aspartate Amino Transferase (AST) 27 13-40 U/L Alanine Aminotransferase (ALT) 21 7-40 U/L Alkaline Phosphatase 99 46-116 U/L Total Protein 7.3 5.7-8.2 g/dL Albumin 4.2 3.2-4.8 g/dL Current Medications Medications (Trade) Dose Ordered Sig/Caren Route Start Time Stop Time Status Last Admin Ondansetron HCl (Zofran) 8 mg ONCE ONCE IV 11/07/25 16:45 11/07/25 16:51 DC 11/07/25 17:47 [place] [address] Ph: [phone] DIAGNOSTIC IMAGING Diagnostic Imaging Report : [id number] Signed PATIENT: OCTAVIO MORRIS ACCT: [id number] UNIT: [id number] : 1950 LOC: ER ROOM / BED: / AGE / SEX: 75 / F ADM STATUS: REG ER SERVICE 1399 ORDERING PHYSICIAN: DU DANIELSON DO PROCEDURE(s): CXRP - CHEST PORTABLE REASON: CHEST PAIN ORDER NUMBER(s): [id number], ACCESSION NUMBER(s): [id number] CHEST RADIOGRAPH INDICATION: CHEST PAIN TECHNIQUE: Single frontal view of the chest was obtained COMPARISON: XY CHEST XRAY 1 VIEW on DOS: 06/19/25, XY CHEST XRAY 1 VIEW on DOS: 06/15/25, XY CHEST PORTABLE on DOS: 06/12/23 FINDINGS: Lines and Tubes: None Lungs: No focal consolidation. Pleura: No effusion. No pneumothorax. Cardiomediastinal contours: Unremarkable Bones: No acute osseous abnormality. IMPRESSION: 1. No acute cardiopulmonary disease. ATED BY: YELENA ELMORE Jr., DO DICTATED DATE/TIME: 11/07/251714 SIGNED BY: YELENA ELMORE Jr., SIGNED DATE/TIME: 11/07/251714 CC: [place] [address] Ph: [phone] DIAGNOSTIC IMAGING Diagnostic Imaging Report : [id number] Signed PATIENT: OCTVAIO MORRIS ACCT: [id number] UNIT: [id number] : 1950 LOC: ER ROOM / BED: / AGE / SEX: 75 / F ADM STATUS: REG ER SERVICE 33 ORDERING PHYSICIAN: DU DANIELSON DO PROCEDURE(s): HWOCT - HEAD WITHOUT CONTRAST REASON: htn, n/v ORDER NUMBER(s): [id number], ACCESSION NUMBER(s): [id number] CLINICAL INFORMATION: Hypertension. Nausea and vomiting. TECHNIQUE: Axial imaging was obtained through the brain without contrast. Coronal and sagittal reformatted images were obtained, reviewed, and stored. Images were reviewed in brain and bone windows. All CT scans at this medical facility are performed using dose modulation techniques as appropriate to a performed exam including the following: Automated exposure control was utilized; adjustment of the MA and/or KV according to patient size; and use of iterative reconstruction technique. CTDIvol = 53.99 mGy DLP = 755.91 mGy-cm COMPARISON: MRI BRAIN HEAD WO CONTRAST on DOS: 06/20/25, CT STROKE CTH on DOS: 06/19/25, CT HEAD WITHOUT CONTRAST on DOS: 06/15/25 FINDINGS: There is no acute intracranial hemorrhage. No mass effect or midline shift. There is a partially empty sella. The ventricles and sulci are within normal limits in size for age. Basal cisterns are patent. The calvarium is unremarkable. Paranasal sinuses and mastoid air cells are clear. IMPRESSION: No CT evidence of acute intracranial abnormality. ATED BY: TIMOTHY WARD DO DICTATED DATE/TIME: 11/07/251703 SIGNED BY: TIMOTHY WARD DO SIGNED DATE/TIME: 11/07/251703 CC: Time of 1ST Reevaluation: 17:04 Reevaluation 1ST: Unchanged Patient Education/Counseling: Diagnosis, Treatment Family Education/Counseling: Diagnosis, Treatment Departure 1 Departure Time of Disposition: 17:57 Impression: Primary Impression: Hypertensive crisis Additional Impression: Chest pain Disposition: ADMITTED INPATIENT Admit to: Tele Condition: Guarded Discharged With: Self Critical Care Note Critical Care Time?: No Heart Score Heart Score: Heart Score Response (Comments) Value History Moderate Suspicious 1 EKG Normal 0 Age >65 2 Risk Factors >3 or Hx ASHD 2 Total 5 I personally scribed for DU DANIELSON DO ([email or web address]) on 11/07/25 at 17:09. Electronically submitted by Mitzi Gonzalez ([facility]). I personally scribed for DU DANIELSON DO ([email or web address]) on 11/07/25 at 17:12. Electronically submitted by Mitzi Gonzalez ([facility]). I personally scribed for DU DANIELSON DO ([email or web address]) on 11/07/25 at 17:12. Electronically submitted by Mitzi Gonzalez ([facility]). I personally scribed for DU DANIELSON DO ([email or web address]) on 11/07/25 at 19:10. Electronically submitted by Mitzi Gonzalez ([facility]). DU DANIELSON DO Nov 07, 2025 17:09
--- NOTE | 2025-11-07 17:18 | DVH ---
CHEST RADIOGRAPH INDICATION: CHEST PAIN TECHNIQUE: Single frontal view of the chest was obtained COMPARISON: XY CHEST XRAY 1 VIEW on DOS: 06/19/25, XY CHEST XRAY 1 VIEW on DOS: 06/15/25, XY CHEST PORTABLE on DOS: 06/12/23 FINDINGS: Lines and Tubes: None Lungs: No focal consolidation. Pleura: No effusion. No pneumothorax. Cardiomediastinal contours: Unremarkable Bones: No acute osseous abnormality. IMPRESSION: 1. No acute cardiopulmonary disease.
[2025-11-07] MEDS: LABETALOL HCL 20 MG/4 ML VL IV ONE (17:31)
[2025-11-07] MEDS: ONDANSETRON HCL 4 MG/2 ML VIAL IV ONE (17:47)
[2025-11-07] MEDS: ACETAMINOPHEN 325 MG TAB PO ONE (19:22)
[2025-11-07] MEDS: NITROGLYCERIN 0.4 MG SL TAB SL ONE (19:23)
[2025-11-07] MEDS ORDERED: ONDANSETRON HCL 4 MG/2 ML VIAL IV PRN (19:30)
[2025-11-07] MEDS ORDERED: DOCUSATE SOD 100 MG CAP PO PRN (19:30)
[2025-11-07] MEDS ORDERED: NITROGLYCERIN 0.4 MG SL TAB SL PRN (20:00)
[2025-11-07] MEDS ORDERED: MORPHINE SULFATE INJ 2 MG/ml SYRG IV PRN (20:00)
--- NOTE | 2025-11-07 20:01 | DVHHP2 ---
History of Present Illness Reason for Visit: Chest pain History of Present Illness The patient is a 75-year-old female with past medical history of CVA, hypertension, anxiety, and carotid blockage 70% who presented to [facility] ED with complaint of intermittent chest pain. Patient reports she has been experiencing substernal chest pain, described as sharp in nature, associated with shortness of breaths, nausea, vomiting, uncontrolled blood pressure, getting worse that prompted this visit. Patient is noted to be wearing left hand cast status post mechanical fall on late September, with sustained fracture; being followed by Orthopedic outpatient. Patient was seen and evaluated in the ED, laboratory data shows WBC 4.5, platelets 180, sodium 141, potassium 3.6, BUN 8, creatinine 0.92, GFR 65, glucose 103, calcium 9.6, troponin 8, blood pressure 210/64 trending down to 157/89, heart rate 72, temperature 99.6 F, O2 saturation 97% on room air. Chest x-ray show no acute cardiopulmonary disease. Please see medication orders section in the computer. On my assessment, daughter at bedside, patient denied chest pain at this moment, no dizziness, headache, diaphoresis, shortness of breaths, no diarrhea, nausea, vomiting, fever, no chills. Patient was admitted for further evaluation and medical management. Past Medical History HTN, CVA, Anxiety, Caroid blockage (70%), Two thyroid lumps visualized on imaging scans Past Surgical History Partial hysterectomy, Bilateral hip replacement Family History Reviewed, noncontributory to the management of this case. Past Social History The patient lives at home, denies smoking, alcohol or illicit drugs abuse. Review of Systems Constitutional: Yes: Weakness; No: Fever, Chills, Sweats, Malaise, Other Eyes: No: Pain, Vision change, Conjunctivae inflammation, Eyelid inflammation, Other, Redness ENT: No: Ear pain, Ear discharge, Nose pain, Nose discharge, Nose congestion, Mouth pain, Mouth swelling, Throat pain, Throat swelling, Other Respiratory: No: Cough, Dry, Shortness of breath, SOB with excertion, Wheezing, Hemoptysis, Pleuritic Pain, Sputum, Wheezing, Other Cardiovascular: Chest Pain, Other (Hypertension); No: Palpitations, Orthopnea, Paroxysmal Noc. Dyspnea, Edema, Lt Headedness Gastrointestinal: No: Nausea, Vomiting, Abdominal Pain, Diarrhea, Constipation, Melena, Hematochezia, Other Genitourinary: No Dysuria, No Frequency, No Incontinence, No Hematuria, No Retention, No Other Musculoskeletal: other (Left hand cast in place); No: neck pain, shoulder pain, arm pain, back pain, hand pain, leg pain, foot pain Skin: No: Rash, Lesions, Jaundice, Bruising, Other Neurological: No: Weakness, Numbness, Incoordination, Change in speech, Confusion, Seizures, Other Allergies: Coded Allergies: NO KNOWN ALLERGIES (Unverified , 05/31/11) Medications Current Medications Medications Dose Ordered Sig/Caren Route Start Time Stop Time Status Last Admin Dose Admin Amlodipine Besylate 10 mg DAILY PO 11/08/25 10:00 Metoprolol Tartrate 25 mg BID PO 11/07/25 22:00 Aspirin 81 mg DAILY PO 11/08/25 10:00 Gabapentin 300 mg BID PO 11/07/25 22:00 Sodium Chloride 10 ml Q8HR IV 11/07/25 22:00 Acetaminophen/ Hydrocodone Bitart 1 tab Q4HP PRN PO 11/07/25 19:30 Ondansetron HCl 4 mg Q4HP PRN IV 11/07/25 19:30 Docusate Sodium 100 mg BIDPRN PRN PO 11/07/25 19:30 Acetaminophen 650 mg Q6HP PRN PO 11/07/25 19:30 Exam Vital Signs Vital Signs Date Time Temp Pulse Resp B/P (MAP) Pulse Ox O2 Delivery O2 Flow Rate FiO2 11/07/25 19:23 173/78 11/07/25 19:22 99.4 11/07/25 19:15 72 16 96 General Appearance: Alert, Oriented X3, Cooperative, No acute distress HEENT: Atraumatic, PERRLA, EOMI, Mucous membr. moist/pink Respiratory: Normal air movement Cardiovascular: Regular rate, Normal S1, Normal S2, No murmurs Abdominal: Normal bowel sounds, Soft, No tenderness, No hepatospenomegaly, No masses Extremities: No clubbing, No cyanosis, No edema, Normal pulses, No tenderness/swelling Skin: No rashes, No significant lesion Neuro: Normal speech, Normal tone, Sensation intact, Cranial nerves 3-12 NL, Reflexes 2+, Other (Generalized weakness) Psych/Mental Status: Mental status NL, Mood NL Labs/Xrays Labs Test 11/07/25 19:31 11/07/25 16:17 Range/Units White Blood Count 4.5 4.4-10.8 10^3/uL Red Blood Count 4.86 4.0-5.20 10^6/uL Hemoglobin 13.0 12.2-16.2 g/dL Hematocrit 40.3 36.0-46.0 % Mean Corpuscular Volume 83.0 80.0-100.0 fL Mean Corpuscular Hemoglobin 26.9 L 28.0-32.0 pg Mean Corpuscular Hemoglobin Concent 32.4 32.0-36.0 g/dL Red Cell Distribution Width 15.4 H 11.8-14.3 % Platelet Count 180 140-450 10^3/uL Mean Platelet Volume 9.0 6.9-10.8 fL Neutrophils (%) (Auto) 79.0 37.0-80.0 % Lymphocytes (%) (Auto) 8.7 L 10.0-50.0 % Monocytes (%) (Auto) 10.1 0.0-12.0 % Eosinophils (%) (Auto) 1.4 0.0-7.0 % Basophils (%) (Auto) 0.8 0.0-2.0 % Neutrophils # (Auto) 3.5 1.6-8.6 10 ^3/uL Lymphocytes # (Auto) 0.4 0.4-5.4 10 ^3/uL Monocytes # (Auto) 0.5 0-1.3 10 ^3/uL Eosinophils # (Auto) 0.1 0-0.8 10 ^3/uL Basophils # (Auto) 0 0-0.2 10 ^3/uL Nucleated Red Blood Cells 0.1 % Sodium Level 141 136-145 mmol/L Potassium Level 3.6 3.5-5.1 mmol/L Chloride Level 106 98-107 mmol/L Carbon Dioxide Level 25 20-31 mmol/L Anion Gap 10 5-15 Blood Urea Nitrogen 8 L 9-23 mg/dL Creatinine 0.92 0.550-1.02 mg/dL Glomerular Filtration Rate Calc 65 >90 mL/min BUN/Creatinine Ratio 8.7 L 10.0-20.0 Serum Glucose 103 74-106 mg/dL Calcium Level 9.6 8.7-10.4 mg/dL Total Bilirubin 0.9 0.2-1.0 mg/dL Aspartate Amino Transferase (AST) 27 13-40 U/L Alanine Aminotransferase (ALT) 21 7-40 U/L Alkaline Phosphatase 99 46-116 U/L Total Protein 7.3 5.7-8.2 g/dL Albumin 4.2 3.2-4.8 g/dL PATIENT: OCTAVIO MORRIS ACCT: [id number] UNIT: [id number] : 1950 LOC: ER ROOM / BED: / AGE / SEX: 75 / F ADM STATUS: REG ER SERVICE [id number] ORDERING PHYSICIAN: DU DANIELSON DO PROCEDURE(s): HWOCT - HEAD WITHOUT CONTRAST REASON: htn, n/v ORDER NUMBER(s): [id number], ACCESSION NUMBER(s): [id number] CLINICAL INFORMATION: Hypertension. Nausea and vomiting. TECHNIQUE: Axial imaging was obtained through the brain without contrast. Coronal and sagittal reformatted images were obtained, reviewed, and stored. Images were reviewed in brain and bone windows. All CT scans at this medical facility are performed using dose modulation techniques as appropriate to a performed exam including the following: Automated exposure control was utilized; adjustment of the MA and/or KV according to patient size; and use of iterative reconstruction technique. CTDIvol = 53.99 mGy DLP = 755.91 mGy-cm COMPARISON: MRI BRAIN HEAD WO CONTRAST on DOS: 06/20/25, CT STROKE CTH on DOS: 06/19/25, CT HEAD WITHOUT CONTRAST on DOS: 06/15/25 FINDINGS: There is no acute intracranial hemorrhage. No mass effect or midline shift. There is a partially empty sella. The ventricles and sulci are within normal limits in size for age. Basal cisterns are patent. The calvarium is unremarkable. Paranasal sinuses and mastoid air cells are clear. IMPRESSION: No CT evidence of acute intracranial abnormality. ORDERING PHYSICIAN: DU DANIELSON DO PROCEDURE(s): CXRP - CHEST PORTABLE REASON: CHEST PAIN ORDER NUMBER(s): [id number], ACCESSION NUMBER(s): [id number] CHEST RADIOGRAPH INDICATION: CHEST PAIN TECHNIQUE: Single frontal view of the chest was obtained COMPARISON: XY CHEST XRAY 1 VIEW on DOS: 06/19/25, XY CHEST XRAY 1 VIEW on DOS: 06/15/25, XY CHEST PORTABLE on DOS: 06/12/23 FINDINGS: Lines and Tubes: None Lungs: No focal consolidation. Pleura: No effusion. No pneumothorax. Cardiomediastinal contours: Unremarkable Bones: No acute osseous abnormality. IMPRESSION: 1. No acute cardiopulmonary disease. SEPSIS Sepsis Screen Date sepsis recognized/suspect: Nov 07, 2025 Time Sepsis recognized/suspect: 1730 Recent Procedure: No On Antibiotic Therapy: No Respiratory Rate >20: No Heart Rate >90: No Temp<36 C (96.8 F) or >38.3 C: No SBP <90 or MAP <65 mmHG: No New Acute Mental Status Change: No Is the patient on CPAP, BIPAP,: No Physician Orders Chest Portable (11/07/25 15:58) Urinalysis (11/07/25 15:58) Electrocardigram (11/07/25 15:58) Troponin-I Hs (11/07/25 18:58) Electrocardigram (11/07/25 16:58) Electrocardigram (11/07/25 18:58) Head Without Contrast (11/07/25 16:34) Amlodipine Tablet (Norvasc Tablet) (11/08/25 10:00) Metoprolol Tartrate Tablet (Lopressor Ta (11/07/25 22:00) Aspirin Chewable Tablet (11/08/25 10:00) Gabapentin Capsule (Neurontin Capsule) (11/07/25 22:00) Allergies (11/07/25 19:18) Code Status (11/07/25 19:18) Sodium Chloride Lock (Saline Lock Ns) (11/07/25 22:00) Oxygen Per Hour (11/07/25 19:18) Hydrocodone-Acet 5/325mg Tab ([place] 5/32 (11/07/25 19:30) Ondansetron Hcl (Zofran) (11/07/25 19:30) Docusate Sodium Capsule (Colace Capsule) (11/07/25 19:30) Fall Risk Precautions In Place QSHIFT (11/07/25 19:18) Complete Blood Count (11/08/25 04:00) Comprehensive Metabolic Panel (11/08/25 04:00) Cardiac Diet-2gna,Lofat,Lochol (11/08/25 Breakfast) Condition: Serious (11/07/25 19:18) Acetaminophen Tablet (Tylenol Tablet) (11/07/25 19:30) Maintain Bed Rest (11/07/25 19:18) Sequential Compression Device (11/07/25 ) Admit (11/07/25 20:00) Nitroglycerin Sublingual (Ntrostat Subli (11/07/25 20:00) Morphine Sulfate Injection (11/07/25 20:00) Stat Ekg For Chest Pain (11/07/25 20:00) Notify Md Of Changes From Base (11/07/25 20:00) [employer] Developer For 24 Hours (11/07/25 20:00) Emergency Dysrhythmia Protocol (11/07/25 20:00) Rhythm Strips Once Every Shift (11/07/25 20:00) Oxygen By Nasal Cannula (11/07/25 20:00) Vital Signs Date Time Temp Pulse Resp B/P (MAP) Pulse Ox O2 Delivery O2 Flow Rate FiO2 11/07/25 19:23 173/78 11/07/25 19:22 99.4 11/07/25 19:15 99.4 72 16 173/78 (109) 96 99.4 11/07/25 18:57 71 11/07/25 17:31 99.6 79 18 157/89 (111) 97 99.6 11/07/25 17:31 79 157/89 11/07/25 17:09 75 11/07/25 16:58 76 11/07/25 15:58 75 11/07/25 15:58 98.8 82 16 210/64 99 98.8 Laboratory Tests Test 11/07/25 16:17 White Blood Count 4.5 10^3/uL (4.4-10.8) Medications Medications Dose Ordered Sig/Caren Route Start Time Stop Time Status Last Admin Dose Admin Acetaminophen 650 mg ONCE ONCE PO 11/07/25 19:15 11/07/25 19:16 DC 11/07/25 19:22 650 MG Aspirin 325 mg ONCE ONCE PO 11/07/25 18:15 11/07/25 18:31 DC 11/07/25 19:22 325 MG Nitroglycerin 0.4 mg ONCE ONCE SL 11/07/25 18:15 11/07/25 18:31 DC 11/07/25 19:23 0.4 MG Ondansetron HCl 8 mg ONCE ONCE IV 11/07/25 16:45 11/07/25 16:51 DC 11/07/25 17:47 8 MG Assessment/Plan Assessment/Plan Chest pain Hypertensive urgency Generalized weakness Plan 1. Admit to telemetry unit 2. Breathing treatment 3. Pain control management 4. Management of fluids and electrolytes 5. Consultation for hospitalist 6. Diagnostic tests chest x-ray 7. DVT prophylaxis on aspirin 8. Repeat labs CBC, CMP in a.m. 9. Continue with current medical management 10. Treatment plan discussed with patient/daughter and RN. Patient/daughter verbalized understanding. Plan discussed with: Patient, Daughter (At bedside), Other (RN) My Orders Orders - LUIS JEFF DNP Procedure Category Date Status Time Amlodipine Tablet PHA 11/08/25 In Process (Norvasc Tablet) 10:00 Metoprolol Tartrate PHA 11/07/25 In Process Tablet (Lopressor Ta 22:00 Aspirin Chewable PHA 11/08/25 In Process Tablet 10:00 Gabapentin Capsule PHA 11/07/25 In Process (Neurontin Capsule) 22:00 Allergies SAEED 11/07/25 In Process 19:18 Code Status CODE 11/07/25 Transmitted 19:18 Sodium Chloride Lock PHA 11/07/25 In Process (Saline Lock Ns) 22:00 Oxygen Per Hour RT 11/07/25 Transmitted 19:18 Hydrocodone-Acet PHA 11/07/25 In Process 5/325mg Tab ([place] 19:30 Ondansetron Hcl PHA 11/07/25 In Process (Zofran) 19:30 Docusate Sodium PHA 11/07/25 In Process Capsule (Colace 19:30 Fall Risk Precautions SAEED 11/07/[address] 19:18 Complete Blood Count LAB 11/08/25 Verified 04:00 Comprehensive LAB 11/08/25 Verified Metabolic Panel 04:00 Cardiac DIET 11/08/25 Transmitted Diet-2gna,Lofat,Lochol Breakfast Condition: Serious SAEED 11/07/25 In Process 19:18 Acetaminophen Tablet PHA 11/07/25 In Process (Tylenol Tablet) 19:30 Maintain Bed Rest SAEED 11/07/25 In Process 19:18 Sequential SAEED 11/07/25 In Process Compression Device Admit ADMIT 11/07/25 Transmitted 20:00 Nitroglycerin PHA 11/07/25 Transmitted Sublingual (Ntrostat 20:00 Morphine Sulfate PHA 11/07/25 Transmitted Injection 20:00 Stat Ekg For Chest [facility] 11/07/25 Transmitted Pain 20:00 Notify Md Of Changes [facility] 11/07/25 Transmitted From Base 20:00 [employer] Developer For [facility] 11/07/25 Transmitted 24 Hours 20:00 Emergency Dysrhythmia [facility] 11/07/25 Transmitted Protocol 20:00 Rhythm Strips Once [facility] 11/07/25 Transmitted Every Shift 20:00 Oxygen By Nasal RT 11/07/25 Transmitted Cannula 20:00 Problem List: (1) Chest pain (2) Hypertensive urgency (3) Generalized weakness Date of Service: Nov 07, 2025 Billing Provider: LUIS JEFF DNP Common Visit Codes: [id number] INP/OBS CARE (HIGH) LUIS JEFF DNP Nov 07, 2025 20:01
[2025-11-07] MEDS: HYDROcodone-ACET 5/325MG TAB PO PRN (20:17)
[2025-11-07 20:30] VITALS: PULSE 72; RESP 13; O2SAT 92
[2025-11-07] MEDS: SODIUM CHLOR 0.9% PF (SALINE LOCK) 10ML VIAL/SYR IV SCH (21:28)
[2025-11-07] MEDS: GABAPENTIN 300 MG CAP PO SCH (22:06)
[2025-11-07] MEDS: METOPROLOL TARTRATE 25 MG TAB PO SCH (22:07)
[2025-11-07 23:17] VITALS: BP 150/64; PULSE 63; PULSE 73; RESP 18; TEMP 97.6; O2SAT 96
[2025-11-08] VITALS (8 sets, daily range): BP systolic 118–150; BP diastolic 54–77; PULSE 61–84; RESP 18–20; TEMP 97.3–99.6; O2SAT 87–96
[2025-11-08 07:58] LABS: Hematocrit 38.8 % (36.0-46.0); Hemoglobin 12.9 g/dL (12.2-16.2); Mean Corpuscular Hemoglobin 27.2 pg (28.0-32.0); Mean Corpuscular Volume 82.1 fL (80.0-100.0); Nucleated Red Blood Cells % 0.1 %
[2025-11-08 08:12] LABS: Alanine Aminotransferase 19 U/L (7-40); Alkaline Phosphatase 97 U/L (46-116); Anion Gap 11 (5-15); BUN/Creatinine Ratio 7.8 (10.0-20.0); Calcium 9.5 mg/dL (8.7-10.4); Carbon Dioxide 26 mmol/L (20-31); Chloride 104 mmol/L (98-107); Sodium 141 mmol/L (136-145); Total Protein 7.1 g/dL (5.7-8.2)
[2025-11-08 08:13] LABS: Albumin 4.1 g/dL (3.2-4.8); Bilirubin, Total 0.8 mg/dL (0.2-1.0)
[2025-11-08] MEDS: ACETAMINOPHEN 325 MG TAB PO PRN (08:15)
[2025-11-08 08:16] LABS: Blood Urea Nitrogen 7 mg/dL (9-23); Glucose 66 mg/dL (74-106); Potassium 3.2 mmol/L (3.5-5.1)
--- NOTE | 2025-11-08 12:27 | DVHPN2 ---
Reviewed: Care Plan, H&P, Labs, Medications, Previous Orders, Radiology Changes from previous H/P or p: No Changes Eyes: No Pain, No Vision change, No Conjunctivae inflammation, No Eyelid inflammation, No Other, No Redness ENT: No Ear pain, No Ear discharge, No Nose pain, No Nose discharge, No Nose congestion, No Mouth pain, No Mouth swelling, No Throat pain, No Throat swelling, No Other Cardiovascular: Chest Pain; No Palpitations, No Orthopnea, No Paroxysmal Noc. Dyspnea, No Edema, No Lt Headedness; Other (Hypertension) Respiratory: No Cough, No Dry, No Shortness of breath, No SOB with excertion, No Wheezing, No Hemoptysis, No Pleuritic Pain, No Sputum, No Other Gastrointestinal: No Nausea, No Vomiting, No Abdominal Pain, No Diarrhea, No Constipation, No Melena, No Hematochezia, No Other Genitourinary: No Dysuria, No Frequency, No Incontinence, No Hematuria, No Retention, No Other Musculoskeletal: other (Left hand cast in place); No neck pain, No shoulder pain, No arm pain, No back pain, No hand pain, No leg pain, No foot pain Skin: No Rash, No Lesions, No Jaundice, No Bruising, No Other Objective Vitals Vital Signs Date Time Temp Pulse Resp B/P (MAP) Pulse Ox O2 Delivery O2 Flow Rate FiO2 11/08/25 09:00 99.6 83 18 148/77 (100) 93 99.6 11/08/25 08:00 Room Air* 0 21 Intake/Output Intake and Output 11/08/25 07:00 Intake Total 210 ml Balance 210 ml Intake Oral 210 ml # Voids 2 Medications Current Medications Medications Dose Ordered Sig/Caren Route Start Time Stop Time Status Last Admin Dose Admin Amlodipine Besylate 10 mg DAILY PO 11/08/25 10:00 11/08/25 08:15 10 MG Metoprolol Tartrate 25 mg BID PO 11/07/25 22:00 11/08/25 08:14 25 MG Aspirin 81 mg DAILY PO 11/08/25 10:00 11/08/25 08:15 81 MG Gabapentin 300 mg BID PO 11/07/25 22:00 11/08/25 08:14 300 MG Sodium Chloride 10 ml Q8HR IV 11/07/25 22:00 11/07/25 21:28 10 ML Acetaminophen/ Hydrocodone Bitart 1 tab Q4HP PRN PO 11/07/25 19:30 11/07/25 20:17 1 TAB Ondansetron HCl 4 mg Q4HP PRN IV 11/07/25 19:30 Docusate Sodium 100 mg BIDPRN PRN PO 11/07/25 19:30 Acetaminophen 650 mg Q6HP PRN PO 11/07/25 19:30 11/08/25 08:15 650 MG Nitroglycerin 0.4 mg Q5MINP PRN SL 11/07/25 20:00 Morphine Sulfate 2 mg Q30M PRN IV 11/07/25 20:00 Laboratory Results Laboratory Tests 11/08/25 05:45 Chemistry Test 11/07/25 16:17 11/08/25 05:45 Albumin 4.2 g/dL (3.2-4.8) 4.1 g/dL (3.2-4.8) Calcium Level 9.6 mg/dL (8.7-10.4) 9.5 mg/dL (8.7-10.4) Total Protein 7.3 g/dL (5.7-8.2) 7.1 g/dL (5.7-8.2) LFT Test 11/07/25 16:17 11/08/25 05:45 Alanine Aminotransferase (ALT) 21 U/L (7-40) 19 U/L (7-40) Alkaline Phosphatase 99 U/L (46-116) 97 U/L (46-116) Aspartate Amino Transferase (AST) 27 U/L (13-40) 27 U/L (13-40) Total Bilirubin 0.9 mg/dL (0.2-1.0) 0.8 mg/dL (0.2-1.0) Labs and/or images reviewed: Labs reviewed by me, Image(s) reviewed by me Assessment/Plan Assessment/Plan Chest pain rule out coronary artery disease troponin negative x3 patient has cardiac risk factors, cardiology consult for Hypertensive urgency systolic blood pressure 210: Amlodipine metoprolol Generalized weakness Anxiety History of CVA History of carotid artery stenosis 70% Ordered TSH, lipid panel Time Spent 55 minutes Advanced care planning time 20 minutes Patient is full code RN at bed side 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
[2025-11-08 13:02] LABS: Triglycerides 77 mg/dL (< 150)
[2025-11-08 13:04] LABS: Cholesterol 185 mg/dL (< 200)
[2025-11-08 13:05] LABS: HDL Cholesterol 76 mg/dL (40-59)
[2025-11-08] MEDS: guaiFENesin-DM 100/10mg/5ml SYR PO PRN (14:06)
[2025-11-08] MEDS: POTASSIUM CHL 20 Meq TABLET PO ONE (15:22)
--- NOTE | 2025-11-08 18:37 | DVHINCON2 ---
Date Seen: Nov 08, 2025 Referring Physician MD Mendez Reason for Consultation Chest pain History of Present Illness This is a 75-year-old female patient who presents to the emergency room with chief complaint of chest pain and headache. The patient reports she has been experiencing intermittent chest pain for approximately one year. The patient reports that she began experiencing chest pain on the day of emergency room arrival. She describes it as unprovoked, intermittent, sharp in nature, substernal with associated shortness of breath. She also states that she has been experiencing a headache. The patient reports that she has been having trouble controlling her blood pressures at home with systolic readings at home reaching >260 with her automatic blood pressure cuff. Upon emergency room arrival, the patient was noted to have a blood pressure reaching as high as 210/64. No twelve lead electrocardiogram was found in patient's hard chart or on cardio meteorological observer. A twelve lead electrocardiogram was ordered at time of assessment and reveals normal sinus rhythm without any significant ST segment changes. Initial troponin level of 8ng/L with down trend thereafter. Sig nificant past medical history includes hypertension, dyslipidemia, bilateral carotid artery stenosis, TIA, and COPD. The patient reports compliance with her antihypertensive medications at home. The patient follows up with her primary administrative court justice in the outpatient setting. Per patient report, she underwent a nuclear stress test at 's office approximately one month ago and findings were negative. Past Medical History Past medical history reviewed. No other significant than mentioned above. Past Surgical History Bilateral hip replacement Hysterectomy Family History: FH: epilepsy G8 MOTHER FH: leukemia G8 FATHER Family history: Hypertension G8 MOTHER Stroke G8 MOTHER Family History Family history reviewed. Social History Denies the use of tobacco, alcohol or illicit drugs. Allergies: Coded Allergies: NO KNOWN ALLERGIES (Unverified , 05/31/11) Home Meds Active Scripts Amlodipine Besylate (NORVASC TABLET) 5 Mg Tb, 10 MG PO DAILY for 30 Days, #60 TAB 1 Refill Prov:DIANE ALVAREZ RESIDENT 06/21/25 Clopidogrel Bisulfate (CLOPIDOGREL) 75 Mg Tab, 75 MG PO DAILY for 21 Days, #21 TAB Prov:DIANE ALVAREZ RESIDENT 06/21/25 Aspirin (Aspirin Low Dose) 81 Mg Tab, 81 MG PO DAILY for 30 Days, #30 TAB 2 Refills Prov:DIANE ALVAREZ RESIDENT 06/21/25 Atorvastatin Calcium (ATORVASTATIN CALCIUM) 20 Mg Tab, 80 MG PO HS for 30 Days, #120 TAB 2 Refills Prov:DIANE ALVAREZ RESIDENT 06/21/25 Amlodipine Besylate (Amlodipine Besylate) 10 Mg Tab, 10 MG PO DAILY for 30 Days, #30 TAB 3 Refills Prov:RAHEEM BIRD MD 05/20/24 Meclizine HCl (Meclizine 25) 25 Mg Tab, 25 MG PO TIDP PRN for 7 Days, #21 TAB Prov:RAHEEM BIRD MD 05/20/24 Albuterol Sulfate (VENTOLIN MDI) 90 Mcg Ih, 90 MCG IN Q6HPRN PRN for 30 Days, #30 INH Prov:KAL HORVATH MD 11/20/22 Pantoprazole Sodium Sesquihydr (Pantoprazole Sodium) 40 Mg Tab, 40 MG PO BID for 30 Days, #60 TAB Prov:KAL HORVATH MD 11/20/22 Aspirin (Asa) 81 Mg Ch, 81 MG PO DAILY, #30 TAB Prov:RADHA HAQ MD 10/04/18 Reported Medications Hydrochlorothiazide (Hydrochlorothiazide) 25 Mg Tab, 25 MG PO DAILY, TAB 05/19/24 Furosemide (Furosemide) 40 Mg Tab, 1 TAB PO DAILY 05/19/24 Gabapentin (Gabapentin) 800 Mg Tab, TAB PO DAILY 06/13/23 Ascorbic Acid (VITAMIN C TABLET) 500 Mg Tb, 1 TAB PO DAILY, #30 TAB 11/19/22 Cholecalciferol (VITAMIN D3) 2,000 Unit Tab, 1 TAB PO DAILY, #30 TAB 5 Refills 11/19/22 Metoprolol Succinate (Metoprolol Succinate Er) 50 Mg Tab, 100 MG PO DAILY, #30 TAB 5 Refills 03/13/17 Home Meds Home medications reviewed. Current Medications Current Medications Medications (Trade) Dose Ordered Sig/Caren Route PRN Reason Start Time Stop Time Status Last Admin Amlodipine Besylate (Norvasc Tablet) 10 mg DAILY PO 11/08/25 10:00 11/08/25 08:15 Metoprolol Tartrate (Lopressor Tablet) 25 mg BID PO 11/07/25 22:00 11/08/25 08:14 Aspirin 81 mg DAILY PO 11/08/25 10:00 11/08/25 08:15 Gabapentin (Neurontin Capsule) 300 mg BID PO 11/07/25 22:00 11/08/25 08:14 Sodium Chloride (Saline Lock Ns) 10 ml Q8HR IV 11/07/25 22:00 11/08/25 14:03 Acetaminophen/ Hydrocodone Bitart ([place] 5/325MG Tab) 1 tab Q4HP PRN PO MODERATE PAIN (4-6 PAIN SCALE) 11/07/25 19:30 11/08/25 14:21 Ondansetron HCl (Zofran) 4 mg Q4HP PRN IV NAUSEA / VOMITING 11/07/25 19:30 Docusate Sodium (Colace Capsule) 100 mg BIDPRN PRN PO FOR CONSTIPATION 11/07/25 19:30 Acetaminophen (Tylenol Tablet) 650 mg Q6HP PRN PO PAIN SCALE 1-3 OR TEMP>100.4 11/07/25 19:30 11/08/25 08:15 Nitroglycerin (Ntrostat Sublingual) 0.4 mg Q5MINP PRN SL FOR CHEST PAIN 11/07/25 20:00 Morphine Sulfate 2 mg Q30M PRN IV FOR CHEST PAIN 11/07/25 20:00 Guaifenesin/ Dextromethorphan (Robitussin-Dm Liquid) 10 ml Q8HPRN PRN PO FOR COUGH 11/08/25 12:45 11/08/25 14:06 Review of Systems Constitutional: No symptom reported Ears, Nose, & Throat: No symptom reported Eyes: No symptom reported Neurological: Take Pulmonary/Respiratory: Shortness of breath Cardiovascular: Chest pain Gastrointestinal: No symptom reported Genitourinary: No symptom reported Musculoskeletal: No symptom reported Skin: No symptom reported Psychiatric: No symptom reported Endocrine: No symptom reported Hematologic/Lymphatic: No symptom reported Vital Signs Vital Signs Date Time Temp Pulse Resp B/P (MAP) Pulse Ox O2 Delivery O2 Flow Rate FiO2 11/08/25 17:00 98.9 82 19 118/54 (75) 87 98.9 11/08/25 08:00 Room Air* 0 21 Physical Exam General Appearance: Cooperative. Well-developed. Well-nourished. No acute distress. Pulmonary/Respiratory: Clear, bilateral breaths sounds. Cardiovascular/Chest: Regular rate and rhythm. Peripheral Pulses: 2+ Radial (R). 2+ Radial (L). 2+ Pedal (R). 2+ Pedal (L) Abdominal Exam: Normal bowel sounds. . Ankle Exam: Negative ankle edema Lower extremities: Negative lower extremity edema Neuro/Mental Status: A/OX4, coherent. Thoughts/Psych: Normal thought pattern. Appropriate mood and affect. Good judgment and insight. Appearance: No acute distress. Skin Exam: Normal inspection. Normal color. Warm and dry. Labs/Diagnostic Data Labs Test 11/08/25 15:46 11/08/25 05:45 Range/Units Troponin I High Sensitivity 7 </=34 ng/L White Blood Count 4.7 4.4-10.8 10^3/uL Red Blood Count 4.73 4.0-5.20 10^6/uL Hemoglobin 12.9 12.2-16.2 g/dL Hematocrit 38.8 36.0-46.0 % Mean Corpuscular Volume 82.1 80.0-100.0 fL Mean Corpuscular Hemoglobin 27.2 L 28.0-32.0 pg Mean Corpuscular Hemoglobin Concent 33.1 32.0-36.0 g/dL Red Cell Distribution Width 15.4 H 11.8-14.3 % Platelet Count 168 140-450 10^3/uL Mean Platelet Volume 9.6 6.9-10.8 fL Neutrophils (%) (Auto) 77.4 37.0-80.0 % Lymphocytes (%) (Auto) 10.3 10.0-50.0 % Monocytes (%) (Auto) 10.9 0.0-12.0 % Eosinophils (%) (Auto) 0.7 0.0-7.0 % Basophils (%) (Auto) 0.7 0.0-2.0 % Neutrophils # (Auto) 3.6 1.6-8.6 10 ^3/uL Lymphocytes # (Auto) 0.5 0.4-5.4 10 ^3/uL Monocytes # (Auto) 0.5 0-1.3 10 ^3/uL Eosinophils # (Auto) 0 0-0.8 10 ^3/uL Basophils # (Auto) 0 0-0.2 10 ^3/uL Nucleated Red Blood Cells 0.1 % Sodium Level 141 136-145 mmol/L Potassium Level 3.2 L 3.5-5.1 mmol/L Chloride Level 104 98-107 mmol/L Carbon Dioxide Level 26 20-31 mmol/L Anion Gap 11 5-15 Blood Urea Nitrogen 7 L 9-23 mg/dL Creatinine 0.90 0.550-1.02 mg/dL Glomerular Filtration Rate Calc 67 >90 mL/min BUN/Creatinine Ratio 7.8 L 10.0-20.0 Serum Glucose 66 L 74-106 mg/dL Calcium Level 9.5 8.7-10.4 mg/dL Total Bilirubin 0.8 0.2-1.0 mg/dL Aspartate Amino Transferase (AST) 27 13-40 U/L Alanine Aminotransferase (ALT) 19 7-40 U/L Alkaline Phosphatase 97 46-116 U/L Total Protein 7.1 5.7-8.2 g/dL Albumin 4.1 3.2-4.8 g/dL Triglycerides Level 77 < 150 mg/dL Cholesterol Level 185 < 200 mg/dL LDL Cholesterol 87 < 100 mg/dL HDL Cholesterol 76 H 40-59 mg/dL Thyroid Stimulating Hormone (TSH) 0.18 L 0.55-4.78 uIU/mL Assessment Chest pain likely in the setting of hypertensive urgency Rule out structural heart disease Dyslipidemia History bilateral carotid stenosis Hypokalemia History of TIA COPD Obesity Plan/Recommendation We will continue with the following plan/recommendations (): Patient seen and examined at bedside with . We will proceed with obtaining a transthoracic echocardiogram to evaluate cardiac function. Given patient's clinical presentation, chest pain likely in keeping with hypertensive urgency. Given negative troponin level, and unremarkable twelve lead reginald ctrocardiogram, doubt ACS. The patient also states that she had a nuclear stress test one month ago with her primary administrative court justice, which was found to be negative per patient report. In the setting of an unremarkable transthoracic echocardiogram, there is no further inpatient cardiac workup indicated at this time. Top And Seat Cover Fitter has instructed the patient to follow up with her primary administrative court justice in the outpatient setting within 1-2 weeks post discharge. Continue with aggressive blood pressure control; recommend switching amlodipine to nifedipine for tighter blood pressure control and up titrate as tolerated. Thank you for allowing us to care for this patient. Please call with any questions or concerns. Critical care time spent: 44 minutes Plan discussed with: Patient NYHA Physical activity limitations: NA Date of Service: Nov 08, 2025 Billing Provider: MAGALI LIVINGSTON Cardiology Common Codes: [id number] INP/OBS CARE (High) Cardiology Consultation Codes: [id number] CONSULT <45MIN MAGALI LIVINGSTON Nov 08, 2025 18:37
--- NOTE | 2025-11-08 19:14 | DVHINCON2 ---
Date Seen: Nov 08, 2025 Referring Physician MD Mendez Reason for Consultation Chest pain History of Present Illness This is a 75-year-old female with a past medical history of hypertension, dyslipidemia, bilateral carotid artery stenosis, TIA, and COPD. The patient reports compliance with her antihypertensive medications at home who presents to the emergency room with chief complaint of chest pain and headache. The patient reports she has been experiencing intermittent chest pain for approximately one year. The patient reports that she began experiencing chest pain on the day of emergency room arrival. She describes it as unprovoked, intermittent, sharp in nature, substernal with associated shortness of breath. She also states that she has been experiencing a headache. The patient reports that she has been having trouble controlling her blood pressures at home with systolic readings at home reaching >260 with her automatic blood pressure cuff. Upon emergency room arrival, the patient was noted to have a blood pressure reaching as high as 210/ 64. No twelve lead electrocardiogram was found in patient's hard chart or on cardio fountain server. A twelve lead electrocardiogram was ordered at time of assessment and reveals normal sinus rhythm without any significant ST segment changes. Initial troponin level of 8ng/L with down trend thereafter. The patient follows up with her primary ice house supervisor in the outpatient setting. Per patient report, she underwent a nuclear stress test at 's office approximately one month ago and findings were negative. Patient was admitted to the hospital. I am asked to consult on this patient. Family History: FH: epilepsy G8 MOTHER FH: leukemia G8 FATHER Family history: Hypertension G8 MOTHER Stroke G8 MOTHER Allergies: Coded Allergies: NO KNOWN ALLERGIES (Unverified , 05/31/11) Home Meds Active Scripts Amlodipine Besylate (NORVASC TABLET) 5 Mg Tb, 10 MG PO DAILY for 30 Days, #60 TAB 1 Refill Prov:DIANE ALVAREZ RESIDENT 06/21/25 Clopidogrel Bisulfate (CLOPIDOGREL) 75 Mg Tab, 75 MG PO DAILY for 21 Days, #21 TAB Prov:DIANE ALVAREZ RESIDENT 06/21/25 Aspirin (Aspirin Low Dose) 81 Mg Tab, 81 MG PO DAILY for 30 Days, #30 TAB 2 Refills Prov:DIANE ALVAREZ RESIDENT 06/21/25 Atorvastatin Calcium (ATORVASTATIN CALCIUM) 20 Mg Tab, 80 MG PO HS for 30 Days, #120 TAB 2 Refills Prov:DIANE ALVAREZ RESIDENT 06/21/25 Amlodipine Besylate (Amlodipine Besylate) 10 Mg Tab, 10 MG PO DAILY for 30 Days, #30 TAB 3 Refills Prov:RAHEEM BIRD MD 05/20/24 Meclizine HCl (Meclizine 25) 25 Mg Tab, 25 MG PO TIDP PRN for 7 Days, #21 TAB Prov:RAHEEM BIRD MD 05/20/24 Albuterol Sulfate (VENTOLIN MDI) 90 Mcg Ih, 90 MCG IN Q6HPRN PRN for 30 Days, #30 INH Prov:KAL HORVATH MD 11/20/22 Pantoprazole Sodium Sesquihydr (Pantoprazole Sodium) 40 Mg Tab, 40 MG PO BID for 30 Days, #60 TAB Prov:KAL HORVATH MD 11/20/22 Aspirin (Asa) 81 Mg Ch, 81 MG PO DAILY, #30 TAB Prov:RADHA HAQ MD 10/04/18 Reported Medications Hydrochlorothiazide (Hydrochlorothiazide) 25 Mg Tab, 25 MG PO DAILY, TAB 05/19/24 Furosemide (Furosemide) 40 Mg Tab, 1 TAB PO DAILY 05/19/24 Gabapentin (Gabapentin) 800 Mg Tab, TAB PO DAILY 06/13/23 Ascorbic Acid (VITAMIN C TABLET) 500 Mg Tb, 1 TAB PO DAILY, #30 TAB 11/19/22 Cholecalciferol (VITAMIN D3) 2,000 Unit Tab, 1 TAB PO DAILY, #30 TAB 5 Refills 11/19/22 Metoprolol Succinate (Metoprolol Succinate Er) 50 Mg Tab, 100 MG PO DAILY, #30 TAB 5 Refills 03/13/17 Current Medications Current Medications Medications (Trade) Dose Ordered Sig/Caren Route PRN Reason Start Time Stop Time Status Last Admin Amlodipine Besylate (Norvasc Tablet) 10 mg DAILY PO 11/08/25 10:00 11/08/25 18:32 DC 11/08/25 08:15 Metoprolol Tartrate (Lopressor Tablet) 25 mg BID PO 11/07/25 22:00 11/08/25 08:14 Aspirin 81 mg DAILY PO 11/08/25 10:00 11/08/25 08:15 Gabapentin (Neurontin Capsule) 300 mg BID PO 11/07/25 22:00 11/08/25 08:14 Sodium Chloride (Saline Lock Ns) 10 ml Q8HR IV 11/07/25 22:00 11/08/25 14:03 Acetaminophen/ Hydrocodone Bitart ([place] 5/325MG Tab) 1 tab Q4HP PRN PO MODERATE PAIN (4-6 PAIN SCALE) 11/07/25 19:30 11/08/25 14:21 Ondansetron HCl (Zofran) 4 mg Q4HP PRN IV NAUSEA / VOMITING 11/07/25 19:30 Docusate Sodium (Colace Capsule) 100 mg BIDPRN PRN PO FOR CONSTIPATION 11/07/25 19:30 Acetaminophen (Tylenol Tablet) 650 mg Q6HP PRN PO PAIN SCALE 1-3 OR TEMP>100.4 11/07/25 19:30 11/08/25 08:15 Nitroglycerin (Ntrostat Sublingual) 0.4 mg Q5MINP PRN SL FOR CHEST PAIN 11/07/25 20:00 Morphine Sulfate 2 mg Q30M PRN IV FOR CHEST PAIN 11/07/25 20:00 Guaifenesin/ Dextromethorphan (Robitussin-Dm Liquid) 10 ml Q8HPRN PRN PO FOR COUGH 11/08/25 12:45 11/08/25 14:06 Nifedipine (Procardia Xl (Time-Release)) 30 mg DAILY PO 11/09/25 10:00 UNV Review of Systems Constitutional: No symptom reported Ears, Nose, & Throat: No symptom reported Eyes: No symptom reported Neurological: Take Pulmonary/Respiratory: Shortness of breath Cardiovascular: Chest pain Gastrointestinal: No symptom reported Genitourinary: No symptom reported Musculoskeletal: No symptom reported Skin: No symptom reported Psychiatric: No symptom reported Endocrine: No symptom reported Hematologic/Lymphatic: No symptom reported Vital Signs Vital Signs Date Time Temp Pulse Resp B/P (MAP) Pulse Ox O2 Delivery O2 Flow Rate FiO2 11/08/25 17:00 98.9 82 19 118/54 (75) 87 98.9 11/08/25 08:00 Room Air* 0 21 Physical Exam GENERAL: Alert and oriented x 3. No acute distress. EYES: PERRL, EOMI. Anicteric. HENT: Moist mucous membranes. LUNGS: Clear to auscultation bilaterally. CARDIOVASCULAR: Regular rate and rhythm. ABDOMEN: Soft, nontender and nondistended. EXTREMITIES: No edema. NEUROLOGIC: No focal neurological deficits. SKIN: Warm, dry. Labs/Diagnostic Data Labs Test 11/08/25 15:46 11/08/25 05:45 Range/Units Troponin I High Sensitivity 7 </=34 ng/L White Blood Count 4.7 4.4-10.8 10^3/uL Red Blood Count 4.73 4.0-5.20 10^6/uL Hemoglobin 12.9 12.2-16.2 g/dL Hematocrit 38.8 36.0-46.0 % Mean Corpuscular Volume 82.1 80.0-100.0 fL Mean Corpuscular Hemoglobin 27.2 L 28.0-32.0 pg Mean Corpuscular Hemoglobin Concent 33.1 32.0-36.0 g/dL Red Cell Distribution Width 15.4 H 11.8-14.3 % Platelet Count 168 140-450 10^3/uL Mean Platelet Volume 9.6 6.9-10.8 fL Neutrophils (%) (Auto) 77.4 37.0-80.0 % Lymphocytes (%) (Auto) 10.3 10.0-50.0 % Monocytes (%) (Auto) 10.9 0.0-12.0 % Eosinophils (%) (Auto) 0.7 0.0-7.0 % Basophils (%) (Auto) 0.7 0.0-2.0 % Neutrophils # (Auto) 3.6 1.6-8.6 10 ^3/uL Lymphocytes # (Auto) 0.5 0.4-5.4 10 ^3/uL Monocytes # (Auto) 0.5 0-1.3 10 ^3/uL Eosinophils # (Auto) 0 0-0.8 10 ^3/uL Basophils # (Auto) 0 0-0.2 10 ^3/uL Nucleated Red Blood Cells 0.1 % Sodium Level 141 136-145 mmol/L Potassium Level 3.2 L 3.5-5.1 mmol/L Chloride Level 104 98-107 mmol/L Carbon Dioxide Level 26 20-31 mmol/L Anion Gap 11 5-15 Blood Urea Nitrogen 7 L 9-23 mg/dL Creatinine 0.90 0.550-1.02 mg/dL Glomerular Filtration Rate Calc 67 >90 mL/min BUN/Creatinine Ratio 7.8 L 10.0-20.0 Serum Glucose 66 L 74-106 mg/dL Calcium Level 9.5 8.7-10.4 mg/dL Total Bilirubin 0.8 0.2-1.0 mg/dL Aspartate Amino Transferase (AST) 27 13-40 U/L Alanine Aminotransferase (ALT) 19 7-40 U/L Alkaline Phosphatase 97 46-116 U/L Total Protein 7.1 5.7-8.2 g/dL Albumin 4.1 3.2-4.8 g/dL Triglycerides Level 77 < 150 mg/dL Cholesterol Level 185 < 200 mg/dL LDL Cholesterol 87 < 100 mg/dL HDL Cholesterol 76 H 40-59 mg/dL Thyroid Stimulating Hormone (TSH) 0.18 L 0.55-4.78 uIU/mL Assessment Chest pain likely in the setting of hypertensive urgency. Rule out structural heart disease. Dyslipidemia. History bilateral carotid stenosis. Hypokalemia. History of TIA. COPD. Obesity. Plan/Recommendation I agree with your ongoing assessment and care of plan. Patient has been seen by Jennifer Portillo NP on my behalf, her and I discussed the plan with the patient. We will proceed with obtaining a transthoracic echocardiogram to evaluate cardiac function. Given patient's clinical presentation, chest pain likely in keeping with hypertensive urgency. Given negative troponin level, and unremarkable twelve lead electrocardiogram, doubt ACS. The patient also states that she had a nuclear stress test one month ago with her primary ice house supervisor, which was found to be negative per patient report. In the setting of an unremarkable transthoracic echocardiogram, there is no further inpatient cardiac workup indicated at this time. I have instructed the patient to follow up with her primary ice house supervisor in the outpatient setting within 1-2 weeks post discharge. Continue with aggressive blood pressure control; recommend switching amlodipine to nifedipine for tighter blood pressure control and up titrate as tolerated. Additional plan as per the hospital course. Plan discussed with: Patient NYHA Physical activity limitations: NA Date of Service: Nov 08, 2025 Billing Provider: AICHA VINCENT MD Cardiology Common Codes: [id number] INP/OBS CARE (High) Cardiology Consultation Codes: [id number] CONSULT <45MIN AICHA VINCENT MD Nov 08, 2025 18:38
--- NOTE | 2025-11-08 21:04 | ECG ---
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
--- NOTE | 2025-11-08 21:04 | ECG ---
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
--- NOTE | 2025-11-08 21:04 | ECG ---
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
[2025-11-09 01:00] VITALS: BP 128/59; PULSE 78; RESP 18; TEMP 98; O2SAT 90
[2025-11-09 05:00] VITALS: BP 117/53; PULSE 74; RESP 18; TEMP 98; O2SAT 91
--- NOTE | 2025-11-09 07:50 | ECG ---
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
[2025-11-09 08:00] VITALS: PULSE 82
[2025-11-09 08:10] VITALS: BP 110/56; PULSE 76; RESP 17; TEMP 99; O2SAT 93
[2025-11-09 12:15] VITALS: BP 116/58; PULSE 68; RESP 17; TEMP 98.5; O2SAT 93
--- NOTE | 2025-11-09 12:32 | DVHPN2 ---
Reviewed: Care Plan, H&P, Labs, Medications, Previous Orders, Radiology Changes from previous H/P or p: No Changes Eyes: No Pain, No Vision change, No Conjunctivae inflammation, No Eyelid inflammation, No Other, No Redness ENT: No Ear pain, No Ear discharge, No Nose pain, No Nose discharge, No Nose congestion, No Mouth pain, No Mouth swelling, No Throat pain, No Throat swelling, No Other Cardiovascular: Chest Pain; No Palpitations, No Orthopnea, No Paroxysmal Noc. Dyspnea, No Edema, No Lt Headedness; Other (Hypertension) Respiratory: No Cough, No Dry, No Shortness of breath, No SOB with excertion, No Wheezing, No Hemoptysis, No Pleuritic Pain, No Sputum, No Other Gastrointestinal: No Nausea, No Vomiting, No Abdominal Pain, No Diarrhea, No Constipation, No Melena, No Hematochezia, No Other Genitourinary: No Dysuria, No Frequency, No Incontinence, No Hematuria, No Retention, No Other Musculoskeletal: other (Left hand cast in place); No neck pain, No shoulder pain, No arm pain, No back pain, No hand pain, No leg pain, No foot pain Skin: No Rash, No Lesions, No Jaundice, No Bruising, No Other Objective Vitals Vital Signs Date Time Temp Pulse Resp B/P (MAP) Pulse Ox O2 Delivery O2 Flow Rate FiO2 11/09/25 08:12 80 99/57 11/09/25 08:10 99.0 17 93 99.0 11/09/25 07:45 Room Air* 0 21 Intake/Output Intake and Output 11/09/25 07:00 Intake Total 500 ml Balance 500 ml Intake Oral 500 ml # Voids 5 # Bowel Movements 1 Medications Current Medications Medications Dose Ordered Sig/Caren Route Start Time Stop Time Status Last Admin Dose Admin Metoprolol Tartrate 25 mg BID PO 11/07/25 22:00 11/08/25 22:31 25 MG Aspirin 81 mg DAILY PO 11/08/25 10:00 11/09/25 08:11 81 MG Gabapentin 300 mg BID PO 11/07/25 22:00 11/09/25 08:11 300 MG Sodium Chloride 10 ml Q8HR IV 11/07/25 22:00 11/09/25 06:19 10 ML Acetaminophen/ Hydrocodone Bitart 1 tab Q4HP PRN PO 11/07/25 19:30 11/09/25 08:11 1 TAB Ondansetron HCl 4 mg Q4HP PRN IV 11/07/25 19:30 Docusate Sodium 100 mg BIDPRN PRN PO 11/07/25 19:30 Acetaminophen 650 mg Q6HP PRN PO 11/07/25 19:30 11/08/25 08:15 650 MG Nitroglycerin 0.4 mg Q5MINP PRN SL 11/07/25 20:00 Morphine Sulfate 2 mg Q30M PRN IV 11/07/25 20:00 Guaifenesin/ Dextromethorphan 10 ml Q8HPRN PRN PO 11/08/25 12:45 11/08/25 14:06 10 ML Nifedipine 30 mg DAILY PO 11/09/25 10:00 Laboratory Results Laboratory Tests 11/08/25 05:45 Labs and/or images reviewed: Labs reviewed by me, Image(s) reviewed by me Assessment/Plan Assessment/Plan Chest pain coronary artery disease ruled out, troponin negative x3 patient has cardiac risk factors, cardiology consult for appreciated cleared for discharge advised to follow up with the patient's primary investigator operator Hypertensive urgency systolic blood pressure 210: Amlodipine metoprolol Generalized weakness Anxiety History of CVA History of carotid artery stenosis 70% Ordered TSH, lipid panel Time Spent 55 minutes Advanced care planning time 20 minutes Patient is full code RN at bed side Patient's investigator operator Dr. Cesar Plan discussed with: Patient My Orders Orders - LIZ VELIZ MD Procedure Category Date Status Time Guaifenesin-Dextromet PHA 11/08/25 In Process Liquid (Robitussin 12:45 Date of Service: Nov 09, 2025 Billing Provider: LIZ VELIZ MD Common Visit Codes: [id number] INP/OBS CARE(HIGH) LIZ VELIZ MD Nov 09, 2025 12:31
--- NOTE | 2025-11-09 12:38 | DVHDS2 ---
Discharge Summary Date of Admission Nov 07, 2025 at 20:00 Date of Discharge: Nov 09, 2025 Admitting Diagnosis Chest pain Wounds: None Labs/Diagnostic Data: Laboratory Results Test 11/08/25 15:46 11/08/25 05:45 Troponin I High Sensitivity 7 ng/L (</=34) White Blood Count 4.7 10^3/uL (4.4-10.8) Red Blood Count 4.73 10^6/uL (4.0-5.20) Hemoglobin 12.9 g/dL (12.2-16.2) Hematocrit 38.8 % (36.0-46.0) Mean Corpuscular Volume 82.1 fL (80.0-100.0) Mean Corpuscular Hemoglobin 27.2 pg (28.0-32.0) Mean Corpuscular Hemoglobin Concent 33.1 g/dL (32.0-36.0) Red Cell Distribution Width 15.4 % (11.8-14.3) Platelet Count 168 10^3/uL (140-450) Mean Platelet Volume 9.6 fL (6.9-10.8) Neutrophils (%) (Auto) 77.4 % (37.0-80.0) Lymphocytes (%) (Auto) 10.3 % (10.0-50.0) Monocytes (%) (Auto) 10.9 % (0.0-12.0) Eosinophils (%) (Auto) 0.7 % (0.0-7.0) Basophils (%) (Auto) 0.7 % (0.0-2.0) Neutrophils # (Auto) 3.6 10 ^3/uL (1.6-8.6) Lymphocytes # (Auto) 0.5 10 ^3/uL (0.4-5.4) Monocytes # (Auto) 0.5 10 ^3/uL (0-1.3) Eosinophils # (Auto) 0 10 ^3/uL (0-0.8) Basophils # (Auto) 0 10 ^3/uL (0-0.2) Nucleated Red Blood Cells 0.1 % Sodium Level 141 mmol/L (136-145) Potassium Level 3.2 mmol/L (3.5-5.1) Chloride Level 104 mmol/L (98-107) Carbon Dioxide Level 26 mmol/L (20-31) Anion Gap 11 (5-15) Blood Urea Nitrogen 7 mg/dL (9-23) Creatinine 0.90 mg/dL (0.550-1.02) Glomerular Filtration Rate Calc 67 mL/min (>90) BUN/Creatinine Ratio 7.8 (10.0-20.0) Serum Glucose 66 mg/dL (74-106) Calcium Level 9.5 mg/dL (8.7-10.4) Total Bilirubin 0.8 mg/dL (0.2-1.0) Aspartate Amino Transferase (AST) 27 U/L (13-40) Alanine Aminotransferase (ALT) 19 U/L (7-40) Alkaline Phosphatase 97 U/L (46-116) Total Protein 7.1 g/dL (5.7-8.2) Albumin 4.1 g/dL (3.2-4.8) Triglycerides Level 77 mg/dL (< 150) Cholesterol Level 185 mg/dL (< 200) LDL Cholesterol 87 mg/dL (< 100) HDL Cholesterol 76 mg/dL (40-59) Thyroid Stimulating Hormone (TSH) 0.18 uIU/mL (0.55-4.78) Other Laboratory Tests 11/08/25 05:45 Brief Hx & Hospital Course: 75-year-old female with a history of hypertension anxiety CVA complaining of chest pain blood pressure was high 210 treated with the amlodipine metoprolol troponin negative x3 patient had recent Cardiolite stress test by her primary composition floor layer which was negative seen by composition floor layer Dr. Shah advised to discharge the patient patient is asymptomatic at the time of discharge. TSH is slightly low. Total cholesterol high , HDL also high. Consults/Reason for consult Cardiology Dr. Madhuri Shah Operations or Procedures none Condition at Discharge: Fair Final Diagnosis/Problems List Chest pain coronary artery disease ruled out, troponin negative x3 patient has cardiac risk factors, cardiology consult for appreciated cleared for discharge advised to follow up with the patient's primary composition floor layer Hypertensive urgency systolic blood pressure 210: Amlodipine metoprolol Generalized weakness Anxiety History of CVA History of carotid artery stenosis 70% Ordered TSH, lipid panel Discharge Disposition: Home Discharge Instruct/Medications Diet: Cardiac 2g Na,low cholest Activity: Light activity Follow Up/Referral: Resume all previous home medications Follow up with your primary Dr and your composition floor layer Dr. Devineni Medications: None Scheduled Amlodipine Besylate (Amlodipine Besylate), 10 MG PO DAILY Amlodipine Besylate (Norvasc Tablet), 10 MG PO DAILY Ascorbic Acid (Vitamin C Tablet), 1 TAB PO DAILY, (Reported) Aspirin (Asa), 81 MG PO DAILY Aspirin (Aspirin Low Dose), 81 MG PO DAILY Atorvastatin Calcium (Atorvastatin Calcium), 80 MG PO HS Cholecalciferol (Vitamin D3), 1 TAB PO DAILY, (Reported) Clopidogrel Bisulfate (Clopidogrel), 75 MG PO DAILY Furosemide (Furosemide), 1 TAB PO DAILY, (Reported) Gabapentin (Gabapentin), TAB PO DAILY, (Reported) Hydrochlorothiazide (Hydrochlorothiazide), 25 MG PO DAILY, (Reported) Metoprolol Succinate (Metoprolol Succinate Er), 100 MG PO DAILY, (Reported) Pantoprazole Sodium Sesquihydr (Pantoprazole Sodium), 40 MG PO BID Scheduled PRN Albuterol Sulfate (Ventolin Mdi), 90 MCG IN Q6HPRN PRN Meclizine HCl (Meclizine 25), 25 MG PO TIDP PRN 39 (Time taken for discharge summary 39 minutes) Discharge Statement: "Patient was advised to return to the ER or call 911 if any headaches, dizziness, shortness of breath, chest pain, abdominal pain, bleeding, fevers, or worsening of medical condition. Patient was counseled about treatment plan, medications, possible side effects, patientverbalized understanding. All questions were answered to the best of my ability. This discharge took greater then 30 minutes in planning, reviewing documentation, counseling the patient, and discussing with other team members." ASSESSMENT ASSESSMENT Assessment Chest pain coronary artery disease ruled out, troponin negative x3 patient has cardiac risk factors, cardiology consult for appreciated cleared for discharge advised to follow up with the patient's primary composition floor layer Hypertensive urgency systolic blood pressure 210: Amlodipine metoprolol Generalized weakness Anxiety History of CVA History of carotid artery stenosis 70% Ordered TSH, lipid panel Date of Service: Nov 09, 2025 Billing Provider: LIZ VELIZ MD Common Visit Codes: [id number] INP/OBS CARE(HIGH), 95509-TEY/OBS DISCH DAY >30min LIZ VELIZ MD Nov 09, 2025 12:38
[2025-11-09 13:45] VITALS: BP 99/57; PULSE 80; TEMP 37.2
--- NOTE | 2025-11-09 14:45 | DVHSR ---
APPROVED REPORT EXAM: Two-dimensional and M-mode echocardiogram with Doppler and color Doppler. Blood Pressure: 117/53 mmHg INDICATION Evaluate cardiac function RISK FACTORS Height: 5', Weight: 169 DIMENSIONS LVDd 4.5 (3.8-5.7cm) LA (2D) 3.1 (1.9-4.0cm) Aortic Root 2.5 (2.0-3.7cm) LVDs 2.4 (2.5-4.0cm) LA (MM) (1.9-4.0cm) Aortic Cusp Exc 1.7 (1.5-2.0cm) EF (%) 78.0 (55-70%) Rt. Atrium 3.8 (1.9-4.0cm) Asc. Aorta 2.8 cm IVSd 1.0 (0.7-1.1cm) RV (D) 3.0 (1.8-2.4cm) PWd 0.8 (0.7-1.1cm) Mitral Valve Mitral Mitral Stenosis E wave 0.65m/s MV Mean GR. mmHg A wave 1.03m/s MV Peak GR. mmHg E/A ratio 0.6 2D MVA cm2 DECEL Time 308ms PRESS 1/2 Time ms Aortic Valve Aortic Valve Aortic Stenosis V1 1.26m/s AO Mean GR. mmHg LVOT Diameter 2.0 (1.8-2.4cm) Doppler TAO 0.00cm2 Pulmonic Valve V2 0.95m/s Tricuspid Valve TR Velocity 2.98m/s RVSP 44mmHg Conclusion lvef 60% severe lvh mild pulm htn, left atrium enlarged
--- NOTE | 2025-11-09 16:52 | ECG ---
[facility] Test Date: 2025-11-08 Test Time: 14:32:12 Pat Name: OCTAVIO MORRIS Department: Room: [facility]7T B Gender: F Returns Clerk: JONAS : 1950 Requested By: AICHA VINCENT Order Number: [id number] Reading MD: Measurements Intervals [place] Rate: 84 P: -18 OK: 154 QRS: 7 QRSD: 81 T: 72 QT: 335 QTc: 396 Interpretive Statements Sinus rhythm Borderline T wave abnormalities Please click the below link to view image of tracing.
--- NOTE | 2025-11-10 00:51 | DVHPN2 ---
Progress Note - Dictate Date Seen: Nov 09, 2025 Medical Necessity Reason Pt with a Central, PICC or Fol: No Subjective Patient was seen and evaluated in follow up. no overnight events. Echocardiogram shows LV EF of 60%. Patient is cardiac stable for discharge. Telemetry reviewed. vital signs Vital Sign Date Time Temp Pulse Resp B/P (MAP) Pulse Ox O2 Delivery O2 Flow Rate FiO2 11/09/25 13:45 37.2 80 11/09/25 12:15 17 116/58 (77) 93 11/09/25 07:45 Room Air* 0 21 objective GENERAL: Alert and oriented x 3. No acute distress. EYES: PERRL, EOMI. Anicteric. HENT: Moist mucous membranes. LUNGS: Clear to auscultation bilaterally. CARDIOVASCULAR: Regular rate and rhythm. ABDOMEN: Soft, nontender and nondistended. EXTREMITIES: No edema. NEUROLOGIC: No focal neurological deficits. SKIN: Warm, dry. laboratory and microbiology Laboratory Tests 11/08/25 05:45 Test 11/08/25 05:45 Range/Units Serum Glucose 66 L 74-106 mg/dL Problem List Chest pain likely in the setting of hypertensive urgency. Rule out structural heart disease. Dyslipidemia. History bilateral carotid stenosis. Hypokalemia. History of TIA. COPD. Obesity. Assessment/Plan Continued all current supportive medical care. Given patient's clinical presentation, chest pain likely in keeping with hypertensive urgency. Given negative troponin level, and unremarkable twelve lead electrocardiogram, doubt ACS. The patient also states that she had a nuclear stress test one month ago with her primary bass string winder, which was found to be negative per patient report. In the setting of an unremarkable transthoracic echocardiogram, there is no further inpatient cardiac workup indicated at this time. I have instructed the patient to follow up with her primary bass string winder in the outpatient setting within 1-2 weeks post discharge. Continue with aggressive blood pressure control; recommend switching amlodipine to nifedipine for tighter blood pressure control and up titrate as tolerated. Additional plan as per the hospital course. Plan discussed with: Patient AICHA VINCENT MD Nov 10, 2025 00:51
== END 2025-11-09 16:28 | disposition home or self-care (01) | DRG 305 ==
LOC: ER 15:49 → OVERFLOW 20:00 → TELE-WESTW 23:10
PROVIDERS: ADMIT Family Medicine; ATTEND Family Medicine
DX: I16.0 Hypertensive urgency (principal); E66.9 Obesity, unspecified; J44.9 Chronic obstructive pulmonary disease, unspecified; I10 Essential (primary) hypertension; E78.5 Hyperlipidemia, unspecified; F41.9 Anxiety disorder, unspecified; E87.6 Hypokalemia; Z90.711 Acquired absence of uterus with remaining cervical stump; Z86.73 Personal history of transient ischemic attack (TIA), and cerebral infarction without residual deficits; Z96.643 Presence of artificial hip joint, bilateral; Z82.49 Family history of ischemic heart disease and other diseases of the circulatory system; Z82.3 Family history of stroke; Z82.0 Family history of epilepsy and other diseases of the nervous system; Z80.6 Family history of leukemia; Z68.31 Body mass index [BMI] 31.0-31.9, adult
CPT/HCPCS: 36415; 70450; 71045; 80053; 80061; 84443; 84484; 85025; 93005; 93306; 96374; G0378; J2405